=== PATIENT | female | born 1955 | race Asian ===

== ENCOUNTER 2018-12-02 13:02 | Emergency (ER) | payer OTHER ==
--- NOTE | 2018-12-02 14:26 | PDOC ---
History of Present Illness - General Chief Complaint: Abnormal Lab Results (Outside) Stated Complaint: ABNORMAL LABS Time Seen by Provider: 12/02/18 13:56 History Source: Care Provider, Family, Shelter Records Exam Limitations: Other (tracheostomy ) - History of Present Illness Initial Comments: 12/02/18 14:11 : [phone] Juan Carlos Choi Daughter: [phone] Edna Transplant surgeon: Dr. Shilo Manley Transplant stock feeder: Dr. Ngoc Valdez Vice President Quality Improvement: Dr. Johnathan Martinez Ms. Segovia is a 63F with extensive past medical history including chronic renal failure s/p renal transplantation February 2018. Her hospital course includes a diagnosis of flu in May 2018 which was complicated by aspergillus and parainfluenza 1. She was admitted to the ICU and found to be hypoxic and intubated. She had a PEG tube while in the ICU and underwent a tracheostomy prior to transfer to the transplant floor at [facility]. She was transferred to residential acute care and had two attempts to wean off vent but her hemoglobin dropped each time. Endoscopy 8 weeks ago did not show a source of bleeding. Hx of hemorrhoids. She has underwent dialysis TIW in the ICU but not outpatient. Daughter used to give erythropoietin every week but is unsure of her current regiment. She continues on her tacro regimen at the correction per daughter but unsure how often tacro levels are checked. She has left arm edema which has been intermittent since transplant. Left arm fistula works per correction. Presenting today because of hemoglobin drop. She denies nausea, vomiting, hemoptysis, or hematemesis. Denies shortness of breath. Denies blood in stool. Denies dysuria. Past History - Past Medical History Allergies/Adverse Reactions: Allergies Allergy/AdvReac Type Severity Reaction Status Date / Time perry Allergy Verified 12/02/18 13:50 peach Allergy Verified 12/02/18 13:50 Home Medications: Ambulatory Orders Aa/Hydrolyzed Collagen, Whey [Lps 15-30 Liquid] 30 ml GT DAILY 12/02/18 Acetaminophen 2 tablet GT PRN PRN 12/02/18 Acetaminophen 650 mg GT QID PRN 12/02/18 Ascorbic Acid [Vitamin C] 500 mg GT DAILY 12/02/18 Carvedilol 6.25 mg GT BID 12/02/18 Folic Acid 1 mg GT DAILY 12/02/18 Folic Acid/Vit B Complex and C [Renal Vitamin Tablet] 0.8 mg GT DAILY 12/02/18 Gabapentin 100 mg GT TID 12/02/18 Insulin Glargine,Hum.rec.anlog [Lantus Solostar PEN (NF)] 8 units SQ DAILY 12/02 Lactulose 10 gm GT DAILY 12/02/18 Mirtazapine 7.5 mg GT DAILY 12/02/18 Omeprazole 20 mg GT DAILY 12/02/18 Prednisone 50 mg GT DAILY 12/02/18 Scopolamine [Transderm-Scop] 1 each TD Q3D 12/02/18 Sertraline HCl 25 mg GT DAILY 12/02/18 Tacrolimus [Prograf] 5 mg GT BID 12/02/18 Vitamins A and D [Vitamin A and D] 113.4 gm TP BID 12/02/18 levETIRAcetam [Keppra Oral Solution -] 500 mg GT BID 12/02/18 Cardiac Disorders: Yes (CHF) COPD: No Diabetes: Yes GI Disorders: Yes (GERD) Disorders: Yes (Kidney failure on dialysis) HTN: Yes Psychiatric Problems: Yes (Major depression, anxiety) Seizures: Yes Other medical history: Respiratory failure - Surgical History Abdominal Surgery: Yes - Suicide/Smoking/Psychosocial Hx Smoking History: Unknown if ever smoked Hx Alcohol Use: No Drug/Substance Use Hx: No Review of Systems - Review of Systems Able to Perform ROS?: No (pt has trach, on vent ) *Physical Exam - Vital Signs Last Vital Signs Temp Pulse Resp BP Pulse Ox 99.7 F H 120 H 18 165/95 98 12/02/18 13:40 12/02/18 13:40 12/02/18 13:40 12/02/18 13:40 12/02/18 13:40 - Physical Exam General Appearance: Yes: Nourished. No: Apparent Distress HEENT: positive: EOMI, JULIANA Neck: positive: Tender, Other (tracheostomy in place ) Respiratory/Chest: positive: Wheezing (mild, at bases of lung ), Other (on vent) Cardiovascular: positive: Regular Rhythm, Tachycardia Vascular Pulses: Dorsalis-Pedis (R): 2+, Doralis-Pedis (L): 2+ Gastrointestinal/Abdominal: positive: Soft. negative: Tender Musculoskeletal: positive: Normal Inspection Extremity: positive: Normal Capillary Refill, Normal Range of Motion, Swelling ( left forearm ) Integumentary: positive: Normal Color, Dry, Warm Neurologic: positive: Fully Oriented, Alert, Normal Mood/Affect ED Treatment Course - LABORATORY CBC & Chemistry Diagram: 12/02/18 14:35 12/02/18 14:35 Medical Decision Making - Medical Decision Making 12/02/18 15:14 This is a 63F s/p renal transplant in Feb 2018, immunosuppressed on tacrolimus , on tracheostomy, presenting from correction with abnormal labs (decreased hemoglobin at 6.3). Today she has elevated heart rate and temperature. Sepsis work up started. Will obtain CBC, CMP, UA, CXR, lactic acid, urine culture, stool culture, stool O&P, U/S of left forearm, tacro level, and type and cross. 12/02/18 16:01 Given patient's hemoglobin, will transfuse 2 units of blood over 4 hours. Discussed the indications, risks, and benefits of blood transfusion with the patient, who consents to receiving blood products. Will admit for blood transfusion. 12/02/18 16:11 Labs show elevated WBC, Hemoglobin decreased at 6.8, and elevated BUN and Cr at 63.1 and 1.4. BNP is elevated at 645.6. We will give 20 mg Lasix x2, once before each unit of blood transfused. Laboratory Tests 12/02/18 12/02/18 14:35 14:35 WBC 21.3 H Hgb 6.8 L* BUN 63.1 H Creatinine 1.4 H B-Natriuretic Peptide 645.6 H 12/02/18 17:00 Blood transfusion and lasix held until access with 20 gauge needle can be obtained. Spoke with the intensive care team and nephrology team and given that the patient is less than 1 year s/p kidney transplant they would prefer to transfer her to the primary transplant team for continuity of care. Spoke with the Dr. Valdez, transplant stock feeder at [facility] who agrees to accept the patient for transfer. We will arrange for medical transport for an ED to ED transfer. *DC/Admit/Observation/Transfer Diagnosis at time of Disposition: Renal transplant recipient - Discharge Dispostion Disposition: TRANSFER ACUTE CARE/OTHER HOSP Condition at time of disposition: Guarded Decision to Admit order: No - Referrals - Patient Instructions - Post Discharge Activity - Transfer to Acute Care Facility Receiving Facility: [facility] Accepting Physician:: Dr. Valdez Transfer comment: Patient transfer accepted by transplant team for continuity of care.
[2018-12-02 14:51] VITALS: BMI 23.3
[2018-12-02 14:51] LABS: BASO % 0.4 % (0-2.0); EOS % 3.6 % (0-4.5); HEMATOCRIT 21.4 % (32.4-45.2); LYMPH % 4.8 % (8-40); MCH 29.6 pg (25.7-33.7); MCHC 31.8 g/dl (32.0-36.0); MEAN CELL VOLUME 92.8 fl (80-96); MEAN PLT VOLUME 6.6 fl (7.5-11.1); MONO % 2.4 % (3.8-10.2); NEUT % 88.8 % (42.8-82.8); PLATELET COUNT 336 K/MM3 (134-434); RBC 2.31 M/mm3 (3.60-5.2); RDW 17.8 % (11.6-15.6); WHITE BLOOD COUNT 21.3 K/mm3 (4.0-10.0)
[2018-12-02 14:58] LABS: VENOUS PC02 57.3 mmHg (41-51); VENOUS PH 7.3 (7.31-7.41); VENOUS PO2 43.1 mmHg (30-40)
[2018-12-02 15:00] LABS: HEMOGLOBIN 6.8 GM/dL (10.7-15.3)
[2018-12-02 15:13] LABS: INR 0.92 (0.83-1.09); PROTHROMBIN TIME (PATIENT) 10.9 SEC (9.7-13.0)
[2018-12-02 15:15] LABS: ACTIVATED PTT 33.7 SECONDS (25.2-36.5)
[2018-12-02 15:18] LABS: ALBUMIN 2.3 g/dl (3.4-5.0); BILIRUBIN,TOTAL 0.3 mg/dL (0.2-1); BLOOD UREA NITROGEN 63.1 mg/dL (7-18); CALCIUM 8.6 mg/dL (8.5-10.1); CREATININE 1.4 mg/dL (0.55-1.3); N-TERMINAL BNP 645.6 pg/ml (5-125); POTASSIUM 4.5 mmol/L (3.5-5.1)
[2018-12-02] MEDS ORDERED: FUROSEMIDE 40 MG/4 ML INJECTABLE VIAL IVPUSH ONE ×2 (16:01→16:08)
[2018-12-02] MEDS ORDERED: FUROSEMIDE 40 MG/4 ML INJECTABLE VIAL ONE (16:09)
[2018-12-02 16:10] LABS: ANISOCYTOSIS 1+; MACROCYTOSIS 0; PLATELET ESTIMATE NORMAL
[2018-12-02 16:57] LABS: EPI CELLS 7.3 /HPF (0-5/HPF); HYALINE CASTS 4 /lpf (0-8); URINE APPEARANCE CLEAR; URINE BACTERIA 1.9 /hpf (NEGATIVE); URINE BILIRUBIN NEGATIVE (NEGATIVE); URINE COLOR YELLOW; URINE GLUCOSE (UA) NEGATIVE (NEGATIVE); URINE KETONE NEGATIVE (NEGATIVE); URINE LEUK ESTERASE 2+ (NEGATIVE); URINE NITRITE NEGATIVE (NEGATIVE); URINE PROTEIN TRACE (NEGATIVE); URINE RBC 1 /hpf (0-4); URINE UROBILINOGEN 0.2 mg/dL (0.2-1.0); URINE WBC 7 /hpf (0-5)
--- NOTE | 2018-12-02 17:39 | PDOC ---
Documentation entered by Javi Dumont SCRIBE, acting as scribe for Jen Esquivel MD. Jen Esquivel MD: This documentation has been prepared by the Tim cooper Joel, SCRIBE, under my direction and personally reviewed by me in its entirety. I confirm that the documentation accurately reflects all work, treatment, procedures, and medical decision making performed by me. Attending Attestation - Resident Resident Name: Harsh Hart - HPI HPI: 12/02/18 16:24 The patient is a 63 year old female with a significant PMH of chronic renal failure s/p renal transplant (on Tacrolimus), CHF, DM, respiratory failure (s/p trach & vent) who presents to the emergency department for evaluation of low hemoglobin levels. The patients family states that the patient had a renal transplant in February 2018 and has a history of low hemoglobin levels at the long-term acute care she stays at. The patients family also notes intermittent left arm edema since the patients transplant. History is limited secondary to the patients condition. Allergies: NKDA Past surgical history: Unspecified abdominal surgery. Social history: No reported cigarette, alcohol, or drug use. PCP: Dr. Michael Transplant surgeon: Dr. Shilo Manley Transplant last remodeler repairer: Dr. Nogc Valdez - Physicial Exam PE: 12/02/18 17:34 Agree with resident exam. Patient is alert and oriented, connected to the vent , in no respiratory distress. + diffuse pitting edema to both arms and legs, worse than her chronic edema as per family. - Medical Decision Making 12/02/18 17:36 Pt presents to the ED for severe anemia. Grossly edematous. Will transfuse, treat with lasix and admit to medicine for continued monitoring.
[2018-12-02 21:43] VITALS: BP 160/89; PULSE 106; TEMP 98.2
--- NOTE | 2018-12-03 10:43 | EKG ---
Test Reason : Blood Pressure : / mmHG Vent. Rate : 110 BPM Atrial Rate : 110 BPM P-R Int : 148 ms QRS Dur : 076 ms QT Int : 320 ms P-R-T Axes : 061 068 058 degrees QTc Int : 433 ms SINUS TACHYCARDIA POSSIBLE LEFT ATRIAL ENLARGEMENT BORDERLINE ECG NO PREVIOUS ECGS AVAILABLE Confirmed by ALLIE MICHAEL, MARE ([id number]) on 12/03/2018 10:42:47 AM Referred By: Confirmed By:MARE KELLEY MD
--- NOTE | 2018-12-03 13:19 | PDOC ---
Patient Follow-up (Call Back) - Post ED Follow - Up Condition at time of discharge: Guarded Disposition at time of original discharge: TRANSFER ACUTE CARE/OTHER HOSP - Disposition Additional Instructions/Notes: Received callback from lab stating that patient's blood culture had gram positive cocci in clusters. Patient was noted to have been transferred to [facility]. Information regarding results was endorsed to MALLY Cardoza at [facility] ED.
== END 2018-12-02 22:20 | disposition short-term general hospital (02) ==
LOC: JER 13:02 → UNDOADMIN 16:01 → JERBED 16:01
DX: D64.9 Anemia, unspecified (principal); R60.0 Localized edema; D72.829 Elevated white blood cell count, unspecified; Z93.0 Tracheostomy status; Z94.0 Kidney transplant status; I11.0 Hypertensive heart disease with heart failure; I50.9 Heart failure, unspecified; E11.9 Type 2 diabetes mellitus without complications; Z79.4 Long term (current) use of insulin; Z99.11 Dependence on respirator [ventilator] status; F33.9 Major depressive disorder, recurrent, unspecified; F41.8 Other specified anxiety disorders
CPT/HCPCS: 36415; 71045-TC-FY; 80053; 81003; 82272; 82550; 82553; 82803; 83605; 83880; 84484; 85025; 85610; 85730; 86850; 86870; 86900; 86901; 86902; 86922; 87040; 87045; 87046; 87086; 87177; 87186; 87209; 87324; 87449; 93005; 93010; 99285-25

== ENCOUNTER 2018-12-30 19:24 | Emergency (ER) | payer OTHER ==
[2018-12-30 20:08] VITALS: TEMP 102.2; BMI 19.1
[2018-12-30] MEDS ORDERED: ACETAMINOPHEN 1000 MG/100 ML VIAL (NON FORMULARY) IVPB ONE (20:25)
[2018-12-30] MEDS ORDERED: ACETAMINOPHEN INJECTION 100 ML IVPB ONE (20:37)
[2018-12-30] MEDS ORDERED: SODIUM CHLORIDE 1,000 ML IV STA (20:44)
[2018-12-30] MEDS ORDERED: VANCOMYCIN 1 GM in D5W (PRE-DOCKED) 1,000 MG/250 ML IVPB ONE (20:52)
[2018-12-30] MEDS ORDERED: PIPERACILLIN/TAZOB 3.375 GM 3.375 GM in DEXTROSE 5%-WATER - 50 ML IVPB ONE (20:52)
--- NOTE | 2018-12-30 21:04 | PDOC ---
History of Present Illness - General Chief Complaint: Respiratory Stated Complaint: RESPIRATORY DISTRESS Time Seen by Provider: 12/30/18 20:23 History Source: Patient, Family (daughter), Senior Care Records, Old Records Exam Limitations: Other (trach tube, difficult to understand) - History of Present Illness Initial Comments: 12/30/18 20:55 63yo F PMH of chronic renal failure s/p renal transplant 02/2018 (on Prograf), CHF, HTN, Respiratory failure (s/p trach & vent), Seizure disorder, DM? BIBA from [facility] for [place]. [place], patient was saturating at 67% with HR of 129 and bp 216/119. Pt states she was having difficulty breathing today and felt better after suctioning. She was discharged from [facility] 12/22 and sent to [facility] due to sepsis and low hemoglobin. Pt states that she was doing fine until today. She denies chest pain, cough, chills, abdominal pain, n/v/d, dysuria, back pain, headaches. She says she is still able to produce urine. PMD: Fernanda Transplant Land Inspector: Dr. Valdez PMH: see hpi PSH; see hpi Meds: see med rec Allergies: nkda Past History - Past Medical History Allergies/Adverse Reactions: Allergies Allergy/AdvReac Type Severity Reaction Status Date / Time perry Allergy Verified 12/30/18 20:08 peach Allergy Verified 12/30/18 20:08 Home Medications: Ambulatory Orders Tacrolimus [Prograf] 5 mg GT BID 12/02/18 Vitamins A and D [Vitamin A and D] 113.4 gm TP BID 12/02/18 levETIRAcetam [Keppra Oral Solution -] 750 mg GT DAILY 12/02/18 Aa/Hydrolyzed Collagen, Whey [Lps 15-30 Liquid] 30 ml PO DAILY 12/30/18 Cholecalciferol (Vitamin D3) [Vitamin D3 -] 800 unit GT BID 12/30/18 Darbepoetin Mervin [Aranesp] 40 mcg IM WEEKLY 12/30/18 Fluconazole [Diflucan 40Mg/ml Suspension -] 5 ml GT TID 12/30/18 Heparin - 5,000 unit SQ BID 12/30/18 Lidocaine 5% Patch [Lidoderm Patch -] 1 patch TP DAILY 12/30/18 Metoprolol Tartrate 25 mg PO BID 12/30/18 Tramadol HCl [Ultram] 50 mg GT Q6H PRN 12/30/18 Cardiac Disorders: Yes (CHF) COPD: No Diabetes: Yes GI Disorders: Yes (GERD) Disorders: Yes (Kidney failure on dialysis) HTN: Yes Psychiatric Problems: Yes (Major depression, anxiety) Seizures: Yes - Surgical History Abdominal Surgery: Yes - Suicide/Smoking/Psychosocial Hx Smoking History: Unknown if ever smoked Hx Alcohol Use: No Drug/Substance Use Hx: No Review of Systems - Review of Systems Constitutional: No: Chills, Fever HEENTM: No: Symptoms Reported Respiratory: Yes: Shortness of Breath. No: Cough Cardiac (ROS): No: Chest Pain, Palpitations, Syncope ABD/GI: No: Constipated, Diarrhea, Nausea, Vomiting, Abdominal cramping : No: Burning, Dysuria Musculoskeletal: No: Symptoms Reported Integumentary: No: Symptoms Reported Neurological: No: Symptoms reported *Physical Exam - Vital Signs Last Vital Signs Temp Pulse Resp BP Pulse Ox 102.2 F H 138 H 22 H 155/95 98 12/30/18 20:04 12/30/18 20:04 12/30/18 20:04 12/30/18 20:04 12/30/18 20:04 - Physical Exam General Appearance: Yes: Moderate Distress, Thin HEENT: positive: EOMI, JULIANA, Other (dental plaques) Neck: positive: Trachea midline, Supple, Other (tracheostomy tube) Respiratory/Chest: positive: Respiratory Distress, Rhonchi. negative: Accessory Muscle Use, Crackles, Wheezing Cardiovascular: positive: S1, S2, Tachycardia. negative: Edema, JVD, Murmur Vascular Pulses: Dorsalis-Pedis (R): 1+, Doralis-Pedis (L): 1+ Gastrointestinal/Abdominal: positive: Normal Bowel Sounds, Soft, Other (PEG tube ). negative: Tender, Guarding, Rebound Musculoskeletal: negative: CVA Tenderness Extremity: positive: Other (LUE pitting edema with palpable thrill in AV fistula. thin RUE and LE bilaterally, no edema). negative: Coldness, Cyanosis, Swelling, Calf Tenderness Integumentary: positive: Normal Color, Dry, Warm, Other (6x7 cm stage 4 sacral ulcer) Neurologic: positive: title examiner II-XII NML intact, Fully Oriented, Alert, Normal Mood/ Affect, Normal Response ED Treatment Course - LABORATORY CBC & Chemistry Diagram: 12/30/18 21:00 12/30/18 21:00 - RADIOLOGY Radiology Studies Ordered: Category Date Time Status CHEST X-RAY PORTABLE* [RAD] Stat Radiology 12/30/18 20:24 Taken Medical Decision Making - Critical Care Time Total Critical Care Time (minutes): 30 Critical Care Statement: The care of this patient involved high complexity decision making to prevent further life threatening deterioration of the patient 's condition and/or to evaluate & treat vital organ system(s) failure or risk of failure. - Medical Decision Making 12/30/18 21:04 63yo F PMH of chronic renal failure s/p renal transplant 02/2018 (on Prograf), CHF, HTN, Respiratory failure (s/p trach & vent), Seizure disorder, DM? BIBA from [facility] [place]. [place], patient was saturating at 67% with FiO2 at 21% with HR of 129 and bp 216/119. Pt states she was having difficulty breathing today and felt better after suctioning. She was discharged from [facility] 12/22 and sent to [facility] due to sepsis and low hemoglobin. Pt states that she was doing fine until today. She denies chest pain, cough, chills , abdominal pain, n/v/d, dysuria, back pain, headaches. She says she is still able to produce urine. Vitals: tachcyardic, tachypneic, saturating 100% on vent via trach at 40%FiO2 , febrile 102 PE: rhonchi in both lung campbell, diaphoretic, L arm pitting edema with palpable thrill. Sacral ulcer stage 4, 6x7cm ddx includes but not limited to concerning for pna or infectious process v. fluid overload. Pt is on immunosupressants. sepsis w/u. giving fluids, ofirmev, vanc/zosyn. will call transplant team at [facility] 12/30/18 21:05 spoke to transplant hydrogeology professor Dr. Jones at [facility] covering for Dr. Valdez. Agrees with transfer, is calling icu and will call back regarding availability. labs significant for white count 28. hgb 12, not neutropenic. chem sig for cr 1.9 (1.4 12/02/18). pH VBG 7.22 with elevated CO2, likely respiratory acidosis. No anion gap or lactic acidosis, could be uremic. bnp pending. CXR shows bilateral infiltrates v. congestion. Likely infiltrates given clinical presentation. UA pending. EKG: sinus tachycardia at 142, pr 132, qtc 439. no leila or depressions. 12/30/18 22:[address] Jones (covering for Dr. Valdez) at [facility]. Agrees to transfer but cannot accept patient under service due to pt needing ICU. Spoke to Agri Business Agent Dr. Betancourt at [facility], will accept patient however no beds available. Suggested ER-ER transfer. Spoke to ER attending Dr. Victor who will see pt in ED. UA positive for infection. getting antibiotics. UTI v. PNA (pna v. chf) with respiratory acidosis. Maintaining MAPS. Pt and consented to transfer. Pt on monitor, Vent, Vanc,Zosyn. *DC/Admit/Observation/Transfer Diagnosis at time of Disposition: Sepsis Qualifiers: Sepsis type: sepsis due to unspecified organism Qualified Code(s): A41.9 - Sepsis, unspecified organism UTI (urinary tract infection) Qualifiers: Urinary tract infection type: site unspecified Hematuria presence: without hematuria Qualified Code(s): N39.0 - Urinary tract infection, site not specified PNA (pneumonia) Qualifiers: Pneumonia type: due to unspecified organism Laterality: bilateral Lung location : unspecified part of lung Qualified Code(s): J18.9 - Pneumonia, unspecified organism - Discharge Dispostion Disposition: TRANSFER ACUTE CARE/OTHER HOSP - Referrals Referrals: Manas Michael MD [Primary Care Provider] - - Patient Instructions - Post Discharge Activity
[2018-12-30 21:16] LABS: VENOUS PC02 67.2 mmHg (41-51); VENOUS PH 7.22 (7.31-7.41); VENOUS PO2 36.4 mmHg (30-40)
[2018-12-30] MEDS ORDERED: VANCOMYCIN 1 GRAM (PRE-DOCKED) 1,000 MG/250 ML BAG IVPB ONE (21:19)
[2018-12-30] MEDS ORDERED: PIPERACILLIN/TAZOB 3.375 GM 3.375 GM/50 ML BAG IVPB ONE (21:20)
--- NOTE | 2018-12-30 21:24 | PDOC ---
Documentation entered by Kristy Easton SCRIBE, acting as scribe for Kirstni Tran MD. Kirstin Tran MD: This documentation has been prepared by the scribe, Kristy Easton SCRIBE, under my direction and personally reviewed by me in its entirety. I confirm that the documentation accurately reflects all work, treatment, procedures, and medical decision making performed by me. Attending Attestation - Resident Resident Name: RikaJulisa - ED Attending Attestation I have performed the following: I have examined & evaluated the patient, The case was reviewed & discussed with the resident, I agree w/resident's findings & plan, Exceptions are as noted - HPI HPI: 12/30/18 20:35 63-year-old female brought in by ambulance from a [facility] for respiratory distress and sepsis. She is febrile, status post renal transplant 2018 and recently discharged from [facility] : [phone] Soon Jimbo Daughter: [phone] Edna Transplant surgeon: Dr. Shilo Manley Transplant information delivery analyst: Dr. Ngoc Valdez Etl Consultant: Dr. Johnathan Martinez - Physicial Exam PE: 12/30/18 20:50 GENERAL: 63 yo femlae in repsitaory distress upon arrival with hypoxia and tachycardia HEENT: Normocephalic, atraumatic. PERRLA, EOMI. No conjunctival pallor. Sclera are non- icteric. Moist mucous membranes. Oropharynx is clear. NECK: tracheostomy tube intact, pt on vent CARDIOVASCULAR: ++tachycardia PULMONARY: ++ coarse rhonchi. ABDOMINAL: Soft. Non-tender MUSCULOSKELETAL Normal range of motion at all joints. No bony deformities or tenderness. No CVA tenderness. EXTREMITIES: No cyanosis. No clubbing. No edema. No calf tenderness. SKIN: +++stage 4 decubitus ulcer 6cm x 7 cm No jaundice. NEUROLOGICAL: Alert, awake, appropriate. PSYCHIATRIC: Cooperative. Good eye contact. Appropriate mood and affect. 12/30/18 21:19 12/30/18 21:23 - Medical Decision Making 12/30/18 23:12 patient presents tachycardic, febrile, hypoxic uA is positive for 1002 WBCs, +3 leuks, greater than 400 Bacteria cr=1.9 , bun=57 cxr: + chf vs infiltrates. Vanco and zosyn given After suctioning patient's respiratory status improved Pt's previously treated at [facility] and d/c from their facilty 12/22/18 IMP urosepsis,mucus plug in trach(removed),renal transplant pt Since her renal transplant team is at [facility] she has been accepted there and is currently being transferred
[2018-12-30 21:27] LABS: BASO % 0.4 % (0-2.0); EOS % 1.9 % (0-4.5); HEMATOCRIT 36.9 % (32.4-45.2); LYMPH % 3.3 % (8-40); MCH 30.5 pg (25.7-33.7); MCHC 32.4 g/dl (32.0-36.0); MEAN CELL VOLUME 94.1 fl (80-96); MEAN PLT VOLUME 6.8 fl (7.5-11.1); MONO % 3.9 % (3.8-10.2); NEUT % 90.5 % (42.8-82.8); PLATELET COUNT 341 K/MM3 (134-434); RBC 3.92 M/mm3 (3.60-5.2); RDW 16.4 % (11.6-15.6)
[2018-12-30 21:39] LABS: INR 0.95 (0.83-1.09); PROTHROMBIN TIME (PATIENT) 11.2 SEC (9.7-13.0)
[2018-12-30 21:44] LABS: ALBUMIN 3.3 g/dl (3.4-5.0); BILIRUBIN,TOTAL 0.4 mg/dL (0.2-1); BLOOD UREA NITROGEN 57.9 mg/dL (7-18); CREATININE 1.9 mg/dL (0.55-1.3); POTASSIUM 4.7 mmol/L (3.5-5.1); TOT PROT 7.8 g/dl (6.4-8.2)
[2018-12-30 22:10] LABS: EPI CELLS 5.5 /HPF (0-5/HPF); HYALINE CASTS 20 /lpf (0-8); URINE APPEARANCE TURBID; URINE BACTERIA 469.3 /hpf (NEGATIVE); URINE BILIRUBIN NEGATIVE (NEGATIVE); URINE COLOR YELLOW; URINE GLUCOSE (UA) NEGATIVE (NEGATIVE); URINE KETONE NEGATIVE (NEGATIVE); URINE LEUK ESTERASE 3+ (NEGATIVE); URINE NITRITE NEGATIVE (NEGATIVE); URINE PROTEIN 2+ (NEGATIVE); URINE RBC 6 /hpf (0-4); URINE UROBILINOGEN 0.2 mg/dL (0.2-1.0); URINE WBC 1002 /hpf (0-5)
[2018-12-30 22:11] LABS: N-TERMINAL BNP 4609.7 pg/ml (5-125)
[2018-12-31 00:32] VITALS: BP 166/96; PULSE 109
--- NOTE | 2018-12-31 08:26 | EKG ---
Test Reason : Blood Pressure : / mmHG Vent. Rate : 142 BPM Atrial Rate : 142 BPM P-R Int : 132 ms QRS Dur : 076 ms QT Int : 286 ms P-R-T Axes : 051 072 083 degrees QTc Int : 439 ms POOR DATA QUALITY, INTERPRETATION MAY BE ADVERSELY AFFECTED SINUS TACHYCARDIA LEFT ATRIAL ENLARGEMENT NONSPECIFIC ST ABNORMALITY ABNORMAL ECG WHEN COMPARED WITH ECG OF 02-DEC-2018 14:35, ST NOW DEPRESSED IN LATERAL LEADS T WAVE INVERSION NO LONGER EVIDENT IN ANTERIOR LEADS Confirmed by ALLIE MICHAEL, MARE ([id number]) on 12/31/2018 8:26:32 AM Referred By: Confirmed By:MARE KELLEY MD
== END 2018-12-30 23:30 | disposition short-term general hospital (02) ==
LOC: JER 19:24
PROC: 3E0337Z Introduction of Electrolytic and Water Balance Substance into Peripheral Vein, Percutaneous Approach (ICD-10-PCS; principal; 2018-12-30)
PROC: 3E03329 Introduction of Other Anti-infective into Peripheral Vein, Percutaneous Approach (ICD-10-PCS; 2018-12-30)
PROC: 3E033NZ Introduction of Analgesics, Hypnotics, Sedatives into Peripheral Vein, Percutaneous Approach (ICD-10-PCS; 2018-12-30)
PROC: 3E03329 Introduction of Other Anti-infective into Peripheral Vein, Percutaneous Approach (ICD-10-PCS; 2018-12-30)
DX: A41.9 Sepsis, unspecified organism (principal); J18.9 Pneumonia, unspecified organism; N39.0 Urinary tract infection, site not specified; T17.890A Other foreign object in other parts of respiratory tract causing asphyxiation, initial encounter; X58.XXXA Exposure to other specified factors, initial encounter; Y93.89 Activity, other specified; Y92.122 Bedroom in nursing home as the place of occurrence of the external cause; Y99.8 Other external cause status; Z43.0 Encounter for attention to tracheostomy; Z94.0 Kidney transplant status; I11.0 Hypertensive heart disease with heart failure; I50.9 Heart failure, unspecified; E11.9 Type 2 diabetes mellitus without complications; Z99.11 Dependence on respirator [ventilator] status
CPT/HCPCS: 36415; 71045-TC-FY; 80053; 81003; 82803; 83605; 83880; 84484; 85025; 85610; 85730; 87040; 87086; 87186; 93005; 93010; 96361; 96365; 96375; 99285-25; J0131; J7030

== ENCOUNTER 2019-08-13 23:08 | Inpatient (IN) | payer OTHER ==
--- NOTE | 2019-08-13 23:13 | PDOC ---
History of Present Illness - General Stated Complaint: RESPIRATORY DISTRESS Time Seen by Provider: 08/13/19 23:11 - History of Present Illness Initial Comments: 08/13/19 23:48 63yoF with ESRD, Renal transplant (15months ago), Trach/.vent dependent, Anemi a, HTN, CHF, pnuemonia on ceftriaxone regimen who presents with hypotension, tachycardia and fever. The patient was satting in the low 90s, BP 77/46, T99.5F. The patient has a history of flu, pna and aspergillosus in 05/2018. Admitted to ICU, had PEG tube placement, transferred to [facility] and had Trach placed. Patient cannot provide further history at this time but is awake and alert ROS unable to obtain 2/2 trach PE GENERAL: Awake, alert HEAD: No signs of trauma, normocephalic, atraumatic EYES: EOMI, sclera anicteric, conjunctiva clear ENT: oropharynx clear without exudates. Moist mucosa NECK: Normal ROM, supple LUNGS: No distress, speaks full sentences, coarse breath sounds anteriorly HEART: tachycardic rate and rhythm, normal S1 and S2, no murmurs, rubs or gallops, peripheral pulses normal and equal bilaterally. ABDOMEN: Soft, nontender, No guarding, no rebound. No masses EXTREMITIES : Normal inspection, Normal range of motion, no edema. No clubbing or cyanosis. NEUROLOGICAL: no focal deficits SKIN: Warm, Dry, normal turgor, no rashes or lesions noted MDM DDX including but not limited to: Sepsis 2/2 pna vs uti r/o influenza vs rsv vs covid ED Course: CBCD WBC 31.9 K/mm3 (4.0-10.0) H* 08/13/19 23:30 RBC 2.10 M/mm3 (3.60-5.2) L 08/13/19 23:30 Hgb 7.1 GM/dL (10.7-15.3) L 08/13/19 23:30 Hct 21.3 % (32.4-45.2) L D 08/13/19 23:30 MCV 101.6 fl (80-96) H 08/13/19 23:30 MCHC 33.5 g/dl (32.0-36.0) 08/13/19 23:30 RDW 15.5 % (11.6-15.6) 08/13/19 23:30 Plt Count 232 K/MM3 (134-434) D 08/13/19 23:30 MPV 7.4 fl (7.5-11.1) L 08/13/19 23:30 CMP Sodium 146 mmol/L (136-145) H 08/13/19 23:30 Potassium 4.1 mmol/L (3.5-5.1) 08/13/19 23:30 Chloride 111 mmol/L (98-107) H 08/13/19 23:30 Carbon Dioxide 24 mmol/L (21-32) 08/13/19 23:30 Anion Gap 11 MMOL/L (8-16) 08/13/19 23:30 BUN 78.9 mg/dL (7-18) H 08/13/19 23:30 Creatinine 3.9 mg/dL (0.55-1.3) H 08/13/19 23:30 Calcium 9.7 mg/dL (8.5-10.1) 08/13/19 23:30 Total Bilirubin 0.4 mg/dL (0.2-1) 08/13/19 23:30 AST 25 U/L (15-37) 08/13/19 23:30 ALT 23 U/L (13-61) 08/13/19 23:30 Alkaline Phosphatase 76 U/L (45-117) 08/13/19 23:30 Total Protein 6.4 g/dl (6.4-8.2) 08/13/19 23:30 Albumin 2.0 g/dl (3.4-5.0) L 08/13/19 23:30 Patient hypotensive, tachycardic, trach, hypoxic Patient with labwork significnat for leukocytosis (31.9), anemia (7/21.3) and GORDON (Cr 3.9) Patient given fluid resus, vanc, zosyn, tylenol guiac negative CXR: multilobar PNA EKG: sinus tach 106bpm, Patient's transplant surgeons and patient's regular care at [facility]. [facility] case with [facility] Georges[facility] Central line and levophed pressor started for patient repeat suctioning required for mucus plug Pending transport to Montefilupe Brewster, PGY2 Emergency Medicine Past History - Past Medical History Allergies/Adverse Reactions: Allergies Allergy/AdvReac Type Severity Reaction Status Date / Time perry Allergy Verified 08/14/19 00:45 peach Allergy Verified 08/14/19 00:45 prunes Allergy Verified 08/14/19 00:45 Home Medications: Ambulatory Orders Tacrolimus [Prograf] 5 mg GT BID 12/02/18 Vitamins A and D [Vitamin A and D] 113.4 gm TP BID 12/02/18 levETIRAcetam [Keppra Oral Solution -] 750 mg GT DAILY 12/02/18 Aa/Hydrolyzed Collagen, Whey [Lps 15-30 Liquid] 30 ml PO DAILY 12/30/18 Cholecalciferol (Vitamin D3) [Vitamin D3 -] 800 unit GT BID 12/30/18 Darbepoetin Mervin [Aranesp] 40 mcg IM WEEKLY 12/30/18 Fluconazole [Diflucan 40Mg/ml Suspension -] 5 ml GT TID 12/30/18 Heparin - 5,000 unit SQ BID 12/30/18 Lidocaine 5% Patch [Lidoderm Patch -] 1 patch TP DAILY 12/30/18 Metoprolol Tartrate 25 mg PO BID 12/30/18 Tramadol HCl [Ultram] 50 mg GT Q6H PRN 12/30/18 Cardiac Disorders: Yes (CHF) COPD: No Diabetes: Yes GI Disorders: Yes (GERD) Disorders: Yes (Kidney failure on dialysis) HTN: Yes Psychiatric Problems: Yes (Major depression, anxiety) Seizures: Yes - Surgical History Abdominal Surgery: Yes - Psycho Social/Smoking Cessation Hx Smoking History: Unknown if ever smoked Hx Alcohol Use: No Drug/Substance Use Hx: No ED Treatment Course - LABORATORY CBC & Chemistry Diagram: 08/13/19 23:30 08/13/19 23:30 Discharge - Discharge Information Problems reviewed: Yes Clinical Impression/Diagnosis: Sepsis, PNA (pneumonia), Renal transplant recipient, Anemia, Renal failure Condition: Critical Disposition: TRANSFER ACUTE CARE/OTHER HOSP - Follow up/Referral Referrals: Manas Michael MD [Primary Care Provider] - - Patient Discharge Instructions - Post Discharge Activity
[2019-08-13] MEDS ORDERED: ACETAMINOPHEN 1000 MG/100 ML VIAL (NON FORMULARY) IVPB ONE (23:24)
[2019-08-13] MEDS ORDERED: VANCOMYCIN 1 GM in D5W (PRE-DOCKED) 1,000 MG/250 ML IVPB ONE (23:24)
[2019-08-13] MEDS ORDERED: PIPERACILLIN/TAZOB 2.25 GM 2.25 GM in DEXTROSE 5%-WATER - 50 ML IVPB ONE (23:24)
[2019-08-13] MEDS ORDERED: PIPERACILLIN/TAZOB 2.25 GM 2.25 GM/50 ML BAG IVPB ONE (23:37)
[2019-08-13] MEDS ORDERED: VANCOMYCIN 1 GRAM (PRE-DOCKED) 1,000 MG/250 ML BAG IVPB ONE (23:37)
[2019-08-13] MEDS ORDERED: ACETAMINOPHEN INJECTION 100 ML IVPB ONE (23:37)
[2019-08-13 23:43] LABS: BASO % 0.5 % (0-2.0); EOS % 0.1 % (0-4.5); HEMATOCRIT 21.3 % (32.4-45.2); HEMOGLOBIN 7.1 GM/dL (10.7-15.3); LYMPH % 11.8 % (8-40); MCHC 33.5 g/dl (32.0-36.0); MEAN CELL VOLUME 101.6 fl (80-96); MEAN PLT VOLUME 7.4 fl (7.5-11.1); MONO % 2.7 % (3.8-10.2); NEUT % 84.9 % (42.8-82.8); PLATELET COUNT 232 K/MM3 (134-434); RDW 15.5 % (11.6-15.6)
[2019-08-13 23:45] LABS: ARTERIAL BLD GAS O2 SATURATION 97.7 % (95-98); ARTERIAL BLOOD GAS BASE EXCESS -0.9 meq/l (-2-2); ARTERIAL BLOOD GAS PCO2 38.2 mmHg (35-45); ARTERIAL BLOOD GAS PO2 98.1 mmHg (80-100); CARBOXYHEMOGLOBIN 2.6 % (0-2)
[2019-08-13 23:50] LABS: WHITE BLOOD COUNT 31.9 K/mm3 (4.0-10.0)
[2019-08-13 23:51] LABS: INR 1.39 (0.83-1.09); PROTHROMBIN TIME (PATIENT) 16.4 SEC (9.7-13.0)
[2019-08-13 23:54] LABS: ACTIVATED PTT 40.8 SECONDS (25.2-36.5)
[2019-08-13] MEDS ORDERED: SODIUM CHLORIDE 0.9% 1000 ML INFUS.BAG IV ONE (23:54)
--- NOTE | 2019-08-14 00:09 | PDOC ---
Documentation entered by Philly Jennings SCRIBE, acting as scribe for Stacy Franco DO. Stacy Franco DO: This documentation has been prepared by the kenneth, Philly Jennings SCRIBE, under my direction and personally reviewed by me in its entirety. I confirm that the documentation accurately reflects all work, treatment, procedures, and medical decision making performed by me. Attending Attestation - Resident Resident Name: Melva Brewster - ED Attending Attestation I have performed the following: I have examined & evaluated the patient, The case was reviewed & discussed with the resident, I agree w/resident's findings & plan, Exceptions are as noted - HPI HPI: 08/14/19 00:15 The patient is a 63-year-old female with a past medical history significant for chronic renal failure s/p renal transplant (02/2018, at [facility] w/ Dr. Sandeep Valdez), CHF, HTN, Respiratory failure s/p trach who presents to the emergency department from [facility] with hypotension and hypoxia. The patient had lab work done yesterday, which was significant for elevated WBC and CXR significant for pneumonia. The patient denies chest pain. History is limited due to the patient's clinical condition. The patient's reports the patient is verbal at the baseline. He last saw the patient on Saturday, and the patient was doing fine. The reports the patient has been working with respiratory to have the trach removed, the patient would do intermittent on and off the vent. Patient currently isn't doing dialysis The reports the patient had a Kidney transplant 02/2018 at [facility] with Dr. Sandeep Valdez. Following the patient stopped dialysis. The reports the patient was doing until May of that year. The patient had a fever, unrelieved with medication. The patient was seen at [facility] ER, was diagnosed with pneumonia, intubated for 2 weeks without improvement, then switched over to trach. The patient stayed at the ICU for 3 months, 1 month on the floor, then was discharged to a [facility] in [place]. The patient was discharged from the facility to [facility] in November of 2018. Allergies: Malin and peach PMD: Fernanda Transplant Press Loader: Dr. Vladez at [facility]. - Physicial Exam PE: 08/14/19 00:32 GENERAL: Awake. Lethargic, Cachectic appearing. in no acute distress HEAD: No signs of trauma EYES: PERRLA, EOMI, sclera anicteric, conjunctiva clear ENT: Auricles normal inspection, hearing grossly normal, nares patent, oropharynx clear without exudates. Moist mucosa NECK: +trach in place, with thick mucus production. LUNGS: +very coarse breath sounds bilaterally. HEART: +tachycardic, hypotensive. ABDOMEN: Peg tube in place, Soft, nontender. +light brown diarrhea. EXTREMITIES: Left upper extremity AV fistula with bruit and thrill. no edema. No clubbing or cyanosis. No cords, erythema, or tenderness NEUROLOGICAL: Nonverbal, responsive. Moving all extremity, generalized weakness. SKIN: Hot to touch, Temperature at the ER 100. - Critical Care Time Total Critical Care Time: 60 Critical Care Statement: The care of this patient involved high complexity decision making to prevent further life threatening deterioration of the patient's condition and/or to evaluate & treat vital organ system(s) failure or risk of failure. - Medical Decision Making 08/14/19 00:01 I, Dr. Stacy Franco, DO, attest that this document has been prepared under my direction and personally reviewed by me in its entirety. I further attest, that it accurately reflects all work, treatment, procedures and medical decision-making performed by me. a/p: 63yo female presents from [facility] for eval of hypoxia, hypotension -pt is chronic trach -pt is s/p renal transplant 15m ago at [facility] -pt had a complacated stay resulting in pna, trach, peg and the LT trach facility, on and off hd -pt arrives febrile, tachy, hypoxic on the vent, hypotensive -pt with records that show wbc of 22 and pna on xray- started on tamiflu and rocephin at the facility -pt awake, nonverbal, generally weak -LUE av fistula with bruit and thrill -peg and trach in place -case discussed with dr. mosley covering (Dr. Valdez) transplant that states pt can be managed anywhere, doesn't require transplant transfer at this time -pt will need admission and abx, broad spectrum abx ordered, thick secretions from trach, will straight cath -wbc 32 upon arrival -sepsis orderset started 08/14/19 00:30 pt with cr 3.9, prior cr 1.9 hgb 7 from 12 stool for heme ordered and sent discussed with the who agrees to a blood transfusion pt will need ICU monitoring, requests transfer to [facility] ICU, daughter works at [facility] -call placed to the transfer center Case discussed with Dr. Georges (critical care doctor). 08/14/19 00:53 pt still hypotensive, will place central line 08/14/19 01:45 central line placed by the resident levophed ordered blood pending pending transfer to [facility] icu Heart Score/ECG Review - ECG Intrepretation Comment:: 08/14/19 00:31 sinus tach at 106, nl axis, nl interval, no acute st/t wave findings Discharge - Discharge Information Problems reviewed: Yes Clinical Impression/Diagnosis: Sepsis, PNA (pneumonia), Renal transplant recipient, Anemia, Renal failure Condition: Critical Disposition: TRANSFER ACUTE CARE/OTHER HOSP - Follow up/Referral Referrals: Manas Michael MD [Primary Care Provider] - - Patient Discharge Instructions - Post Discharge Activity - Transfer to Acute Care Facility Receiving Facility Name: [facility] [address] [facility] [address] Accepting Physician:: Dr. Georges
[2019-08-14 00:20] LABS: BILIRUBIN,TOTAL 0.4 mg/dL (0.2-1); BLOOD UREA NITROGEN 78.9 mg/dL (7-18); CALCIUM 9.7 mg/dL (8.5-10.1); CREATININE 3.9 mg/dL (0.55-1.3); POTASSIUM 4.1 mmol/L (3.5-5.1); TOT PROT 6.4 g/dl (6.4-8.2)
[2019-08-14] MEDS ORDERED: ALBUTEROL SO4 2.5/IPRATROPIUM 0.5 INH SOL 3 ML VIAL.NEB. NEB ONE (00:32)
[2019-08-14] MEDS: ALBUTEROL SO4 2.5/IPRATROPIUM 0.5 INH SOL 3 ML VIAL.NEB. NEB SCH ×2 (00:39→00:48)
[2019-08-14 01:01] LABS: MAGNESIUM 2.8 mg/dL (1.8-2.4); PHOSPHOROUS 2.6 mg/dL (2.5-4.9)
[2019-08-14 01:48] LABS: EPI CELLS 33 /HPF (0-5/HPF); HYALINE CASTS 5 /lpf (0-8); URINE APPEARANCE CLOUDY; URINE BACTERIA 5 /hpf (NEGATIVE); URINE BILIRUBIN 1+ (NEGATIVE); URINE COLOR DK YELLOW; URINE GLUCOSE (UA) NEGATIVE (NEGATIVE); URINE KETONE TRACE (NEGATIVE); URINE LEUK ESTERASE TRACE (NEGATIVE); URINE NITRITE NEGATIVE (NEGATIVE); URINE PROTEIN 2+ (NEGATIVE); URINE UROBILINOGEN 0.2 mg/dL (0.2-1.0); URINE WBC 66 /hpf (0-5)
[2019-08-14] MEDS: NOREPINEPHRINE BITARTRATE 8,000 MCG in DEXTROSE 5%-WATER - 492 ML IV SCH (01:55)
[2019-08-14 02:39] LABS: URINE RBC 11.9 /hpf (0-4)
[2019-08-14] MEDS ORDERED: SODIUM CHLORIDE 1,000 ML IV SCH ×3 (05:30→16:16)
--- NOTE | 2019-08-14 07:40 | PDOC ---
*Physical Exam - Vital Signs Last Vital Signs Temp Pulse Resp BP Pulse Ox 98.4 F 98 H 32 H 83/57 L 94 L 08/14/19 04:20 08/14/19 06:15 08/14/19 06:15 08/14/19 06:15 08/14/19 06:15 - Physical Exam 08/14/19 07:40 Received patient at sign out from the night team ED Treatment Course - LABORATORY CBC & Chemistry Diagram: 08/23/19 10:50 08/23/19 10:50 - ADDITIONAL ORDERS Additional order review: Laboratory Results 08/14/19 08/14/19 08/14/19 05:00 00:42 00:33 PT with INR INR PTT (Actin FS) Anticoagulation Therapy Puncture Site ABG pH ABG pCO2 at Pt Temp ABG pO2 at Pt Temp ABG HCO3 ABG O2 Sat (Measured) ABG O2 Content ABG Base Excess Bhupendra Test Carboxyhemoglobin Methemoglobin Patient On Oxygen O2 Delivery Device Oxygen Flow Rate Vent Mode Vent Rate Mechanical Rate Pressure Support Vent Sodium Potassium Chloride Carbon Dioxide Anion Gap BUN Creatinine Est GFR (CKD-EPI)AfAm Est GFR (CKD-EPI)NonAf Random Glucose Lactic Acid 1.5 2.3 H* Calcium Phosphorus Magnesium Total Bilirubin AST ALT Alkaline Phosphatase Troponin I B-Natriuretic Peptide Total Protein Albumin Urine Color Urine Appearance Urine pH Ur Specific [place] Urine Protein Urine Glucose (UA) Urine Ketones Urine Blood Urine Nitrite Urine Bilirubin Urine Urobilinogen Ur Leukocyte Esterase Urine WBC (Auto) Urine RBC (Auto) Urine Casts (Auto) U Pathogenic Cast Auto U Epithel Cells (Auto) U Sm Round Cell (Auto) Urine Bacteria (Auto) Stool Occult Blood Blood Type B POSITIVE Antibody Screen Positive Crossmatch See Detail 08/14/19 08/14/19 08/13/19 00:28 00:25 23:30 PT with INR INR PTT (Actin FS) Anticoagulation Therapy Puncture Site ABG pH ABG pCO2 at Pt Temp ABG pO2 at Pt Temp ABG HCO3 ABG O2 Sat (Measured) ABG O2 Content ABG Base Excess Bhupendra Test Carboxyhemoglobin Methemoglobin Patient On Oxygen O2 Delivery Device Oxygen Flow Rate Vent Mode Vent Rate Mechanical Rate Pressure Support Vent Sodium 146 H Potassium 4.1 Chloride 111 H Carbon Dioxide 24 Anion Gap 11 BUN 78.9 H Creatinine 3.9 H Est GFR (CKD-EPI)AfAm 13.49 Est GFR (CKD-EPI)NonAf 11.64 Random Glucose 181 H Lactic Acid Calcium 9.7 Phosphorus 2.6 Magnesium 2.8 H Total Bilirubin 0.4 AST 25 ALT 23 Alkaline Phosphatase 76 Troponin I 0.02 B-Natriuretic Peptide 9443.0 H Total Protein 6.4 Albumin 2.0 L Urine Color Dk yellow Urine Appearance Cloudy Urine pH 5.0 Ur Specific [place] 1.020 Urine Protein 2+ H Urine Glucose (UA) Negative Urine Ketones Trace H Urine Blood Negative Urine Nitrite Negative Urine Bilirubin 1+ H Urine Urobilinogen 0.2 Ur Leukocyte Esterase Trace Urine WBC (Auto) 66 Urine RBC (Auto) 11.9 Urine Casts (Auto) 5 U Pathogenic Cast Auto None seen U Epithel Cells (Auto) 33 U Sm Round Cell (Auto) None seen Urine Bacteria (Auto) 5 Stool Occult Blood Negative Blood Type Antibody Screen Crossmatch 08/13/19 08/13/19 23:30 23:30 PT with INR 16.40 H INR 1.39 H PTT (Actin FS) 40.8 H Anticoagulation Therapy No Result Required. Puncture Site No Result Required. ABG pH 7.40 ABG pCO2 at Pt Temp 38.2 ABG pO2 at Pt Temp 98.1 ABG HCO3 23.2 ABG O2 Sat (Measured) 97.7 ABG O2 Content 4.2 ABG Base Excess -0.9 Bhupendra Test No Result Required. Carboxyhemoglobin 2.6 H Methemoglobin 3.9 H* Patient On Oxygen No Result Required. O2 Delivery Device No Result Required. Oxygen Flow Rate No Result Required. Vent Mode No Result Required. Vent Rate No Result Required. Mechanical Rate No Result Required. Pressure Support Vent No Result Required. Sodium Potassium Chloride Carbon Dioxide Anion Gap BUN Creatinine Est GFR (CKD-EPI)AfAm Est GFR (CKD-EPI)NonAf Random Glucose Lactic Acid Calcium Phosphorus Magnesium Total Bilirubin AST ALT Alkaline Phosphatase Troponin I B-Natriuretic Peptide Total Protein Albumin Urine Color Urine Appearance Urine pH Ur Specific [place] Urine Protein Urine Glucose (UA) Urine Ketones Urine Blood Urine Nitrite Urine Bilirubin Urine Urobilinogen Ur Leukocyte Esterase Urine WBC (Auto) Urine RBC (Auto) Urine Casts (Auto) U Pathogenic Cast Auto U Epithel Cells (Auto) U Sm Round Cell (Auto) Urine Bacteria (Auto) Stool Occult Blood Blood Type Antibody Screen Crossmatch 08/13/19 23:30 RBC 2.10 L MCV 101.6 H MCHC 33.5 RDW 15.5 MPV 7.4 L Neutrophils % 84.9 H Lymphocytes % 11.8 D Monocytes % 2.7 L Eosinophils % 0.1 D Basophils % 0.5 - Medications Given in the ED: ED Medications Discontinued Medications Generic Name Dose Route Start Last Admin Trade Name Josemanuel PRN Reason Stop Dose Admin Acetaminophen 1,000 mg 08/13/19 23:24 08/13/19 23:44 Ofirmev Injection - IVPB 08/13/19 23:25 1,000 mg ONCE ONE Administration Albuterol/Ipratropium 1 amp 08/13/19 23:45 08/14/19 00:48 Duoneb - NEB 08/14/19 00:16 1 amp Q15M VASHTI Administration Piperacillin Sod/Tazobactam 50 mls @ 100 mls/hr 08/13/19 23:24 08/14/19 00:27 Sod 2.25 gm/ Dextrose IVPB 08/13/19 23:53 100 mls/hr ONCE ONE Administration Protocol Sodium Chloride 1,000 ml 08/13/19 23:54 08/14/19 00:27 Normal Saline - IV 08/13/19 23:55 1,000 ml ONCE ONE Administration Vancomycin HCl 1,000 mg 08/13/19 23:24 08/14/19 00:27 Vancomycin (Pre-Docked) IVPB 08/13/19 23:25 1,000 mg ONCE ONE Administration Protocol Medical Decision Making - Medical Decision Making Patient was signed out to me by Dr. Brewster. 63-year-old female with a past medical history significant for chronic renal failure s/p renal transplant (02/2018, at [facility] w/ Dr. Sandeep Valdez), CHF, HTN, Respiratory failure s/p trach who presents to the emergency department from [facility] with hypotension and hypoxia. Per the initial team's chart, the patient had a kidney transplant at [facility]. The patient was seen at [facility] ER, diagnosed with PNA, intubated for 2 weeks without improvement then switched over to tracheostomy. The patient was in the ICU for 3 months with 1 month of stay on the floor and discharged to a nursing facility in [place] and discharged to [facility] in November of 2018. Per the initial team, the patient was accepted for transfer to [facility] (refer to initial team's note). However, due to the need for isolation precautions, they placed the transfer on hold pending a review meeting. I spoke to Dr. Millard at [facility] at approximately 7:35 am. Because of the patient's condition she needs isolation, therefore it is an undetermined ETA for patient's transfer as they are full. The patient will need to be managed in our emergency department. At approximately 7:45 am, I spoke to the ICU team regarding admission and the patient was accepted for admission The patient had a viral panel, coronavirus, and RSV ordered. Nephrology consulted (Dr. Capellan) who is aware of the patient. concerns that the patient has ARF. I spoke to Areli Cohen with overhead call out at approximately 8 am. She stated that she is not application development team lead and that one of the PA/relay worker or whomever is application development team lead will call us back at the [phone] number. After not hearing from Dr. Ward's team overhead, I called the answering service at 9:10 am. Awaiting call back 08/14/19 09:15 98/66 BP. with 95% O2. 113 BPM. 08/14/19 10:14 MAP 62. Patient increased on levophed to 0.5. Patient O2 improved back to 92%. 08/14/19 11:22 Alerted the patient has O2 in the mid 80s. Patient currently is on 100% FIO2 with 5 PEEP. Will raise PEEP to 8. Patient started on vasopressin for BP support due to MAPs in the low 60s and high 50s. Patient accepted to the ICU. Discharge - Discharge Information Problems reviewed: Yes Clinical Impression/Diagnosis: Sepsis, PNA (pneumonia), Renal transplant recipient, Anemia, Renal failure Condition: Critical - Follow up/Referral - Patient Discharge Instructions - Post Discharge Activity
[2019-08-14] MEDS ORDERED: AZITHROMYCIN IVPB 500 MG in DEXTROSE 5%-WATER - 250 ML IVPB ONE (07:44)
[2019-08-14] MEDS ORDERED: AZITHROMYCIN IVPB 500 MG/250 ML BAG IVPB ONE (09:03)
[2019-08-14] MEDS ORDERED: levETIRAcetam 500 MG/5 ML ORAL SOLUTION (UNIT-DOSE CUPS) PO ONE (09:15)
--- NOTE | 2019-08-14 09:35 | CONSULT ---
Consultation: REQUESTING PROVIDER: Dr. Esquivel CONSULT REQUEST: We have been asked to medically evaluate this patient for septic shock. HISTORY OF PRESENT ILLNESS: The patient is a 63 yo f w/ PMH chronic renal failure s/p renal transplant (02/2018, at [facility] w/ Dr. Sandeep Valdez), CHF, HTN, Respiratory failure s/p trach (2/2 PNA and extended intubation) who presents to the emergency department from [facility] with hypotension and hypoxia. The history was obtained from [place] records and from the EMR as patient unable to provide history at the time of evaluation. Per [place] records, the patient was noted to be hypoxic to the 80's and hypotensive in the NH. Labs and CXR done 1 day prior to admission were significant for an elevated WBC count and a CXR indicative of PNA. Per the patient's , the patient is verbal at baseline and intermittently on and off ventilatory support in the [place]. She is in the process of being weaned off of the trach. Patient is currently not on HD. In the Emergency department. the patient was noted to be febrile to 101.2 with w WBC count 31.9. The patient remained hypotensive after 2L NS fluid resuscitation, CVC was placed by ED staff and the patient was started on norepinephrine GTT. BP continued to drop and patient was started on vasopressin GTT. Patient received vancomycin, zosyn and azithromycin in the ED. REVIEW OF SYSTEMS: unable to obtain 2/2 clinical status PHYSICAL EXAMINATION Vital Signs - 24 hr 08/13/19 08/13/19 08/13/19 23:10 23:30 23:33 Temperature 101.2 F H Pulse Rate 105 H Pulse Rate [ 107 H Right Radial] Respiratory 30 H 29 H 31 H Rate Blood Pressure 80/52 L Blood Pressure 86/54 L [Right Arm] O2 Sat by Pulse 90 L 90 L Oximetry (%) 08/14/19 08/14/19 08/14/19 00:30 00:35 01:02 Temperature Pulse Rate Pulse Rate [ 102 H Right Radial] Respiratory 32 H 28 H Rate Blood Pressure Blood Pressure 70/52 L [Right Arm] O2 Sat by Pulse 94 L 100 Oximetry (%) 08/14/19 08/14/19 08/14/19 01:55 02:03 03:00 Temperature Pulse Rate 93 H Pulse Rate [ 93 H 95 H Right Radial] Respiratory 31 H 29 H Rate Blood Pressure 76/56 L Blood Pressure 76/56 L 81/55 L [Right Arm] O2 Sat by Pulse Oximetry (%) 08/14/19 08/14/19 08/14/19 03:48 04:16 04:20 Temperature 98.4 F Pulse Rate 91 H Pulse Rate [ 96 H Right Radial] Respiratory 27 H 32 H Rate Blood Pressure 75/52 L Blood Pressure 81/56 L [Right Arm] O2 Sat by Pulse 94 L Oximetry (%) 08/14/19 08/14/19 08/14/19 04:45 05:05 05:20 Temperature Pulse Rate 96 H 90 96 H Pulse Rate [ Right Radial] Respiratory Rate Blood Pressure 87/59 L 71/51 L 71/42 L Blood Pressure [Right Arm] O2 Sat by Pulse Oximetry (%) 08/14/19 08/14/19 06:15 08:55 Temperature Pulse Rate Pulse Rate [ 98 H Right Radial] Respiratory 32 H 34 H Rate Blood Pressure Blood Pressure 83/57 L [Right Arm] O2 Sat by Pulse 94 L Oximetry (%) GENERAL: Tracheostomy in place . Patient minimally responsive and ventilated. LUNGS: Breath sounds equal, clear to auscultation bilaterally. No wheezes, and no crackles. No accessory muscle use. HEART: Regular rate and rhythm, normal S1 and S2 without murmur, rub or gallop. ABDOMEN: Soft, nontender, not distended, normoactive bowel sounds, no guarding, no rebound, no masses. No hepatomegaly or splenomegaly. LOWER EXTREMITIES: 2+ pulses, warm, well-perfused. No calf tenderness. No peripheral edema. NEUROLOGICAL: unable to obtain as patient unable to follow commands. SKIN: sacral decubitus ulcer reported by nursing staff Laboratory Results - last 24 hr 08/13/19 08/13/19 08/13/19 23:30 23:30 23:30 WBC 31.9 H* RBC 2.10 L Hgb 7.1 L Hct 21.3 L D MCV 101.6 H MCH 34.0 H D MCHC 33.5 RDW 15.5 Plt Count 232 D MPV 7.4 L Absolute Neuts (auto) 27.1 H Total Counted 100 Neutrophils % 84.9 H Neutrophils % (Manual) 48.0 Band Neutrophils % 25.0 Lymphocytes % 11.8 D Lymphocytes % (Manual) 20.0 D Monocytes % 2.7 L Monocytes % (Manual) 5 D Eosinophils % 0.1 D Eosinophils % (Manual) 2.0 Basophils % 0.5 Nucleated RBC % 0 PT with INR 16.40 H INR 1.39 H PTT (Actin FS) 40.8 H Anticoagulation Therapy No Result Required. Puncture Site No Result Required. ABG pH 7.40 ABG pCO2 at Pt Temp 38.2 ABG pO2 at Pt Temp 98.1 ABG HCO3 23.2 ABG O2 Sat (Measured) 97.7 ABG O2 Content 4.2 ABG Base Excess -0.9 Bhupendra Test No Result Required. Carboxyhemoglobin 2.6 H Methemoglobin 3.9 H* Patient On Oxygen No Result Required. O2 Delivery Device No Result Required. Oxygen Flow Rate No Result Required. Vent Mode No Result Required. Vent Rate No Result Required. Mechanical Rate No Result Required. Pressure Support Vent No Result Required. Sodium Potassium Chloride Carbon Dioxide Anion Gap BUN Creatinine Est GFR (CKD-EPI)AfAm Est GFR (CKD-EPI)NonAf Random Glucose Lactic Acid Calcium Phosphorus Magnesium Total Bilirubin AST ALT Alkaline Phosphatase Troponin I B-Natriuretic Peptide Total Protein Albumin Urine Color Urine Appearance Urine pH Ur Specific [place] Urine Protein Urine Glucose (UA) Urine Ketones Urine Blood Urine Nitrite Urine Bilirubin Urine Urobilinogen Ur Leukocyte Esterase Urine WBC (Auto) Urine RBC (Auto) Urine Casts (Auto) U Pathogenic Cast Auto U Epithel Cells (Auto) U Sm Round Cell (Auto) Urine Bacteria (Auto) Stool Occult Blood Influenza A (Rapid) Influenza B (Rapid) Blood Type Antibody Screen Antibody Identification Crossmatch 08/13/19 08/13/19 08/14/19 23:30 23:50 00:25 WBC RBC Hgb Hct MCV MCH MCHC RDW Plt Count MPV Absolute Neuts (auto) Total Counted Neutrophils % Neutrophils % (Manual) Band Neutrophils % Lymphocytes % Lymphocytes % (Manual) Monocytes % Monocytes % (Manual) Eosinophils % Eosinophils % (Manual) Basophils % Nucleated RBC % PT with INR INR PTT (Actin FS) Anticoagulation Therapy Puncture Site ABG pH ABG pCO2 at Pt Temp ABG pO2 at Pt Temp ABG HCO3 ABG O2 Sat (Measured) ABG O2 Content ABG Base Excess Bhupendra Test Carboxyhemoglobin Methemoglobin Patient On Oxygen O2 Delivery Device Oxygen Flow Rate Vent Mode Vent Rate Mechanical Rate Pressure Support Vent Sodium 146 H Potassium 4.1 Chloride 111 H Carbon Dioxide 24 Anion Gap 11 BUN 78.9 H Creatinine 3.9 H Est GFR (CKD-EPI)AfAm 13.49 Est GFR (CKD-EPI)NonAf 11.64 Random Glucose 181 H Lactic Acid Calcium 9.7 Phosphorus 2.6 Magnesium 2.8 H Total Bilirubin 0.4 AST 25 ALT 23 Alkaline Phosphatase 76 Troponin I 0.02 B-Natriuretic Peptide 9443.0 H Total Protein 6.4 Albumin 2.0 L Urine Color Dk yellow Urine Appearance Cloudy Urine pH 5.0 Ur Specific [place] 1.020 Urine Protein 2+ H Urine Glucose (UA) Negative Urine Ketones Trace H Urine Blood Negative Urine Nitrite Negative Urine Bilirubin 1+ H Urine Urobilinogen 0.2 Ur Leukocyte Esterase Trace Urine WBC (Auto) 66 Urine RBC (Auto) 11.9 Urine Casts (Auto) 5 U Pathogenic Cast Auto None seen U Epithel Cells (Auto) 33 U Sm Round Cell (Auto) None seen Urine Bacteria (Auto) 5 Stool Occult Blood Influenza A (Rapid) Negative Influenza B (Rapid) Negative Blood Type Antibody Screen Antibody Identification Crossmatch 08/14/19 08/14/19 08/14/19 00:28 00:33 00:42 WBC RBC Hgb Hct MCV MCH MCHC RDW Plt Count MPV Absolute Neuts (auto) Total Counted Neutrophils % Neutrophils % (Manual) Band Neutrophils % Lymphocytes % Lymphocytes % (Manual) Monocytes % Monocytes % (Manual) Eosinophils % Eosinophils % (Manual) Basophils % Nucleated RBC % PT with INR INR PTT (Actin FS) Anticoagulation Therapy Puncture Site ABG pH ABG pCO2 at Pt Temp ABG pO2 at Pt Temp ABG HCO3 ABG O2 Sat (Measured) ABG O2 Content ABG Base Excess Bhupendra Test Carboxyhemoglobin Methemoglobin Patient On Oxygen O2 Delivery Device Oxygen Flow Rate Vent Mode Vent Rate Mechanical Rate Pressure Support Vent Sodium Potassium Chloride Carbon Dioxide Anion Gap BUN Creatinine Est GFR (CKD-EPI)AfAm Est GFR (CKD-EPI)NonAf Random Glucose Lactic Acid 2.3 H* Calcium Phosphorus Magnesium Total Bilirubin AST ALT Alkaline Phosphatase Troponin I B-Natriuretic Peptide Total Protein Albumin Urine Color Urine Appearance Urine pH Ur Specific [place] Urine Protein Urine Glucose (UA) Urine Ketones Urine Blood Urine Nitrite Urine Bilirubin Urine Urobilinogen Ur Leukocyte Esterase Urine WBC (Auto) Urine RBC (Auto) Urine Casts (Auto) U Pathogenic Cast Auto U Epithel Cells (Auto) U Sm Round Cell (Auto) Urine Bacteria (Auto) Stool Occult Blood Negative Influenza A (Rapid) Influenza B (Rapid) Blood Type B POSITIVE Antibody Screen Positive Antibody Identification Anti-E Crossmatch See Detail 08/14/19 05:00 WBC RBC Hgb Hct MCV MCH MCHC RDW Plt Count MPV Absolute Neuts (auto) Total Counted Neutrophils % Neutrophils % (Manual) Band Neutrophils % Lymphocytes % Lymphocytes % (Manual) Monocytes % Monocytes % (Manual) Eosinophils % Eosinophils % (Manual) Basophils % Nucleated RBC % PT with INR INR PTT (Actin FS) Anticoagulation Therapy Puncture Site ABG pH ABG pCO2 at Pt Temp ABG pO2 at Pt Temp ABG HCO3 ABG O2 Sat (Measured) ABG O2 Content ABG Base Excess Bhupendra Test Carboxyhemoglobin Methemoglobin Patient On Oxygen O2 Delivery Device Oxygen Flow Rate Vent Mode Vent Rate Mechanical Rate Pressure Support Vent Sodium Potassium Chloride Carbon Dioxide Anion Gap BUN Creatinine Est GFR (CKD-EPI)AfAm Est GFR (CKD-EPI)NonAf Random Glucose Lactic Acid 1.5 Calcium Phosphorus Magnesium Total Bilirubin AST ALT Alkaline Phosphatase Troponin I B-Natriuretic Peptide Total Protein Albumin Urine Color Urine Appearance Urine pH Ur Specific [place] Urine Protein Urine Glucose (UA) Urine Ketones Urine Blood Urine Nitrite Urine Bilirubin Urine Urobilinogen Ur Leukocyte Esterase Urine WBC (Auto) Urine RBC (Auto) Urine Casts (Auto) U Pathogenic Cast Auto U Epithel Cells (Auto) U Sm Round Cell (Auto) Urine Bacteria (Auto) Stool Occult Blood Influenza A (Rapid) Influenza B (Rapid) Blood Type Antibody Screen Antibody Identification Crossmatch Active Medications Generic Name Dose Route Start Last Admin Trade Name Freq PRN Reason Stop Dose Admin Norepinephrine Bitartrate 8, 500 mls @ 4.491 mls/hr 08/14/19 01:00 08/14/19 05:20 000 mcg/ Dextrose IV 0.25 mcg/kg/min ASDIR VASHTI 37.421 mls/hr Titration Protocol 0.03 MCG/KG/MIN Sodium Chloride 1,000 mls @ 42 mls/hr 08/14/19 05:30 08/14/19 05:25 Normal Saline - IV 42 mls/hr ASDIR VASHTI Administration ASSESSMENT/PLAN: The patient is a 63 yo f w/ PMH chronic renal failure s/p renal transplant (02/2018, at [facility] w/ Dr. Sandeep Valdez), CHF, HTN, Respiratory failure s/p trach (2/2 PNA and extended intubation) who presents to the emerg ency department from [facility] with hypotension and hypoxia. #Neuro -patient minimally responsive off sedation -will hold sedation while patient solmnent. #Pulmonary -tracheostomy in place -patient desaturating in NH -outpatient CXR with possible infiltrate -CXR on admission with similar results #Cardio -hypotensive in ED despite 2L NS resuscitation -on Levo, Vaso for pressure support. -solu-cortef 50mg QID #Renal -s/p kidney transplant -patient off immunomodulators at home -monitor creatinine -nephrology onboard #ID -s/p vancomycin, zosyn, azithromycin in the ED -will c/w zosyn for now -ID consulted Dispo: -Admit ICU Visit type - Emergency Visit Emergency Visit: Yes ED Registration Date: 08/14/19 Care time: The patient presented to the Emergency Department on the above date and was hospitalized for further evaluation of their emergent condition. - New Patient This patient is new to me today: Yes Date on this admission: 08/14/19 - Critical Care Critical Care patient: Yes Total Critical Care Time (in minutes): 60 Critical Care Statement: The care of this patient involved high complexity decision making to prevent further life threatening deterioration of the patient's condition and/or to evaluate & treat vital organ system(s) failure or risk of failure. ATTENDING PHYSICIAN STATEMENT I saw and evaluated the patient. I reviewed the resident's note and discussed the case with the resident. I agree with the resident's findings and plan as documented. SUBJECTIVE: OBJECTIVE: ASSESSMENT AND PLAN:
[2019-08-14] MEDS ORDERED: ACETAMINOPHEN 1000 MG/100 ML VIAL (NON FORMULARY) IVPB ONE (09:37)
[2019-08-14] MEDS ORDERED: ACETAMINOPHEN INJECTION 100 ML IVPB ONE (09:38)
[2019-08-14] MEDS ORDERED: VASOPRESSIN 20 UNITS/ML VIAL IV ONE (10:33)
[2019-08-14] MEDS: VASOPRESSIN 50 UNITS in SODIUM CHLORIDE 97.5 ML IVPB SCH (10:41)
--- NOTE | 2019-08-14 10:46 | EKG ---
Test Reason : Blood Pressure : / mmHG Vent. Rate : 106 BPM Atrial Rate : 106 BPM P-R Int : 152 ms QRS Dur : 086 ms QT Int : 336 ms P-R-T Axes : 057 101 057 degrees QTc Int : 446 ms SINUS TACHYCARDIA POSSIBLE LEFT ATRIAL ENLARGEMENT RIGHTWARD AXIS WHEN COMPARED WITH ECG OF 30-DEC-2018 20:22, ST NO LONGER DEPRESSED IN LATERAL LEADS T WAVE INVERSION NOW EVIDENT IN ANTERIOR LEADS Confirmed by NEY CANDELARIO MD ([id number]) on 08/14/2019 10:45:42 AM Referred By: Confirmed By:NEY CANDELARIO MD
[2019-08-14] MEDS ORDERED: HYDROCORTISONE SOD SUCCINATE 2 ML ONE (13:01)
[2019-08-14] MEDS: HYDROCORTISONE SOD SUCCINATE 100 MG/2 ML VIAL IVPB SCH ×3 (13:04→22:08)
[2019-08-14] MEDS ORDERED: NOREPINEPHRINE BITARTRATE 4 MG/4 ML ML IV ONE ×2 (14:04→22:52)
--- NOTE | 2019-08-14 14:50 | HP ---
Admitting History and Physical - Primary Care Physician PCP: Manas Michael - Admission Chief Complaint: hypotension and fevers History of Present Illness: 63 year old female with PMH ESRD s/p renal transplant, left AVF (was on dialysis in the past), anemia (requiring frequent blood tranfusions and darbepoetin), htn, chf, trach/peg presents to the ED from [facility] for hypotension, tachycardia, fevers. she is unable to provide history. Transplant MD- Dr. Valdez at [facility] History Source: Patient, Significant Other, Medical Record Limitations to Obtaining History: Physical Impairment - Past Medical History Cardiovascular: Yes: CHF, HTN Renal/: Yes: Renal Failure, Other (transplant) Heme/Onc: Yes: Anemia Psych: Yes: Depression - Past Surgical History Past Surgical History: Yes: AV Fistula/Graft Additional Past Surgical History: trach, peg - Smoking History Smoking history: Unknown if ever smoked - Alcohol/Substance Use Hx Alcohol Use: No - Social History Usual Living Arrangement: Yes: Residential Home Medications - Allergies Allergies/Adverse Reactions: Allergies Allergy/AdvReac Type Severity Reaction Status Date / Time perry Allergy Verified 08/14/19 00:45 peach Allergy Verified 08/14/19 00:45 prunes Allergy Verified 08/14/19 00:45 - Home Medications Home Medications: Ambulatory Orders Tacrolimus [Prograf] 5 mg GT BID 12/02/18 Vitamins A and D [Vitamin A and D] 113.4 gm TP BID 12/02/18 levETIRAcetam [Keppra Oral Solution -] 750 mg GT DAILY 12/02/18 Aa/Hydrolyzed Collagen, Whey [Lps 15-30 Liquid] 30 ml PO DAILY 12/30/18 Cholecalciferol (Vitamin D3) [Vitamin D3 -] 800 unit GT BID 12/30/18 Darbepoetin Mervin [Aranesp] 40 mcg IM WEEKLY 12/30/18 Fluconazole [Diflucan 40Mg/ml Suspension -] 5 ml GT TID 12/30/18 Heparin - 5,000 unit SQ BID 12/30/18 Lidocaine 5% Patch [Lidoderm Patch -] 1 patch TP DAILY 12/30/18 Metoprolol Tartrate 25 mg PO BID 12/30/18 Tramadol HCl [Ultram] 50 mg GT Q6H PRN 12/30/18 Family Medical History Family History: Unable to Obtain Review of Systems Unable to obtain ROS, reason: nonverbal Physical Examination Vital Signs: Vital Signs Temperature 98.4 F 08/14/19 04:20 Pulse Rate 97 H 08/14/19 11:56 Respiratory Rate 23 H 08/14/19 12:48 Blood Pressure 87/61 L 08/14/19 11:56 O2 Sat by Pulse Oximetry (%) 98 08/14/19 12:02 Constitutional: Yes: Other (nonverbal, doesnt follow commands) HENT: Yes: Atraumatic, Normocephalic Neck: Yes: Other (trach) Cardiovascular: Yes: Tachycardia Respiratory: Yes: Diminished, Mechanically Ventilated, Other (trach) Gastrointestinal: Yes: Normal Bowel Sounds, Other (peg) Renal/: Yes: Christy Present Musculoskeletal: Yes: Other Extremities: Yes: Other Edema: LUE: 1+ Integumentary: Yes: Pressure Ulcer (sacrum) Neurological: Yes: Lethargy Psychiatric: Yes: Other Labs: CBC, BMP 08/13/19 23:30 08/13/19 23:30 Problem List - Problems (1) Septic shock Assessment/Plan: ID consult blood cultures ordered at 1230 urine culture pending IV antbx IVF resus c.diff neg Accepted for transfer to [facility] ICU- consumer recruiter Dr. Georges Code(s): A41.9 - SEPSIS, UNSPECIFIED ORGANISM; R65.21 - SEVERE SEPSIS WITH SEPTIC SHOCK (2) Anemia Assessment/Plan: recheck labs receives procit as outpatient unknown last dose Code(s): D64.9 - ANEMIA, UNSPECIFIED (3) PNA (pneumonia) Assessment/Plan: Pulm eval IV antbx chest xray noted ct chest noted Code(s): J18.9 - PNEUMONIA, UNSPECIFIED ORGANISM (4) Renal failure Assessment/Plan: nephrology eval renal transplant patient ARF left avf Code(s): N19 - UNSPECIFIED KIDNEY FAILURE (5) Renal transplant recipient Assessment/Plan: transplant physician Dr. Valdez at [facility] Code(s): Z94.0 - KIDNEY TRANSPLANT STATUS (6) Chronic respiratory failure with hypoxia and hypercapnia Assessment/Plan: pulm eval mechanically ventilated cont vent settings per ICU Code(s): J96.11 - CHRONIC RESPIRATORY FAILURE WITH HYPOXIA; J96.12 - CHRONIC RESPIRATORY FAILURE WITH HYPERCAPNIA (7) HTN (hypertension) Assessment/Plan: hold home metoprolol tartrate BP support per ICU Code(s): I10 - ESSENTIAL (PRIMARY) HYPERTENSION (8) CHF (congestive heart failure) Code(s): I50.9 - HEART FAILURE, UNSPECIFIED Qualifiers: Heart failure chronicity: chronic (9) Seizure disorder Assessment/Plan: cont cedric Code(s): G40.909 - EPILEPSY, UNSP, NOT INTRACTABLE, WITHOUT STATUS EPILEPTICUS
[2019-08-14 15:29] LABS: BASO % 0.1 % (0-2.0); EOS % 1.5 % (0-4.5); HEMATOCRIT 19.3 % (32.4-45.2); LYMPH % 9.8 % (8-40); MCH 32.7 pg (25.7-33.7); MCHC 31.9 g/dl (32.0-36.0); MEAN CELL VOLUME 102.4 fl (80-96); MEAN PLT VOLUME 7.9 fl (7.5-11.1); MONO % 3.1 % (3.8-10.2); NEUT % 85.5 % (42.8-82.8); PLATELET COUNT 221 K/MM3 (134-434); RBC 1.89 M/mm3 (3.60-5.2); RDW 16.4 % (11.6-15.6); WHITE BLOOD COUNT 21.8 K/mm3 (4.0-10.0)
[2019-08-14] MEDS ORDERED: PIPERACILLIN/TAZOB 2.25 GM 2.25 GM in DEXTROSE 5%-WATER - 50 ML IVPB SCH (15:30)
[2019-08-14 15:34] LABS: HEMOGLOBIN 6.2 GM/dL (10.7-15.3)
[2019-08-14] MEDS ORDERED: PIPERACILLIN/TAZOBACTAM 2.25 GM VIAL IVPB ONE (15:36)
[2019-08-14] MEDS ORDERED: DEXTROSE 5%-WATER - 50 ML IVPB ONE (15:36)
[2019-08-14 15:40] LABS: INR 1.27 (0.83-1.09)
--- NOTE | 2019-08-14 16:47 | PN ---
Progress Note (short form) - Note Progress Note: ID CONSULT DICTATED SEPSIS/SEPTIC SHOCK RESP FAILURE/PNEUMONIA RENAL FAILURE S/P RENAL TRANSPLANT NOT ON IMMUNOSUPPRESSIVE MEDS R/O COVID-19 AWAIT SEPSIS WORKUP VENTILATORY/ HEMODYNAMIC SUPPORT EMPIRIC VANCO/ ZOSYN/ ZITHROMAX AIRBORNE ISOLATION CRITICAL CARE TIME 35MIN
[2019-08-14 16:52] LABS: ANISOCYTOSIS 1+; MACROCYTOSIS 1+
[2019-08-14 16:54] LABS: PLATELET ESTIMATE ADEQUATE
[2019-08-14 17:06] LABS: ALBUMIN 1.7 g/dl (3.4-5.0); BILIRUBIN,TOTAL 0.4 mg/dL (0.2-1); BLOOD UREA NITROGEN 76.5 mg/dL (7-18); CALCIUM 9.1 mg/dL (8.5-10.1); CREATININE 3.8 mg/dL (0.55-1.3); MAGNESIUM 2.5 mg/dL (1.8-2.4); PHOSPHOROUS 3.3 mg/dL (2.5-4.9); TOT PROT 5.8 g/dl (6.4-8.2)
[2019-08-14] MEDS ORDERED: VANCOMYCIN 1 GRAM (PRE-DOCKED) 1,000 MG/250 ML BAG IVPB ONE (17:15)
[2019-08-14] MEDS: PIPERACILLIN/TAZOB 2.25 GM 2.25 GM in DEXTROSE 5%-WATER - 50 ML IVPB SCH (18:03)
--- NOTE | 2019-08-14 18:52 | CONSULT ---
Consult Consult Specialty:: Nephroogy Reason for Consultation:: GORDON - History of Present Illness Chief Complaint: sent in for fevers and hypotension History of Present Illness: Pt is a 63 year old female with pmhx of ckd, kidney transplant, chf, htn, chron ic resp failure with trache and peg who was sent in for fever and hypotension. She was found to be in acute renal failure and I was called to evaluate her. She is being tested for possible covid19. She was also noted to be hypoxic. She is unable to give history. I spoke to her transplant fruit dryer Dr Escobar. Pt is off of tacrolimus and cellcept, she is on prednisone 10 mg daily. SHe had histor y of resp failure and sepsis. Pt was hypotensive in the ER. She required several liters of saline and was started on pressors. - History Source History Provided By: Medical Record - Past Medical History Cardio/Vascular: Yes: CHF, HTN Renal/: Yes: Renal Failure, Other (transplant) Psych: Yes: Depression - Past Surgical History Past Surgical History: Yes: AV Fistula/Graft - Alcohol/Substance Use Hx Alcohol Use: No - Smoking History Smoking history: Unknown if ever smoked Home Medications - Allergies Allergies/Adverse Reactions: Allergies Allergy/AdvReac Type Severity Reaction Status Date / Time perry Allergy Verified 08/14/19 00:45 peach Allergy Verified 08/14/19 00:45 prunes Allergy Verified 08/14/19 00:45 - Home Medications Home Medications: Ambulatory Orders Tacrolimus [Prograf] 5 mg GT BID 12/02/18 Vitamins A and D [Vitamin A and D] 113.4 gm TP BID 12/02/18 levETIRAcetam [Keppra Oral Solution -] 750 mg GT DAILY 12/02/18 Aa/Hydrolyzed Collagen, Whey [Lps 15-30 Liquid] 30 ml PO DAILY 12/30/18 Cholecalciferol (Vitamin D3) [Vitamin D3 -] 800 unit GT BID 12/30/18 Darbepoetin Mervin [Aranesp] 40 mcg IM WEEKLY 12/30/18 Fluconazole [Diflucan 40Mg/ml Suspension -] 5 ml GT TID 12/30/18 Heparin - 5,000 unit SQ BID 12/30/18 Lidocaine 5% Patch [Lidoderm Patch -] 1 patch TP DAILY 12/30/18 Metoprolol Tartrate 25 mg PO BID 12/30/18 Tramadol HCl [Ultram] 50 mg GT Q6H PRN 12/30/18 Family Medical History Family History: Unable to Obtain Review of Systems Unable to obtain ROS, reason: lethargy Physical Exam Vital Signs: Vital Signs Temperature 98.5 F 08/14/19 14:00 Pulse Rate 77 08/14/19 18:00 Respiratory Rate 28 H 08/14/19 16:02 Blood Pressure 90/60 08/14/19 18:00 O2 Sat by Pulse Oximetry (%) 100 08/14/19 14:00 Neck: Yes: Other (trache) Cardiovascular: Yes: Tachycardia, S1, S2 Respiratory: Yes: Mechanically Ventilated Gastrointestinal: Yes: Other (peg) Renal/: Yes: Christy Present, Other (kidney transplant) Musculoskeletal: Yes: Muscle Weakness Edema: LLE: Trace, RLE: Trace Neurological: Yes: Lethargy Labs: CBC, BMP 08/14/19 14:30 08/14/19 14:07 Imaging - Results Chest X-ray: Report Reviewed Problem List - Problems (1) CHF (congestive heart failure) Code(s): I50.9 - HEART FAILURE, UNSPECIFIED Qualifiers: Heart failure chronicity: chronic (2) Renal failure Code(s): N19 - UNSPECIFIED KIDNEY FAILURE (3) Renal transplant recipient Code(s): Z94.0 - KIDNEY TRANSPLANT STATUS Assessment/Plan Current Medications Generic Name Dose Route Start Last Admin Trade Name Freq PRN Reason Stop Dose Admin Chlorhexidine Gluconate 1 applic 08/14/19 22:00 Hibiclens For Decolonization - TP HS VASHTI Hydrocortisone Sodium Succinate 50 mg 08/14/19 14:00 08/14/19 18:03 Solu-Cortef - IVPB 50 mg QID VASHTI Administration Norepinephrine Bitartrate 8, 500 mls @ 4.491 mls/hr 08/14/19 01:00 08/14/19 18:00 000 mcg/ Dextrose IV 0.75 mcg/kg/min ASDIR VASHTI 112.264 mls/hr Titration Protocol 0.03 MCG/KG/MIN Vasopressin 50 units/ Sodium 100 mls @ 4 mls/hr 08/14/19 10:15 08/14/19 10:41 Chloride IVPB 2 units/hr ASDIR VASHTI 4 mls/hr Administration Protocol 2 UNITS/HR Sodium Chloride 1,000 mls @ 50 mls/hr 08/14/19 16:16 08/14/19 18:05 Normal Saline - IV 50 mls/hr ASDIR VASHTI Administration Piperacillin Sod/Tazobactam 50 mls @ 100 mls/hr 08/14/19 18:00 08/14/19 18:03 Sod 2.25 gm/ Dextrose IVPB Not Given Q8H-IV VASHTI Protocol Azithromycin 500 mg in 250 mls @ 250 mls/hr 08/15/19 10:00 Zithromax 500mg Ivpb (Pre-Docked) IVPB DAILY VASHTI Levetiracetam 750 mg 08/15/19 10:00 Keppra Oral Solution - GT DAILY [facility] Mupirocin 1 applic 08/14/19 22:00 Bactroban Ointment (For Decolonization) - NS 08/19/19 21:59 BID VASHTI Impression 1. GORDON 2. kidney transplant - maintained with prednisone 10 mg daily 3. chronic resp failure with trache 4. peg tube 5. r/o covid19 6. sepsis 7. anemia 8. hypotension 9. shock 10. lactic acidosis 11. CKD Plan - cont pressors - vent support - trend ct values - follow cultures - follow covid19 results - discussed with ER - discussed with ICU team - resume steroids
[2019-08-14] MEDS ORDERED: TACROLIMUS ANHYDROUS 5 MG CAPSULE GT SCH (22:00)
[2019-08-14] MEDS: MUPIROCIN 2% TOPICAL OINTMENT FOR DECOLONIZATION NS SCH (22:08)
[2019-08-14] MEDS: CHLORHEXIDINE GLUCONATE 4% CLEANSER FOR DECOLONIZATION TP SCH (22:08)
[2019-08-15] MEDS: NOREPINEPHRINE BITARTRATE 8,000 MCG in DEXTROSE 5%-WATER - 492 ML IV SCH (01:18)
[2019-08-15] MEDS ORDERED: PIPERACILLIN/TAZOBACTAM 2.25 GM VIAL IVPB ONE ×3 (01:44→17:36)
[2019-08-15] MEDS ORDERED: DEXTROSE 5%-WATER - 50 ML IVPB ONE ×3 (01:44→17:36)
[2019-08-15] MEDS: PIPERACILLIN/TAZOB 2.25 GM 2.25 GM in DEXTROSE 5%-WATER - 50 ML IVPB SCH ×3 (02:26→17:36)
[2019-08-15 02:47] LABS: HEMOGLOBIN 10.4 GM/dL (10.7-15.3); WHITE BLOOD COUNT 27.3 K/mm3 (4.0-10.0)
[2019-08-15 02:48] LABS: HEMATOCRIT 31.2 % (32.4-45.2); MCH 31.4 pg (25.7-33.7); MCHC 33.2 g/dl (32.0-36.0); MEAN CELL VOLUME 94.7 fl (80-96); MEAN PLT VOLUME 7.8 fl (7.5-11.1); PLATELET COUNT 205 K/MM3 (134-434); RDW 18.1 % (11.6-15.6)
[2019-08-15 06:55] LABS: BASO % 0.3 % (0-2.0); EOS % 1.4 % (0-4.5); HEMATOCRIT 29.5 % (32.4-45.2); LYMPH % 5.2 % (8-40); MCH 31.3 pg (25.7-33.7); MCHC 33.9 g/dl (32.0-36.0); MEAN CELL VOLUME 92.4 fl (80-96); MEAN PLT VOLUME 7.7 fl (7.5-11.1); NEUT % 91.1 % (42.8-82.8); PLATELET COUNT 203 K/MM3 (134-434); RBC 3.19 M/mm3 (3.60-5.2); RDW 18.1 % (11.6-15.6); WHITE BLOOD COUNT 27.3 K/mm3 (4.0-10.0)
[2019-08-15 07:21] LABS: ALBUMIN 1.8 g/dl (3.4-5.0); BILIRUBIN,TOTAL 0.6 mg/dL (0.2-1); BLOOD UREA NITROGEN 73.2 mg/dL (7-18); CALCIUM 8.1 mg/dL (8.5-10.1); CREATININE 3.3 mg/dL (0.55-1.3); POTASSIUM 4.2 mmol/L (3.5-5.1); TOT PROT 6.2 g/dl (6.4-8.2)
[2019-08-15] MEDS ORDERED: PT OWN MED DRAWER 7, Y5N ONE (08:28)
[2019-08-15] MEDS: SODIUM CHLORIDE 1,000 ML IV SCH (09:30)
[2019-08-15] MEDS: HYDROCORTISONE SOD SUCCINATE 100 MG/2 ML VIAL IVPB SCH ×4 (09:44→21:43)
[2019-08-15] MEDS: levETIRAcetam 500 MG/5 ML ORAL SOLUTION (UNIT-DOSE CUPS) GT SCH (09:44)
[2019-08-15] MEDS: PANTOPRAZOLE SODIUM 40 MG VIAL IVPUSH SCH (09:44)
[2019-08-15] MEDS: AZITHROMYCIN IVPB 500 MG/250 ML BAG IVPB SCH (09:45)
[2019-08-15] MEDS: MUPIROCIN 2% TOPICAL OINTMENT FOR DECOLONIZATION NS SCH ×2 (09:45→21:43)
[2019-08-15] MEDS: VASOPRESSIN 50 UNITS in SODIUM CHLORIDE 97.5 ML IVPB SCH (10:15)
--- NOTE | 2019-08-15 10:54 | PN ---
Progress Note (short form) - Note Progress Note: PULMONARY/CCM Pt seen and examined in the ICU. Vented, poorly responsive. On low dose levophed and vasopressin gtts. Thick yellow secretions per nursing. Vital Signs Period Temp Pulse Resp BP Sys/Huff Pulse Ox Last 24 Hr 97.2 F-98.5 F 77-97 21-29 78-128/56-82 95-100 Intake & Output 08/12/19 08/13/19 08/14/19 08/15/19 23:59 23:59 23:59 23:59 Intake Total 1330 2274 Output Total 170 200 Balance 1160 2074 Weight 39.916 kg 43.5 kg 45.3 kg Gen: vented, poorly responsive, tachypneic Heart: RRR Lung: scattered rhonchi Abd: soft, nontender Ext: no edema CBC, BMP 08/15/19 06:02 08/15/19 06:02 Active Medications Chlorhexidine Gluconate (Hibiclens For Decolonization -) 1 applic TP HS [facility] Last Admin: 08/14/19 22:08 Dose: 1 applic Documented by: Hydrocortisone Sodium Succinate (Solu-Cortef -) 50 mg IVPB QID [facility] Last Admin: 08/15/19 09:44 Dose: 50 mg Documented by: Norepinephrine Bitartrate 8, (000 mcg/ Dextrose) 500 mls @ 4.491 mls/hr IV ASDIR [facility]; Protocol Last Titration: 08/15/19 06:09 Dose: 0.5 mcg/kg/min, 75 mls/hr Documented by: Sodium Chloride (Normal Saline -) 1,000 mls @ 50 mls/hr IV ASDIR [facility] Last Admin: 08/14/19 18:05 Dose: 50 mls/hr Documented by: Piperacillin Sod/Tazobactam (Sod 2.25 gm/ Dextrose) 50 mls @ 100 mls/hr IVPB Q8H-IV [facility]; Protocol Last Admin: 08/15/19 09:45 Dose: 100 mls/hr Documented by: Azithromycin (Zithromax 500mg Ivpb (Pre-Docked)) 500 mg in 250 mls @ 250 mls/hr IVPB DAILY [facility] Last Admin: 08/15/19 09:45 Dose: 250 mls/hr Documented by: Levetiracetam (Keppra Oral Solution -) 750 mg GT DAILY [facility] [place] Last Admin: 08/15/19 09:44 Dose: 750 mg Documented by: Mupirocin (Bactroban Ointment (For Decolonization) -) 1 applic NS BID [facility] Stop: 08/19/19 21:59 Last Admin: 08/15/19 09:45 Dose: 1 applic Documented by: Pantoprazole Sodium (Protonix Iv) 40 mg IVPUSH DAILY [facility] Last Admin: 08/15/19 09:44 Dose: 40 mg Documented by: A/P Acute on Chronic Hypoxic Respiratory Failure Pneumonia Septic Shock Acute on Chronic Renal Failure h/o Renal Transplant Lactic Acidosis CHF HTN Anemia - continue antibiotics - f/u cultures, serologies - IVF boluses - transfused PRBC - taper pressors to maintain MAP >65 - monitor urine output, creatinine - O2 to keep SpO2 >90% - stress dose steroids - continue assist control for now - DVT/GI prophylaxis - continue ICU monitoring for hemodynamic instability critical care time spent in reviewing chart, evaluating patient and formulating plan 35 min
[2019-08-15 12:05] LABS: ANISOCYTOSIS 0; MACROCYTOSIS 0; PLATELET ESTIMATE NORMAL
--- NOTE | 2019-08-15 13:36 | PN ---
Progress Note, Physician Chief Complaint: Acute on Chronic Hypoxic Respiratory Failure Pneumonia Septic Shock Acute on Chronic Renal Failure h/o Renal Transplant Lactic Acidosis CHF HTN Anemia History of Present Illness: Mechanically vented and sedated Awaiting COVID serology - Current Medication List Current Medications: Active Medications Chlorhexidine Gluconate (Hibiclens For Decolonization -) 1 applic TP HS [facility] Last Admin: 08/14/19 22:08 Dose: 1 applic Documented by: Hydrocortisone Sodium Succinate (Solu-Cortef -) 50 mg IVPB QID [facility] Last Admin: 08/15/19 09:44 Dose: 50 mg Documented by: Norepinephrine Bitartrate 8, (000 mcg/ Dextrose) 500 mls @ 4.491 mls/hr IV ASDIR [facility]; Protocol Last Titration: 08/15/19 06:09 Dose: 0.5 mcg/kg/min, 75 mls/hr Documented by: Piperacillin Sod/Tazobactam (Sod 2.25 gm/ Dextrose) 50 mls @ 100 mls/hr IVPB Q8H-IV [facility]; Protocol Last Admin: 08/15/19 09:45 Dose: 100 mls/hr Documented by: Azithromycin (Zithromax 500mg Ivpb (Pre-Docked)) 500 mg in 250 mls @ 250 mls/hr IVPB DAILY [facility] Last Admin: 08/15/19 09:45 Dose: 250 mls/hr Documented by: Sodium Chloride (Normal Saline -) 1,000 mls @ 100 mls/hr IV [facility] Last Admin: 08/15/19 09:30 Dose: 100 mls/hr Documented by: Levetiracetam (Keppra Oral Solution -) 750 mg GT DAILY [facility] Last Admin: 08/15/19 09:44 Dose: 750 mg Documented by: Mupirocin (Bactroban Ointment (For Decolonization) -) 1 applic NS BID [facility] Stop: 08/19/19 21:59 Last Admin: 08/15/19 09:45 Dose: 1 applic Documented by: Pantoprazole Sodium (Protonix Iv) 40 mg IVPUSH DAILY [facility] Last Admin: 08/15/19 09:44 Dose: 40 mg Documented by: - Objective Vital Signs: Vital Signs Temperature 97.8 F 08/15/19 10:00 Pulse Rate 84 08/15/19 10:00 Respiratory Rate 19 08/15/19 12:41 Blood Pressure 106/73 08/15/19 10:00 O2 Sat by Pulse Oximetry (%) 95 08/15/19 10:00 Constitutional: Yes: No Distress, Calm, Cachectic Cardiovascular: Yes: Regular Rate and Rhythm Respiratory: Yes: Mechanically Ventilated, Tachypnea Gastrointestinal: Yes: Normal Bowel Sounds, Soft Genitourinary: Yes: Christy Present Edema: No Peripheral Pulses WNL: Yes Neurological: Yes: Other (sedated) Labs: CBC, BMP 08/15/19 06:02 08/15/19 06:02 INR, PTT INR 1.27 (0.83-1.09) H 08/14/19 14:30 Problem List - Problems (1) Anemia Assessment/Plan: -multifactorial -Iron profile+ B12 normal -TSH Low-sick thyroid syndrome? -Stool OB negative -Received multiple transfusions this admission -Monitor trend -Hold any AC Problems reviewed: Yes Code(s): D64.9 - ANEMIA, UNSPECIFIED (2) Chronic respiratory failure with hypoxia and hypercapnia Assessment/Plan: -On mechanical vent -Pulmonary on board -Bronchodilators -Rapid influenza negative -Viral serology pending including COVID Problems reviewed: Yes Code(s): J96.11 - CHRONIC RESPIRATORY FAILURE WITH HYPOXIA; J96.12 - CHRONIC RESPIRATORY FAILURE WITH HYPERCAPNIA (3) Renal failure Problems reviewed: Yes Code(s): N19 - UNSPECIFIED KIDNEY FAILURE (4) Renal transplant recipient Assessment/Plan: -On Prednisone prior to admission -On Solucortef inpatient-continue -Nephrology on board Problems reviewed: Yes Code(s): Z94.0 - KIDNEY TRANSPLANT STATUS (5) Sepsis Assessment/Plan: -Lactic acidosis resolved -Still on pressors -IV abx -IVF -ID on board -Cultures: Microbiology 08/14/19 14:50 Blood - Central Line Blood Culture - Preliminary Pending Organism 08/14/19 19:03 Sputum - Endotrachea Suction/Ventilator Gram Stain - Final 08/14/19 19:03 Sputum - Endotrachea Suction/Ventilator Sputum Culture - Preliminary Presumptive Mrsa (Pbp2a Pos) Non Lactose Fermenting Gnb 08/14/19 14:30 Blood - Central Line Blood Culture - Preliminary Presumptive Mrsa (Pbp2a Pos) 08/14/19 00:25 Urine - Urine - Catheterized Urine Culture - Final NO GROWTH OBTAINED 08/14/19 14:50 Urine - Urine Christy Legionella Antigen - Final 08/14/19 14:50 Urine - Urine Christy Streptococcus pneumoniae Antigen (M - Final 08/14/19 00:25 Stool Clostridioides difficile Antigen - Final 08/14/19 00:25 Stool Clostridioides difficile Toxin Assay - Final -Afebrile Problems reviewed: Yes Code(s): A41.9 - SEPSIS, UNSPECIFIED ORGANISM Assessment/Plan See problem list
--- NOTE | 2019-08-15 14:57 | CONS ---
INFECTIOUS DISEASE CONSULTATION DATE OF CONSULTATION: 08/14/2019 HISTORY OF PRESENT ILLNESS: The patient is a 63-year-old female with history of renal transplant, evaluated for septic shock. The patient was admitted to the hospital on August 13, 2019, with fever, hypotension, and tachycardia. She was evaluated in the emergency room, where chest x-ray showed bilateral congestive changes right greater than left. Cultures were obtained. She was empirically treated with vancomycin and Zosyn. Her course was notable for a markedly elevated white blood cell count 31,000 and fever. There was also concern about possible Covid-19 virus. She was placed on precautions and the appropriate swab was obtained. At the present time, she is sedated on the ventilator, tachypneic. The patient has a complicated past medical history. She is status post renal transplant in February [address] [facility]. Her post-transplant course was complicated by development of acute respiratory failure and pneumonia. She ultimately required a tracheostomy and a feeding gastrostomy. Her course was further complicated by pulmonary aspergillosis. She was transferred from the hospital to a LTAC and recently was transferred to a local detention facility. She is on the ventilator. She is sedated. She is unable to offer any additional details. No reports of any recent febrile illness or ill contacts, recent antibiotic therapy. No travel. PAST MEDICAL HISTORY: Positive for chronic renal disease, status post renal transplant. She is not on anti-rejection medications, for reasons which are not clear at this time. Past medical history also included chronic respiratory failure, status post tracheostomy, hypertension, congestive heart failure, aspergillosis. PAST SURGICAL HISTORY: Status post tracheostomy and feeding gastrostomy. ALLERGIES: No known allergies. MEDICATIONS: According to the records included Prograf, Keppra, Aranesp, fluconazole, metoprolol, Ultram. SOCIAL HISTORY: Resides in a detention facility. Dependent in activities of daily living. SYSTEMS REVIEW: Neurologic: No loss of consciousness, seizure activity, focal weakness. Cardiac: Negative chest pain or palpitations. Respiratory: Positive for chronic respiratory failure. Gastrointestinal: Positive feeding gastrostomy. Genitourinary: Chronic renal failure, status post renal transplant. LABORATORY DATA: White count on admission 31.9, with 48 neutrophils, 25 bands, 20 lymphocytes, 3 monocytes. BUN 78, creatinine 3.9. Lactic acid 2.3. Liver enzymes normal. Urinalysis: White cells 66. Flu swab negative. PHYSICAL EXAMINATION: General: On exam, she is sedated, on the ventilator. Vital Signs: Temperature of 101.2, blood pressure 88/66, pulse 77 regular, respirations 21 per minute. Eyes: Sclerae are anicteric. Throat: Positive tracheostomy. Heart: Heart sounds S1, S2. Lungs: Mechanically ventilated. Abdomen: Soft. No tenderness elicited. Extremities: Positive for edema. Positive left upper extremity edema. IMPRESSION: 1. Sepsis/septic shock. 2. Respiratory failure/pneumonia. 3. Renal failure. 4. Status post renal transplant; not on immunosuppressive therapy. 5. Lactic acidosis. 6. Urinary tract infection. 7. Rule out Covid-19. Agree with airborne isolation, pending results of Covid-19 testing. Await cultures. Empiric antibiotic coverage with vancomycin, Zosyn, and Zithromax adjusted for renal failure. Ventilatory and hemodynamic support. Prognosis is guarded. Critical care time spent 35 minutes. Thank you for the kind referral. NEY NIEVES M.D. [id number]
--- NOTE | 2019-08-15 15:48 | PN ---
Progress Note (short form) - Note Progress Note: Problems 1. GORDON- oliguric 2. kidney transplant - maintained with prednisone 10 mg daily 3. chronic resp failure with trache 4. peg tube 5. r/o covid19 6. sepsis 7. anemia 8. hypotension 9. shock 10. lactic acidosis 11. CKD Current Medications Chlorhexidine Gluconate (Hibiclens For Decolonization -) 1 applic TP HS [facility] Last Admin: 08/14/19 22:08 Dose: 1 applic Documented by: Hydrocortisone Sodium Succinate (Solu-Cortef -) 50 mg IVPB QID [facility] Last Admin: 08/15/19 13:49 Dose: 50 mg Documented by: Norepinephrine Bitartrate 8, (000 mcg/ Dextrose) 500 mls @ 4.491 mls/hr IV [facility]; Protocol Last Titration: 08/15/19 06:09 Dose: 0.5 mcg/kg/min, 75 mls/hr Documented by: Piperacillin Sod/Tazobactam (Sod 2.25 gm/ Dextrose) 50 mls @ 100 mls/hr IVPB Q8 H-IV [facility]; Protocol Last Admin: 08/15/19 09:45 Dose: 100 mls/hr Documented by: Azithromycin (Zithromax 500mg Ivpb (Pre-Docked)) 500 mg in 250 mls @ 250 mls/hr IVPB DAILY [facility] Last Admin: 08/15/19 09:45 Dose: 250 mls/hr Documented by: Sodium Chloride (Normal Saline -) 1,000 mls @ 100 mls/hr IV [facility] Last Admin: 08/15/19 09:30 Dose: 100 mls/hr Documented by: Levetiracetam (Keppra Oral Solution -) 750 mg GT DAILY [facility] Last Admin: 08/15/19 09:44 Dose: 750 mg Documented by: Mupirocin (Bactroban Ointment (For Decolonization) -) 1 applic NS BID [facility] Stop: 08/19/19 21:59 Last Admin: 08/15/19 09:45 Dose: 1 applic Documented by: Pantoprazole Sodium (Protonix Iv) 40 mg IVPUSH DAILY [facility] Last Admin: 08/15/19 09:44 Dose: 40 mg Documented by: Last Vital Signs Temp Pulse Resp BP Pulse Ox 99.8 F H 85 24 H 105/69 95 08/15/19 12:00 08/15/19 14:00 08/15/19 14:00 08/15/19 14:00 08/15/19 10:00 CBC, BMP 08/15/19 06:02 08/15/19 06:02 IMP-Hypotension on pressors GORDON oliguric Respiratory failure on Chronic r/o covid Plan - cont pressors - vent support - follow renal function and urine output Discussed with ICU team -continue steroids
[2019-08-15] MEDS ORDERED: NOREPINEPHRINE BITARTRATE 4 MG/4 ML ML IV ONE (17:30)
[2019-08-15] MEDS: CHLORHEXIDINE GLUCONATE 4% CLEANSER FOR DECOLONIZATION TP SCH (21:43)
[2019-08-16] MEDS ORDERED: PIPERACILLIN/TAZOBACTAM 2.25 GM VIAL IVPB ONE ×4 (02:42→20:39)
[2019-08-16] MEDS ORDERED: DEXTROSE 5%-WATER - 50 ML IVPB ONE ×4 (02:43→20:40)
[2019-08-16] MEDS: PIPERACILLIN/TAZOB 2.25 GM 2.25 GM in DEXTROSE 5%-WATER - 50 ML IVPB SCH ×3 (02:45→17:52)
[2019-08-16] MEDS: NOREPINEPHRINE BITARTRATE 8,000 MCG in DEXTROSE 5%-WATER - 492 ML IV SCH (03:09)
[2019-08-16] MEDS ORDERED: NOREPINEPHRINE BITARTRATE 4 MG/4 ML ML IV ONE ×2 (04:43→09:03)
[2019-08-16 06:39] LABS: EOS % 0.1 % (0-4.5); HEMATOCRIT 28.5 % (32.4-45.2); HEMOGLOBIN 9.7 GM/dL (10.7-15.3); LYMPH % 3.9 % (8-40); MCH 31.3 pg (25.7-33.7); MCHC 33.9 g/dl (32.0-36.0); MEAN CELL VOLUME 92.4 fl (80-96); MEAN PLT VOLUME 7.6 fl (7.5-11.1); MONO % 1.8 % (3.8-10.2); NEUT % 94.2 % (42.8-82.8); PLATELET COUNT 175 K/MM3 (134-434); RBC 3.09 M/mm3 (3.60-5.2); RDW 18.4 % (11.6-15.6); WHITE BLOOD COUNT 27.4 K/mm3 (4.0-10.0)
[2019-08-16 07:17] LABS: ALBUMIN 1.6 g/dl (3.4-5.0); BILIRUBIN,TOTAL 0.4 mg/dL (0.2-1); BLOOD UREA NITROGEN 63.7 mg/dL (7-18); CALCIUM 7.5 mg/dL (8.5-10.1); CREATININE 2.8 mg/dL (0.55-1.3); MAGNESIUM 1.9 mg/dL (1.8-2.4); PHOSPHOROUS 3.6 mg/dL (2.5-4.9); POTASSIUM 3.2 mmol/L (3.5-5.1); TOT PROT 5.7 g/dl (6.4-8.2)
[2019-08-16] MEDS ORDERED: PT OWN MED DRAWER 7, Y5N ONE ×2 (08:23→09:54)
[2019-08-16] MEDS ORDERED: MAGNESIUM SULFATE IN WATER 2 GM/50 ML IVPB IVPB ONE (08:45)
[2019-08-16] MEDS ORDERED: POTASSIUM CHLORIDE 20 MEQ PREMIX IVPB 100 ML IVPB ONE (08:45)
[2019-08-16] MEDS: MUPIROCIN 2% TOPICAL OINTMENT FOR DECOLONIZATION NS SCH ×2 (09:41→21:00)
[2019-08-16] MEDS: PANTOPRAZOLE SODIUM 40 MG VIAL IVPUSH SCH (09:42)
[2019-08-16] MEDS: HYDROCORTISONE SOD SUCCINATE 100 MG/2 ML VIAL IVPB SCH ×4 (09:42→22:00)
[2019-08-16] MEDS: AZITHROMYCIN IVPB 500 MG/250 ML BAG IVPB SCH (09:42)
[2019-08-16 10:11] LABS: PLATELET ESTIMATE NORMAL
[2019-08-16] MEDS: levETIRAcetam 500 MG/5 ML ORAL SOLUTION (UNIT-DOSE CUPS) GT SCH (11:08)
[2019-08-16] MEDS: COLLAGENASE CLOSTRIDIUM HIST. 30 GRAMS TUBE TP SCH (11:08)
--- NOTE | 2019-08-16 11:14 | PN ---
Progress Note, Physician History of Present Illness: AWAKE, ALERT ON VENT REMAINS ON [employer] PRECAUTIONS PENDING COVID-19 TESTING BLOOD C/S + PRESUMED MRSA TEMPS DOWN AFEBRILE WBC REMAINS ELEVATED AZOTEMIA IMPROVED - Current Medication List Current Medications: Active Medications Chlorhexidine Gluconate (Hibiclens For Decolonization -) 1 applic TP HS [facility] Last Admin: 08/15/19 21:43 Dose: 1 applic Documented by: Collagenase (Santyl -) 1 applic TP DAILY [facility]; Protocol Last Admin: 08/16/19 11:08 Dose: 1 applic Documented by: Hydrocortisone Sodium Succinate (Solu-Cortef -) 50 mg IVPB QID [facility] Last Admin: 08/16/19 09:42 Dose: 50 mg Documented by: Norepinephrine Bitartrate 8, (000 mcg/ Dextrose) 500 mls @ 4.491 mls/hr IV [facility]; Protocol Last Titration: 08/16/19 06:34 Dose: 0.3 mcg/kg/min, 44.906 mls/hr Documented by: Piperacillin Sod/Tazobactam (Sod 2.25 gm/ Dextrose) 50 mls @ 100 mls/hr IVPB Q8H-IV [facility]; Protocol Last Admin: 08/16/19 09:43 Dose: 100 mls/hr Documented by: Azithromycin (Zithromax 500mg Ivpb (Pre-Docked)) 500 mg in 250 mls @ 250 mls/hr IVPB DAILY [facility] Last Admin: 08/16/19 09:42 Dose: 250 mls/hr Documented by: Sodium Chloride (Normal Saline -) 1,000 mls @ 100 mls/hr IV [facility] Last Admin: 08/15/19 09:30 Dose: 100 mls/hr Documented by: Vancomycin HCl 1,000 mg/ (Dextrose) 250 mls @ 166.667 mls/hr IVPB ONCE ONE; Protocol Stop: 08/16/19 12:42 Levetiracetam (Keppra Oral Solution -) 750 mg GT DAILY [facility] Last Admin: 08/16/19 11:08 Dose: 750 mg Documented by: Mupirocin (Bactroban Ointment (For Decolonization) -) 1 applic NS BID [facility] Stop: 08/19/19 21:59 Last Admin: 08/16/19 09:41 Dose: 1 applic Documented by: Pantoprazole Sodium (Protonix Iv) 40 mg IVPUSH DAILY [facility] Last Admin: 08/16/19 09:42 Dose: 40 mg Documented by: - Objective Vital Signs: Vital Signs Temperature 98.2 F 08/16/19 03:00 Pulse Rate 84 08/16/19 07:00 Respiratory Rate 22 H 08/16/19 08:46 Blood Pressure 115/73 08/16/19 07:00 O2 Sat by Pulse Oximetry (%) 99 08/16/19 04:14 Constitutional: Yes: No Distress Eyes: Yes: Conjunctiva Clear Cardiovascular: Yes: Regular Rate and Rhythm, S1, S2 Respiratory: Yes: Mechanically Ventilated, Rhonchi Gastrointestinal: Yes: Normal Bowel Sounds, Soft, Other (+ GT). No: Tenderness Extremities: Yes: Other (+ L UE DIFFUSE EDEMA) Edema: Yes Labs: CBC, BMP 08/16/19 06:07 08/16/19 06:07 INR, PTT INR 1.27 (0.83-1.09) H 08/14/19 14:30 Assessment/Plan PRESUMED MRSA BACTEREMIA/ SEPSIS SEPSIS/ SEPTIC SHOCK RESP FAILURE/ PNEUMONIA FEVER IMPROVED LEUKOCYTOSIS AZOTEMIA S/P RENAL TRANSPLANT, NOT ON IMMUNOSUPPRESSIVE TX R/O COVID-19 AWAIT FINAL BC REDOSE VANCOMYCIN REPEAT BC AM CONTINUE EMPIRIC ZOSYN/ ZITHROMAX VENTILATORY SUPPORT MAINTAIN [employer] PRECAUTIONS CRITICAL CARE TIME SPEND 35MIN
[2019-08-16] MEDS ORDERED: VANCOMYCIN 1 GRAM (PRE-DOCKED) 1,000 MG/250 ML BAG IVPB ONE (11:30)
--- NOTE | 2019-08-16 11:58 | PN ---
Progress Note (short form) - Note Progress Note: PULMONARY/CCM Pt seen and examined in the ICU. Vented, poorly responsive. On low dose levophed gtt. Blood cultures growing presumptive MRSA. Vital Signs Period Temp Pulse Resp BP Sys/Huff Pulse Ox Last 24 Hr 97.0 F-99.8 F 79-94 18-30 85-131/60-83 99-99 Gen: vented, poorly responsive, tachypneic Heart: RRR Lung: scattered rhonchi Abd: soft, nontender Ext: no edema CBC, BMP 08/16/19 06:07 08/16/19 06:07 Active Medications Chlorhexidine Gluconate (Hibiclens For Decolonization -) 1 applic TP HS [facility] Last Admin: 08/15/19 21:43 Dose: 1 applic Documented by: Collagenase (Santyl -) 1 applic TP DAILY [facility]; Protocol Last Admin: 08/16/19 11:08 Dose: 1 applic Documented by: Hydrocortisone Sodium Succinate (Solu-Cortef -) 50 mg IVPB QID [facility] Last Admin: 08/16/19 09:42 Dose: 50 mg Documented by: Norepinephrine Bitartrate 8, (000 mcg/ Dextrose) 500 mls @ 4.491 mls/hr IV ASDIR [facility]; Protocol Last Titration: 08/16/19 06:34 Dose: 0.3 mcg/kg/min, 44.906 mls/hr Documented by: Piperacillin Sod/Tazobactam (Sod 2.25 gm/ Dextrose) 50 mls @ 100 mls/hr IVPB Q8H-IV [facility]; Protocol Last Admin: 08/16/19 09:43 Dose: 100 mls/hr Documented by: Azithromycin (Zithromax 500mg Ivpb (Pre-Docked)) 500 mg in 250 mls @ 250 mls/hr IVPB DAILY [facility] Last Admin: 08/16/19 09:42 Dose: 250 mls/hr Documented by: Sodium Chloride (Normal Saline -) 1,000 mls @ 100 mls/hr IV [facility] Last Admin: 08/15/19 09:30 Dose: 100 mls/hr Documented by: Vancomycin HCl (Vancomycin (Pre-Docked)) 1,000 mg in 250 mls @ 166.667 mls/hr IVPB ONCE ONE; Protocol Stop: 08/16/19 12:59 Levetiracetam (Keppra Oral Solution -) 750 mg GT DAILY [facility] Last Admin: 08/16/19 11:08 Dose: 750 mg Documented by: Mupirocin (Bactroban Ointment (For Decolonization) -) 1 applic NS BID [facility] Stop: 08/19/19 21:59 Last Admin: 08/16/19 09:41 Dose: 1 applic Documented by: Pantoprazole Sodium (Protonix Iv) 40 mg IVPUSH DAILY [facility] Last Admin: 08/16/19 09:42 Dose: 40 mg Documented by: A/P Acute on Chronic Hypoxic Respiratory Failure Pneumonia Septic Shock Acute on Chronic Renal Failure h/o Renal Transplant Lactic Acidosis Hyponatremia CHF HTN Anemia - continue antibiotics - f/u cultures, serologies - taper off pressors to maintain MAP >65 - monitor urine output, creatinine - O2 to keep SpO2 >90% - IVF - continue stress dose steroids - continue assist control for now - DVT/GI prophylaxis - continue ICU monitoring for hemodynamic instability critical care time spent in reviewing chart, evaluating patient and formulating plan 35 min
[2019-08-16] MEDS ORDERED: MORPHINE SULFATE 2 MG/ML VIAL ONE (14:41)
[2019-08-16] MEDS ORDERED: MORPHINE SULFATE 2 MG/ML VIAL IVPUSH ONE (15:00)
--- NOTE | 2019-08-16 17:02 | PN ---
Progress Note (short form) - Note Progress Note: Problems 1. GORDON- oliguric 2. kidney transplant - maintained with prednisone 10 mg daily 3. chronic resp failure with trache 4. peg tube 5. r/o covid19 6. sepsis 7. anemia 8. hypotension 9. shock 10. lactic acidosis 11. CKD Current Medications Chlorhexidine Gluconate (Hibiclens For Decolonization -) 1 applic TP HS [facility] Last Admin: 08/15/19 21:43 Dose: 1 applic Documented by: Collagenase (Santyl -) 1 applic TP DAILY [facility]; Protocol Last Admin: 08/16/19 11:08 Dose: 1 applic Documented by: Hydrocortisone Sodium Succinate (Solu-Cortef -) 50 mg IVPB QID [facility] Last Admin: 08/16/19 09:42 Dose: 50 mg Documented by: Norepinephrine Bitartrate 8, (000 mcg/ Dextrose) 500 mls @ 4.491 mls/hr IV [facility]IR [facility]; Protocol Last Titration: 08/16/19 06:34 Dose: 0.3 mcg/kg/min, 44.906 mls/hr Documented by: Piperacillin Sod/Tazobactam (Sod 2.25 gm/ Dextrose) 50 mls @ 100 mls/hr IVPB Q8H-IV [facility]; Protocol Last Admin: 08/16/19 09:43 Dose: 100 mls/hr Documented by: Azithromycin (Zithromax 500mg Ivpb (Pre-Docked)) 500 mg in 250 mls @ 250 mls/hr IVPB DAILY [facility] Last Admin: 08/16/19 09:42 Dose: 250 mls/hr Documented by: Sodium Chloride (Normal Saline -) 1,000 mls @ 100 mls/hr IV [facility] Last Admin: 08/15/19 09:30 Dose: 100 mls/hr Documented by: Levetiracetam (Keppra Oral Solution -) 750 mg GT DAILY [facility] Last Admin: 08/16/19 11:08 Dose: 750 mg Documented by: Mupirocin (Bactroban Ointment (For Decolonization) -) 1 applic NS BID [facility] Stop: 08/19/19 21:59 Last Admin: 08/16/19 09:41 Dose: 1 applic Documented by: Pantoprazole Sodium (Protonix Iv) 40 mg IVPUSH DAILY [facility] Last Admin: 08/16/19 09:42 Dose: 40 mg Documented by: Last Vital Signs Temp Pulse Resp BP Pulse Ox 98.2 F 88 26 H 105/71 99 08/16/19 03:00 08/16/19 14:00 08/16/19 14:00 08/16/19 14:00 08/16/19 04:14 CBC, BMP 08/16/19 06:07 08/16/19 06:07 CBC, BMP 08/15/19 06:02 08/15/19 06:02 IMP-Hypotension, improving now off pressors GORDON oliguric Respiratory failure on Chronic r/o covid Plan - vent support - follow renal function and urine output
[2019-08-16] MEDS: SODIUM CHLORIDE 1,000 ML IV SCH (17:51)
--- NOTE | 2019-08-16 17:56 | PN ---
Progress Note, Physician Chief Complaint: Acute on Chronic Hypoxic Respiratory Failure Pneumonia Septic Shock Acute on Chronic Renal Failure h/o Renal Transplant Lactic Acidosis CHF HTN Anemia History of Present Illness: Mechanically vented and sedated Awaiting COVID serology - Current Medication List Current Medications: Active Medications Chlorhexidine Gluconate (Hibiclens For Decolonization -) 1 applic TP HS [facility] Last Admin: 08/15/19 21:43 Dose: 1 applic Documented by: Collagenase (Santyl -) 1 applic TP DAILY [facility]; Protocol Last Admin: 08/16/19 11:08 Dose: 1 applic Documented by: Hydrocortisone Sodium Succinate (Solu-Cortef -) 50 mg IVPB QID [facility] Last Admin: 08/16/19 17:52 Dose: 50 mg Documented by: Norepinephrine Bitartrate 8, (000 mcg/ Dextrose) 500 mls @ 4.491 mls/hr IV ASDIR [facility]; Protocol Last Titration: 08/16/19 06:34 Dose: 0.3 mcg/kg/min, 44.906 mls/hr Documented by: Piperacillin Sod/Tazobactam (Sod 2.25 gm/ Dextrose) 50 mls @ 100 mls/hr IVPB Q8H-IV [facility]; Protocol Last Admin: 08/16/19 17:52 Dose: 100 mls/hr Documented by: Azithromycin (Zithromax 500mg Ivpb (Pre-Docked)) 500 mg in 250 mls @ 250 mls/hr IVPB DAILY [facility] Last Admin: 08/16/19 09:42 Dose: 250 mls/hr Documented by: Sodium Chloride (Normal Saline -) 1,000 mls @ 100 mls/hr IV ASDIR [facility] Last Admin: 08/16/19 17:51 Dose: 100 mls/hr Documented by: Levetiracetam (Keppra Oral Solution -) 750 mg GT DAILY [facility] Last Admin: 08/16/19 11:08 Dose: 750 mg Documented by: Mupirocin (Bactroban Ointment (For Decolonization) -) 1 applic NS BID [facility] Stop: 08/19/19 21:59 Last Admin: 08/16/19 09:41 Dose: 1 applic Documented by: Pantoprazole Sodium (Protonix Iv) 40 mg IVPUSH DAILY [facility] Last Admin: 08/16/19 09:42 Dose: 40 mg Documented by: - Objective Vital Signs: Vital Signs Temperature 98.2 F 08/16/19 03:00 Pulse Rate 91 H 08/16/19 17:00 Respiratory Rate 24 H 08/16/19 17:00 Blood Pressure 107/68 08/16/19 17:00 O2 Sat by Pulse Oximetry (%) 99 08/16/19 04:14 Constitutional: Yes: No Distress, Calm, Cachectic Cardiovascular: Yes: Regular Rate and Rhythm Respiratory: Yes: Mechanically Ventilated, Rhonchi (diffuse), Tachypnea Gastrointestinal: Yes: Normal Bowel Sounds, Soft Genitourinary: Yes: Christy Present Musculoskeletal: Yes: Other (sedated) Edema: No Peripheral Pulses WNL: Yes Neurological: Yes: Other (sedated) Labs: CBC, BMP 08/16/19 06:07 08/16/19 06:07 INR, PTT INR 1.27 (0.83-1.09) H 08/14/19 14:30 Problem List - Problems (1) Anemia Assessment/Plan: -multifactorial -Iron profile+ B12 normal -TSH Low-sick thyroid syndrome? -Stool OB negative -Received multiple transfusions this admission -Monitor trend -Hold any AC Problems reviewed: Yes Code(s): D64.9 - ANEMIA, UNSPECIFIED (2) Chronic respiratory failure with hypoxia and hypercapnia Assessment/Plan: -On mechanical vent -Pulmonary on board -Bronchodilators -Rapid influenza negative -Viral serology pending including COVID Problems reviewed: Yes Code(s): J96.11 - CHRONIC RESPIRATORY FAILURE WITH HYPOXIA; J96.12 - CHRONIC RESPIRATORY FAILURE WITH HYPERCAPNIA (3) Renal transplant recipient Assessment/Plan: -On Prednisone prior to admission -[facility] -Nephrology on board Problems reviewed: Yes Code(s): Z94.0 - KIDNEY TRANSPLANT STATUS (4) Sepsis Assessment/Plan: -Lactic acidosis resolved -Still on pressors -IV abx -IVF -ID on board -Cultures: Microbiology 08/14/19 14:50 Blood - Central Line Blood Culture - Preliminary Pending Organism 08/14/19 19:03 Sputum - Endotrachea Suction/Ventilator Gram Stain - Final 08/14/19 19:03 Sputum - Endotrachea Suction/Ventilator Sputum Culture - Preliminary Presumptive Mrsa (Pbp2a Pos) Non Lactose Fermenting Gnb 08/14/19 14:30 Blood - Central Line Blood Culture - Preliminary Presumptive Mrsa (Pbp2a Pos) 08/14/19 00:25 Urine - Urine - Catheterized Urine Culture - Final NO GROWTH OBTAINED 08/14/19 14:50 Urine - Urine Christy Legionella Antigen - Final 08/14/19 14:50 Urine - Urine Christy Streptococcus pneumoniae Antigen (M - Final 08/14/19 00:25 Stool Clostridioides difficile Antigen - Final 08/14/19 00:25 Stool Clostridioides difficile Toxin Assay - Final -Afebrile Problems reviewed: Yes Code(s): A41.9 - SEPSIS, UNSPECIFIED ORGANISM Assessment/Plan see problem list
[2019-08-16] MEDS: CHLORHEXIDINE GLUCONATE 4% CLEANSER FOR DECOLONIZATION TP SCH (22:00)
[2019-08-17] MEDS ORDERED: DEXTROSE 5%-WATER - 50 ML IVPB ONE ×3 (00:47→17:26)
[2019-08-17] MEDS ORDERED: PIPERACILLIN/TAZOBACTAM 2.25 GM VIAL IVPB ONE ×3 (00:47→17:26)
[2019-08-17] MEDS: NOREPINEPHRINE BITARTRATE 8,000 MCG in DEXTROSE 5%-WATER - 492 ML IV SCH (01:39)
[2019-08-17] MEDS: PIPERACILLIN/TAZOB 2.25 GM 2.25 GM in DEXTROSE 5%-WATER - 50 ML IVPB SCH ×3 (04:28→17:29)
[2019-08-17] MEDS ORDERED: PT OWN MED DRAWER 7, Y5N ONE (09:21)
[2019-08-17] MEDS: levETIRAcetam 500 MG/5 ML ORAL SOLUTION (UNIT-DOSE CUPS) GT SCH (10:31)
[2019-08-17] MEDS: PANTOPRAZOLE SODIUM 40 MG VIAL IVPUSH SCH (10:31)
[2019-08-17] MEDS: HYDROCORTISONE SOD SUCCINATE 100 MG/2 ML VIAL IVPB SCH ×2 (10:32→22:18)
[2019-08-17] MEDS: AZITHROMYCIN IVPB 500 MG/250 ML BAG IVPB SCH (10:33)
[2019-08-17] MEDS: MUPIROCIN 2% TOPICAL OINTMENT FOR DECOLONIZATION NS SCH ×2 (10:40→22:18)
[2019-08-17 11:20] LABS: INR 2.04 (0.83-1.09); PROTHROMBIN TIME (PATIENT) 24.3 SEC (9.7-13.0)
[2019-08-17] MEDS ORDERED: VANCOMYCIN 1 GM in D5W (PRE-DOCKED) 1,000 MG/250 ML IVPB ONE (11:40)
[2019-08-17] MEDS: SODIUM CHLORIDE 1,000 ML IV SCH (12:00)
--- NOTE | 2019-08-17 12:44 | PN ---
Progress Note (short form) - Note Progress Note: PULMONARY/CCM Pt seen and examined in the ICU. Vented, poorly responsive. Off pressors. Vital Signs Period Temp Pulse Resp BP Sys/Huff Pulse Ox Last 24 Hr 98.6 F 78-99 16-26 85-132/49-93 99-100 Intake & Output 08/14/19 08/15/19 08/16/19 08/17/19 23:59 23:59 23:59 23:59 Intake Total 1330 4663 2404 1250 Output Total 170 278 675 6109 Balance 1160 3713 1454 250 Weight 43.5 kg 45.3 kg 44.906 kg Gen: vented, poorly responsive, less tachypneic Heart: RRR Lung: scattered rhonchi Abd: soft, nontender Ext: + edema CBC, BMP 08/17/19 10:50 08/17/19 10:50 Active Medications Chlorhexidine Gluconate (Hibiclens For Decolonization -) 1 applic TP HS [facility] Last Admin: 08/16/19 22:00 Dose: 1 applic Documented by: Collagenase (Santyl -) 1 applic TP DAILY [facility]; Protocol Last Admin: 08/16/19 11:08 Dose: 1 applic Documented by: Hydrocortisone Sodium Succinate (Solu-Cortef -) 50 mg IVPB QID [facility] Last Admin: 08/17/19 10:32 Dose: 50 mg Documented by: Piperacillin Sod/Tazobactam (Sod 2.25 gm/ Dextrose) 50 mls @ 100 mls/hr IVPB Q8H-IV [facility]; Protocol Last Admin: 08/17/19 10:40 Dose: 100 mls/hr Documented by: Azithromycin (Zithromax 500mg Ivpb (Pre-Docked)) 500 mg in 250 mls @ 250 mls/hr IVPB DAILY [facility] Last Admin: 08/17/19 10:33 Dose: 250 mls/hr Documented by: Levetiracetam (Keppra Oral Solution -) 750 mg GT DAILY [facility] Last Admin: 08/17/19 10:31 Dose: 750 mg Documented by: Mupirocin (Bactroban Ointment (For Decolonization) -) 1 applic NS BID [facility] Stop: 08/19/19 21:59 Last Admin: 08/17/19 10:40 Dose: 1 applic Documented by: Pantoprazole Sodium (Protonix Iv) 40 mg IVPUSH DAILY [facility] Last Admin: 08/17/19 10:31 Dose: 40 mg Documented by: A/P Acute on Chronic Hypoxic Respiratory Failure Pneumonia Septic Shock Acute on Chronic Renal Failure h/o Renal Transplant Lactic Acidosis Hyponatremia CHF HTN Anemia - continue antibiotics - f/u cultures, serologies - off pressors, maintain MAP >65 - monitor urine output, creatinine - O2 to keep SpO2 >90% - d/c IVF - taper stress dose steroids - continue assist control for now - DVT/GI prophylaxis - can monitor on vent floor - low clinical suspicion for COVID-19 critical care time spent in reviewing chart, evaluating patient and formulating plan 35 min
--- NOTE | 2019-08-17 13:39 | PN ---
Progress Note, Physician History of Present Illness: AWAKE, ALERT ON VENT REMAINS ON [employer] PENDING COVID-19 TESTING BLOOD C/S + PRESUMED MRSA, SCN TEMPS DOWN AFEBRILE WBC REMAINS ELEVATED 27k AZOTEMIA IMPROVED - Current Medication List Current Medications: Active Medications Chlorhexidine Gluconate (Hibiclens For Decolonization -) 1 applic TP HS [facility] Last Admin: 08/16/19 22:00 Dose: 1 applic Documented by: Collagenase (Santyl -) 1 applic TP DAILY [facility]; Protocol Last Admin: 08/16/19 11:08 Dose: 1 applic Documented by: Hydrocortisone Sodium Succinate (Solu-Cortef -) 50 mg IVPB BID [facility] Piperacillin Sod/Tazobactam (Sod 2.25 gm/ Dextrose) 50 mls @ 100 mls/hr IVPB Q8H-IV [facility]; Protocol Last Admin: 08/17/19 10:40 Dose: 100 mls/hr Documented by: Azithromycin (Zithromax 500mg Ivpb (Pre-Docked)) 500 mg in 250 mls @ 250 mls/hr IVPB DAILY [facility] Last Admin: 08/17/19 10:33 Dose: 250 mls/hr Documented by: Levetiracetam (Keppra Oral Solution -) 750 mg GT DAILY [facility] Last Admin: 08/17/19 10:31 Dose: 750 mg Documented by: Mupirocin (Bactroban Ointment (For Decolonization) -) 1 applic NS BID [facility] Stop: 08/19/19 21:59 Last Admin: 08/17/19 10:40 Dose: 1 applic Documented by: Pantoprazole Sodium (Protonix Iv) 40 mg IVPUSH DAILY [facility] Last Admin: 08/17/19 10:31 Dose: 40 mg Documented by: - Objective Vital Signs: Vital Signs Temperature 98.6 F 08/16/19 18:00 Pulse Rate 84 08/17/19 10:00 Respiratory Rate 21 H 08/17/19 12:07 Blood Pressure 125/71 08/17/19 10:00 O2 Sat by Pulse Oximetry (%) 100 08/17/19 10:00 Constitutional: Yes: No Distress Cardiovascular: Yes: Regular Rate and Rhythm, S1, S2 Respiratory: Yes: Mechanically Ventilated Gastrointestinal: Yes: Normal Bowel Sounds, Soft. No: Tenderness Extremities: Yes: Other (+ L UE EDEMA) Edema: Yes Labs: CBC, BMP 08/17/19 10:50 08/17/19 10:50 INR, PTT INR 2.04 (0.83-1.09) H 08/17/19 10:50 Assessment/Plan ?POLYMICROBIAL BACTEREMIA/ SEPSIS SEPSIS/ SEPTIC SHOCK RESP FAILURE/ PNEUMONIA FEVER IMPROVED LEUKOCYTOSIS AZOTEMIA IMPROVED S/P RENAL TRANSPLANT, NOT ON IMMUNOSUPPRESSIVE TX R/O COVID-19 AWAIT FINAL BC REDOSE VANCOMYCIN CONTINUE EMPIRIC ZOSYN/ ZITHROMAX VENTILATORY SUPPORT MAINTAIN [employer] CRITICAL CARE TIME SPEND 35MIN
--- NOTE | 2019-08-17 13:49 | PN ---
Progress Note, Physician Chief Complaint: hypotension and fevers History of Present Illness: 63 year old female with PMH ESRD, s/p renal transplant, left avf, anemia, htn, chf, trach/peg presents to the ED with hypotension and fevers, admitted to ICU - Current Medication List Current Medications: Active Medications Chlorhexidine Gluconate (Hibiclens For Decolonization -) 1 applic TP HS [facility] Last Admin: 08/16/19 22:00 Dose: 1 applic Documented by: Collagenase (Santyl -) 1 applic TP DAILY [facility]; Protocol Last Admin: 08/16/19 11:08 Dose: 1 applic Documented by: Hydrocortisone Sodium Succinate (Solu-Cortef -) 50 mg IVPB BID [facility] Piperacillin Sod/Tazobactam (Sod 2.25 gm/ Dextrose) 50 mls @ 100 mls/hr IVPB Q8H-IV [facility]; Protocol Last Admin: 08/17/19 10:40 Dose: 100 mls/hr Documented by: Azithromycin (Zithromax 500mg Ivpb (Pre-Docked)) 500 mg in 250 mls @ 250 mls/hr IVPB DAILY [facility] Last Admin: 08/17/19 10:33 Dose: 250 mls/hr Documented by: Levetiracetam (Keppra Oral Solution -) 750 mg GT DAILY [facility] Last Admin: 08/17/19 10:31 Dose: 750 mg Documented by: Mupirocin (Bactroban Ointment (For Decolonization) -) 1 applic NS BID [facility] Stop: 08/19/19 21:59 Last Admin: 08/17/19 10:40 Dose: 1 applic Documented by: Pantoprazole Sodium (Protonix Iv) 40 mg IVPUSH DAILY [facility] Last Admin: 08/17/19 10:31 Dose: 40 mg Documented by: - Objective Vital Signs: Vital Signs Temperature 98.6 F 08/16/19 18:00 Pulse Rate 84 08/17/19 10:00 Respiratory Rate 21 H 08/17/19 12:07 Blood Pressure 125/71 08/17/19 10:00 O2 Sat by Pulse Oximetry (%) 100 08/17/19 10:00 Constitutional: Yes: No Distress HENT: Yes: Atraumatic, Normocephalic Neck: Yes: Supple, Other (et tube) Cardiovascular: Yes: Regular Rate and Rhythm Respiratory: Yes: Diminished Gastrointestinal: Yes: Normal Bowel Sounds ...Rectal Exam: Yes: Other (rectal tube) Edema: LUE: 1+ Neurological: Yes: Other Labs: CBC, BMP 08/17/19 10:50 08/17/19 10:50 INR, PTT INR 2.04 (0.83-1.09) H 08/17/19 10:50 Problem List - Problems (1) Septic shock Assessment/Plan: ID consult apperciated blood cultures mrsa urine culture negative IV antbx IVF resus c.diff neg Accepted for transfer to [facility] ICU- fiber analyst Dr. Georges- that was as of saturday Code(s): A41.9 - SEPSIS, UNSPECIFIED ORGANISM; R65.21 - SEVERE SEPSIS WITH SEPTIC SHOCK (2) Anemia Assessment/Plan: s/p transfusion receives procit as outpatient stool occult negative iv ppi monitor cbc Code(s): D64.9 - ANEMIA, UNSPECIFIED (3) PNA (pneumonia) Assessment/Plan: Pulm eval appreciated IV antbx appreciated chest xray noted ct chest noted respiratory panel still pending at this time. Code(s): J18.9 - PNEUMONIA, UNSPECIFIED ORGANISM (4) Renal failure Assessment/Plan: nephrology eval apperciated renal transplant patient ARF left avf Code(s): N19 - UNSPECIFIED KIDNEY FAILURE (5) Renal transplant recipient Assessment/Plan: transplant physician Dr. Valdez at [facility] prednisone outpatient cont solucortef Code(s): Z94.0 - KIDNEY TRANSPLANT STATUS (6) Chronic respiratory failure with hypoxia and hypercapnia Assessment/Plan: pulm eval appreciated mechanically ventilated cont vent settings per ICU Code(s): J96.11 - CHRONIC RESPIRATORY FAILURE WITH HYPOXIA; J96.12 - CHRONIC RESPIRATORY FAILURE WITH HYPERCAPNIA (7) HTN (hypertension) Assessment/Plan: hold home metoprolol tartrate off pressors Code(s): I10 - ESSENTIAL (PRIMARY) HYPERTENSION (8) CHF (congestive heart failure) Assessment/Plan: I & O monitor fluid status Problems reviewed: Yes Code(s): I50.9 - HEART FAILURE, UNSPECIFIED Qualifiers: Heart failure chronicity: chronic (9) Seizure disorder Assessment/Plan: cont keppra Code(s): G40.909 - EPILEPSY, UNSP, NOT INTRACTABLE, WITHOUT STATUS EPILEPTICUS
[2019-08-17] MEDS: COLLAGENASE CLOSTRIDIUM HIST. 30 GRAMS TUBE TP SCH (15:00)
--- NOTE | 2019-08-17 15:30 | PN ---
Progress Note (short form) - Note Progress Note: Problems 1. GORDON- oliguric 2. kidney transplant - maintained with prednisone 10 mg daily 3. chronic resp failure with trache 4. peg tube 5. r/o covid19 6. sepsis 7. anemia 8. hypotension 9. shock 10. lactic acidosis 11. CKD Current Medications Chlorhexidine Gluconate (Hibiclens For Decolonization -) 1 applic TP HS [facility] Last Admin: 08/16/19 22:00 Dose: 1 applic Documented by: Collagenase (Santyl -) 1 applic TP DAILY [facility]; Protocol Last Admin: 08/16/19 11:08 Dose: 1 applic Documented by: Hydrocortisone Sodium Succinate (Solu-Cortef -) 50 mg IVPB BID [facility] Piperacillin Sod/Tazobactam (Sod 2.25 gm/ Dextrose) 50 mls @ 100 mls/hr IVPB Q8H-IV [facility]; Protocol Last Admin: 08/17/19 10:40 Dose: 100 mls/hr Documented by: Azithromycin (Zithromax 500mg Ivpb (Pre-Docked)) 500 mg in 250 mls @ 250 mls/hr IVPB DAILY [facility] Last Admin: 08/17/19 10:33 Dose: 250 mls/hr Documented by: Levetiracetam (Keppra Oral Solution -) 750 mg GT DAILY [facility] Last Admin: 08/17/19 10:31 Dose: 750 mg Documented by: Mupirocin (Bactroban Ointment (For Decolonization) -) 1 applic NS BID [facility] Stop: 08/19/19 21:59 Last Admin: 08/17/19 10:40 Dose: 1 applic Documented by: Pantoprazole Sodium (Protonix Iv) 40 mg IVPUSH DAILY [facility] Last Admin: 08/17/19 10:31 Dose: 40 mg Documented by: Last Vital Signs Temp Pulse Resp BP Pulse Ox 98.2 F 84 18 114/76 100 08/17/19 14:00 08/17/19 14:00 08/17/19 14:00 08/17/19 14:00 08/17/19 10:00 Intake & Output 08/16/19 08/17/19 08/17/19 23:59 07:59 15:59 Intake Total 1250 Output Total 1000 Balance 250 patient is in isolation on vent reported unresponsive CBC, BMP 08/17/19 10:50 08/17/19 10:50 CBC, BMP 08/16/19 06:07 08/16/19 06:07 CBC, BMP 08/15/19 06:02 08/15/19 06:02 IMP- gordon on chronic- now non-oliguric s/p kidney transplant sepsis- mrsa r/o covid- results pending LUE swelling/ r/o thrombosis Plan - vent support - follow renal function and urine output -anticoagulate until doppler results
[2019-08-17 15:59] LABS: BASO % 0.1 % (0-2.0); EOS % 0.3 % (0-4.5); HEMOGLOBIN 7.3 GM/dL (10.7-15.3); LYMPH % 3.1 % (8-40); MCH 31.2 pg (25.7-33.7); MCHC 28.1 g/dl (32.0-36.0); MEAN CELL VOLUME 110.9 fl (80-96); MEAN PLT VOLUME 8.1 fl (7.5-11.1); MONO % 2.4 % (3.8-10.2); NEUT % 94.1 % (42.8-82.8); PLATELET COUNT 77 K/MM3 (134-434); RBC 2.34 M/mm3 (3.60-5.2); RDW 22.2 % (11.6-15.6); WHITE BLOOD COUNT 15.3 K/mm3 (4.0-10.0)
[2019-08-17 16:07] LABS: INR 1.03 (0.83-1.09); PROTHROMBIN TIME (PATIENT) 12.1 SEC (9.7-13.0)
[2019-08-17 16:09] LABS: ACTIVATED PTT 38.6 SECONDS (25.2-36.5)
[2019-08-17 16:28] LABS: ALBUMIN 1.2 g/dl (3.4-5.0); BILIRUBIN,TOTAL 0.3 mg/dL (0.2-1); BLOOD UREA NITROGEN 53.3 mg/dL (7-18); CREATININE 2.6 mg/dL (0.55-1.3); MAGNESIUM 1.8 mg/dL (1.8-2.4); PHOSPHOROUS 4.2 mg/dL (2.5-4.9); TOT PROT 4.3 g/dl (6.4-8.2)
[2019-08-17 16:46] LABS: ANISOCYTOSIS 3+
[2019-08-17 16:47] LABS: PLATELET ESTIMATE DECREASED
[2019-08-17 17:04] LABS: POTASSIUM 2.4 mmol/L (3.5-5.1)
[2019-08-17 17:05] LABS: CALCIUM 5.5 mg/dL (8.5-10.1)
[2019-08-17 21:53] LABS: BASO % 0.7 % (0-2.0); EOS % 0.2 % (0-4.5); HEMATOCRIT 30.6 % (32.4-45.2); HEMOGLOBIN 10.1 GM/dL (10.7-15.3); LYMPH % 4.9 % (8-40); MCH 31.3 pg (25.7-33.7); MCHC 33.1 g/dl (32.0-36.0); MEAN CELL VOLUME 94.7 fl (80-96); MEAN PLT VOLUME 7.7 fl (7.5-11.1); MONO % 0.2 % (3.8-10.2); PLATELET COUNT 107 K/MM3 (134-434); RBC 3.23 M/mm3 (3.60-5.2); RDW 18.1 % (11.6-15.6); WHITE BLOOD COUNT 21.5 K/mm3 (4.0-10.0)
[2019-08-17] MEDS: CHLORHEXIDINE GLUCONATE 4% CLEANSER FOR DECOLONIZATION TP SCH (22:18)
[2019-08-17 22:31] LABS: ALBUMIN 1.8 g/dl (3.4-5.0); BILIRUBIN,TOTAL 0.4 mg/dL (0.2-1); BLOOD UREA NITROGEN 69.5 mg/dL (7-18); CALCIUM 7.4 mg/dL (8.5-10.1); CREATININE 2.9 mg/dL (0.55-1.3); MAGNESIUM 2.4 mg/dL (1.8-2.4); PHOSPHOROUS 5.4 mg/dL (2.5-4.9); TOT PROT 5.9 g/dl (6.4-8.2)
[2019-08-17 23:10] LABS: PLATELET ESTIMATE DECREASED
[2019-08-18] MEDS ORDERED: PIPERACILLIN/TAZOBACTAM 2.25 GM VIAL IVPB ONE ×3 (01:24→15:42)
[2019-08-18] MEDS ORDERED: DEXTROSE 5%-WATER - 50 ML IVPB ONE ×3 (01:25→15:42)
[2019-08-18] MEDS: PIPERACILLIN/TAZOB 2.25 GM 2.25 GM in DEXTROSE 5%-WATER - 50 ML IVPB SCH ×3 (01:35→17:41)
[2019-08-18 07:51] LABS: BASO % 0.2 % (0-2.0); EOS % 1.1 % (0-4.5); HEMATOCRIT 29.8 % (32.4-45.2); HEMOGLOBIN 9.8 GM/dL (10.7-15.3); LYMPH % 3.5 % (8-40); MCH 31.1 pg (25.7-33.7); MCHC 33.1 g/dl (32.0-36.0); MEAN PLT VOLUME 8.1 fl (7.5-11.1); MONO % 0.4 % (3.8-10.2); NEUT % 94.8 % (42.8-82.8); PLATELET COUNT 114 K/MM3 (134-434); RBC 3.17 M/mm3 (3.60-5.2); RDW 17.9 % (11.6-15.6); WHITE BLOOD COUNT 22.2 K/mm3 (4.0-10.0)
[2019-08-18 08:21] LABS: ALBUMIN 1.8 g/dl (3.4-5.0); BILIRUBIN,TOTAL 0.4 mg/dL (0.2-1); BLOOD UREA NITROGEN 70.6 mg/dL (7-18); CALCIUM 7.5 mg/dL (8.5-10.1); MAGNESIUM 2.6 mg/dL (1.8-2.4); PHOSPHOROUS 4.9 mg/dL (2.5-4.9); TOT PROT 5.7 g/dl (6.4-8.2)
[2019-08-18 08:30] LABS: POTASSIUM 2.8 mmol/L (3.5-5.1)
[2019-08-18] MEDS ORDERED: PT OWN MED DRAWER 7, Y5N ONE ×2 (09:13→09:57)
[2019-08-18] MEDS ORDERED: POTASSIUM CHLORIDE ORAL LIQUID 20 MEQ/15 ML PO ONE (09:35)
[2019-08-18] MEDS: KCL 10 MEQ IVPB 10 MEQ/100 ML INFUS.BAG IVPB SCH ×3 (09:44→11:42)
[2019-08-18] MEDS: HYDROCORTISONE SOD SUCCINATE 100 MG/2 ML VIAL IVPB SCH (09:45)
[2019-08-18] MEDS: AZITHROMYCIN IVPB 500 MG/250 ML BAG IVPB SCH (09:46)
[2019-08-18] MEDS: PANTOPRAZOLE SODIUM 40 MG VIAL IVPUSH SCH (09:46)
[2019-08-18] MEDS: MUPIROCIN 2% TOPICAL OINTMENT FOR DECOLONIZATION NS SCH ×2 (09:46→21:03)
[2019-08-18] MEDS: COLLAGENASE CLOSTRIDIUM HIST. 30 GRAMS TUBE TP SCH (09:47)
[2019-08-18] MEDS: levETIRAcetam 500 MG/5 ML ORAL SOLUTION (UNIT-DOSE CUPS) GT SCH (09:59)
[2019-08-18 12:21] LABS: ANISOCYTOSIS 1+; MACROCYTOSIS 0; OVALOCYTE 1+; PLATELET ESTIMATE DECREASED; TEAR DROP CELLS 1+
--- NOTE | 2019-08-18 12:38 | PN ---
Progress Note (short form) - Note Progress Note: PULMONARY/CCM Pt seen and examined in the ICU. Vented, poorly responsive. Off pressors. Vital Signs Period Temp Pulse Resp BP Sys/Huff Pulse Ox Last 24 Hr 97.5 F-98.2 F 78-103 18-25 98-116/53-79 99-100 Intake & Output 08/15/19 08/16/19 08/17/19 08/18/19 23:59 23:59 23:59 23:59 Intake Total 4663 2404 2720 340 Output Total 430 814 1630 250 Balance 3713 1454 995 90 Weight 45.3 kg 44.906 kg Gen: vented, poorly responsive, less tachypneic Heart: RRR Lung: scattered rhonchi Abd: soft, nontender Ext: + edema CBC, BMP 08/18/19 07:00 08/18/19 07:00 Active Medications Chlorhexidine Gluconate (Hibiclens For Decolonization -) 1 applic TP HS [facility] Last Admin: 08/17/19 22:18 Dose: 1 applic Documented by: Collagenase (Santyl -) 1 applic TP DAILY [facility]; Protocol Last Admin: 08/18/19 09:47 Dose: 1 applic Documented by: Hydrocortisone Sodium Succinate (Solu-Cortef -) 50 mg IVPB BID [facility] Last Admin: 08/18/19 09:45 Dose: 50 mg Documented by: Piperacillin Sod/Tazobactam (Sod 2.25 gm/ Dextrose) 50 mls @ 100 mls/hr IVPB Q8H-IV [facility]; Protocol Last Admin: 08/18/19 09:46 Dose: 100 mls/hr Documented by: Azithromycin (Zithromax 500mg Ivpb (Pre-Docked)) 500 mg in 250 mls @ 250 mls/hr IVPB DAILY [facility] Last Admin: 08/18/19 09:46 Dose: 250 mls/hr Documented by: Levetiracetam (Keppra Oral Solution -) 750 mg GT DAILY [facility] Last Admin: 08/18/19 09:59 Dose: 750 mg Documented by: Mupirocin (Bactroban Ointment (For Decolonization) -) 1 applic NS BID [facility] Stop: 08/19/19 21:59 Last Admin: 08/18/19 09:46 Dose: 1 applic Documented by: Pantoprazole Sodium (Protonix Iv) 40 mg IVPUSH DAILY [facility] Last Admin: 08/18/19 09:46 Dose: 40 mg Documented by: A/P Acute on Chronic Hypoxic Respiratory Failure Pneumonia Septic Shock Acute on Chronic Renal Failure h/o Renal Transplant Lactic Acidosis Hyponatremia CHF HTN Anemia - continue antibiotics - f/u cultures, serologies - off pressors, maintain MAP >65 - monitor urine output, creatinine - O2 to keep SpO2 >90% - replete lytes - taper stress dose steroids to home dose - continue assist control for now - DVT/GI prophylaxis - can monitor on vent floor - low clinical suspicion for COVID-19
--- NOTE | 2019-08-18 16:20 | PN ---
Progress Note, Physician Chief Complaint: hypotension and fevers History of Present Illness: 63 year old female with PMH ESRD, s/p renal transplant, left avf, anemia, htn, chf, trach/peg presents to the ED with hypotension and fevers, admitted to ICU - Current Medication List Current Medications: Active Medications Chlorhexidine Gluconate (Hibiclens For Decolonization -) 1 applic TP HS [facility] Last Admin: 08/17/19 22:18 Dose: 1 applic Documented by: Collagenase (Santyl -) 1 applic TP DAILY [facility]; Protocol Last Admin: 08/18/19 09:47 Dose: 1 applic Documented by: Piperacillin Sod/Tazobactam (Sod 2.25 gm/ Dextrose) 50 mls @ 100 mls/hr IVPB Q8H-IV [facility]; Protocol Last Admin: 08/18/19 09:46 Dose: 100 mls/hr Documented by: Azithromycin (Zithromax 500mg Ivpb (Pre-Docked)) 500 mg in 250 mls @ 250 mls/hr IVPB DAILY [facility] Last Admin: 08/18/19 09:46 Dose: 250 mls/hr Documented by: Levetiracetam (Keppra Oral Solution -) 750 mg GT DAILY [facility] Last Admin: 08/18/19 09:59 Dose: 750 mg Documented by: Mupirocin (Bactroban Ointment (For Decolonization) -) 1 applic NS BID [facility] Stop: 08/19/19 21:59 Last Admin: 08/18/19 09:46 Dose: 1 applic Documented by: Pantoprazole Sodium (Protonix Iv) 40 mg IVPUSH DAILY [facility] Last Admin: 08/18/19 09:46 Dose: 40 mg Documented by: Prednisone (Deltasone -) 10 mg PO DAILY [facility] - Objective Vital Signs: Vital Signs Temperature 98.2 F 08/18/19 08:00 Pulse Rate 94 H 08/18/19 14:00 Respiratory Rate 24 H 08/18/19 16:07 Blood Pressure 113/69 08/18/19 14:00 O2 Sat by Pulse Oximetry (%) 99 08/18/19 10:00 Constitutional: Yes: Other Eyes: Yes: Conjunctiva Clear HENT: Yes: Atraumatic, Normocephalic Neck: Yes: Supple, Other (intubated) Respiratory: Yes: Diminished, Rhonchi Gastrointestinal: Yes: Normal Bowel Sounds Genitourinary: Yes: Christy Present Edema: LLE: Trace Neurological: Yes: Unresponsive Labs: CBC, BMP 08/18/19 07:00 08/18/19 07:00 INR, PTT INR 1.03 (0.83-1.09) 08/17/19 13:00 Problem List - Problems (1) Septic shock Assessment/Plan: ID consult apperciated blood cultures mrsa urine culture negative IV antbx IVF resus c.diff neg Accepted for transfer to [facility] ICU- building maintenance superintendent Dr. Georges- that was as of saturday Code(s): A41.9 - SEPSIS, UNSPECIFIED ORGANISM; R65.21 - SEVERE SEPSIS WITH SEPTIC SHOCK (2) Anemia Assessment/Plan: s/p transfusion receives procit as outpatient stool occult negative iv ppi monitor cbc Code(s): D64.9 - ANEMIA, UNSPECIFIED (3) PNA (pneumonia) Assessment/Plan: Pulm eval appreciated IV antbx appreciated chest xray noted ct chest noted respiratory panel still pending at this time. IV antbx Code(s): J18.9 - PNEUMONIA, UNSPECIFIED ORGANISM (4) Renal failure Assessment/Plan: nephrology eval appreciated renal transplant patient ARF left avf Code(s): N19 - UNSPECIFIED KIDNEY FAILURE (5) Renal transplant recipient Assessment/Plan: transplant physician Dr. Valdez at [facility] prednisone outpatient [facility], continued outpatient prednisone regimen Code(s): Z94.0 - KIDNEY TRANSPLANT STATUS (6) Chronic respiratory failure with hypoxia and hypercapnia Assessment/Plan: pulm eval appreciated mechanically ventilated cont vent settings per ICU[facility] Code(s): J96.11 - CHRONIC RESPIRATORY FAILURE WITH HYPOXIA; J96.12 - CHRONIC RESPIRATORY FAILURE WITH HYPERCAPNIA (7) HTN (hypertension) Assessment/Plan: hold home metoprolol tartrate off pressors Code(s): I10 - ESSENTIAL (PRIMARY) HYPERTENSION (8) CHF (congestive heart failure) Assessment/Plan: I & O monitor fluid status Code(s): I50.9 - HEART FAILURE, UNSPECIFIED Qualifiers: Heart failure chronicity: chronic (9) Seizure disorder Assessment/Plan: cont keppra Code(s): G40.909 - EPILEPSY, UNSP, NOT INTRACTABLE, WITHOUT STATUS EPILEPTICUS
--- NOTE | 2019-08-18 17:54 | PN ---
Progress Note, Physician History of Present Illness: Pt remains in the ICU. She is off of pressors. She is not very responsive. - Current Medication List Current Medications: Active Medications Chlorhexidine Gluconate (Hibiclens For Decolonization -) 1 applic TP HS [facility] Last Admin: 08/17/19 22:18 Dose: 1 applic Documented by: Collagenase (Santyl -) 1 applic TP DAILY [facility]; Protocol Last Admin: 08/18/19 09:47 Dose: 1 applic Documented by: Piperacillin Sod/Tazobactam (Sod 2.25 gm/ Dextrose) 50 mls @ 100 mls/hr IVPB Q8H-IV [facility]; Protocol Last Admin: 08/18/19 17:41 Dose: 100 mls/hr Documented by: Azithromycin (Zithromax 500mg Ivpb (Pre-Docked)) 500 mg in 250 mls @ 250 mls/hr IVPB DAILY [facility] Last Admin: 08/18/19 09:46 Dose: 250 mls/hr Documented by: Levetiracetam (Keppra Oral Solution -) 750 mg GT DAILY [facility] Last Admin: 08/18/19 09:59 Dose: 750 mg Documented by: Mupirocin (Bactroban Ointment (For Decolonization) -) 1 applic NS BID [facility] Stop: 08/19/19 21:59 Last Admin: 08/18/19 09:46 Dose: 1 applic Documented by: Pantoprazole Sodium (Protonix Iv) 40 mg IVPUSH DAILY [facility] Last Admin: 08/18/19 09:46 Dose: 40 mg Documented by: Prednisone (Deltasone -) 10 mg PO DAILY [facility] - Objective Vital Signs: Vital Signs Temperature 98.2 F 08/18/19 08:00 Pulse Rate 101 H 08/18/19 16:00 Respiratory Rate 24 H 08/18/19 16:07 Blood Pressure 135/72 08/18/19 16:00 O2 Sat by Pulse Oximetry (%) 99 08/18/19 10:00 Constitutional: Yes: Calm Eyes: Yes: Conjunctiva Clear HENT: Yes: Atraumatic Neck: Yes: Supple Cardiovascular: Yes: S1, S2 Respiratory: Yes: Mechanically Ventilated Gastrointestinal: Yes: Soft Musculoskeletal: Yes: Muscle Weakness Neurological: Yes: Lethargy Labs: CBC, BMP 08/18/19 07:00 08/18/19 07:00 INR, PTT INR 1.03 (0.83-1.09) 08/17/19 13:00 Problem List - Problems (1) CHF (congestive heart failure) Code(s): I50.9 - HEART FAILURE, UNSPECIFIED Qualifiers: Heart failure chronicity: chronic (2) Renal failure Code(s): N19 - UNSPECIFIED KIDNEY FAILURE (3) Renal transplant recipient Code(s): Z94.0 - KIDNEY TRANSPLANT STATUS Assessment/Plan Current Medications Generic Name Dose Route Start Last Admin Trade Name Josemanuel PRN Reason Stop Dose Admin Chlorhexidine Gluconate 1 applic 08/14/19 22:00 08/17/19 22:18 Hibiclens For Decolonization - TP 1 applic HS [facility] Administration Collagenase 1 applic 08/16/19 10:00 08/18/19 09:47 Santyl - TP 1 applic DAILY [facility] Administration Protocol Piperacillin Sod/Tazobactam 50 mls @ 100 mls/hr 08/14/19 18:00 08/18/19 17:41 Sod 2.25 gm/ Dextrose IVPB 100 mls/hr Q8H-IV [facility] Administration Protocol Azithromycin 500 mg in 250 mls @ 250 mls/hr 08/15/19 10:00 08/18/19 09:46 Zithromax 500mg Ivpb (Pre-Docked) IVPB 250 mls/hr DAILY [facility] Administration Levetiracetam 750 mg 08/15/19 10:00 08/18/19 09:59 Keppra Oral Solution - GT 750 mg DAILY [facility] Administration Mupirocin 1 applic 08/14/19 22:00 08/18/19 09:46 Bactroban Ointment (For Decolonization) - NS 08/19/19 21:59 1 applic BID [facility] Administration Pantoprazole Sodium 40 mg 08/15/19 10:00 08/18/19 09:46 Protonix Iv IVPUSH 40 mg DAILY [facility] Administration Prednisone 10 mg 08/19/19 10:00 Deltasone - PO DAILY [facility] Impression 1. GORDON 2. kidney transplant - maintained with prednisone 10 mg daily 3. chronic resp failure with trache 4. peg tube 5. r/o covid19 6. sepsis 7. anemia 8. hypotension 9. shock 10. lactic acidosis 11. CKD Plan - replace potassium - monitor lytes - vent support - renal function stable - follow covid 19 results - discussed with icu team - pt on prednisone 10 as outpt for rejection, she was taken off of cellcept and tacrolimus in the past and they are not to be restarted per the transplant team
[2019-08-18] MEDS: CHLORHEXIDINE GLUCONATE 4% CLEANSER FOR DECOLONIZATION TP SCH (21:02)
[2019-08-19] MEDS: PIPERACILLIN/TAZOB 2.25 GM 2.25 GM in DEXTROSE 5%-WATER - 50 ML IVPB SCH ×3 (02:40→17:24)
[2019-08-19] MEDS ORDERED: DEXTROSE 5%-WATER - 50 ML IVPB ONE ×3 (02:44→16:27)
[2019-08-19] MEDS ORDERED: PIPERACILLIN/TAZOBACTAM 2.25 GM VIAL IVPB ONE ×3 (02:44→16:27)
[2019-08-19] MEDS ORDERED: PT OWN MED DRAWER 7, Y5N ONE (09:19)
[2019-08-19] MEDS: levETIRAcetam 500 MG/5 ML ORAL SOLUTION (UNIT-DOSE CUPS) GT SCH (09:21)
[2019-08-19] MEDS: PANTOPRAZOLE SODIUM 40 MG VIAL IVPUSH SCH (09:21)
[2019-08-19] MEDS: MUPIROCIN 2% TOPICAL OINTMENT FOR DECOLONIZATION NS SCH (09:22)
[2019-08-19] MEDS: AZITHROMYCIN IVPB 500 MG/250 ML BAG IVPB SCH (09:22)
[2019-08-19] MEDS: predniSONE 10 MG TABLET (UD) PO SCH (09:22)
[2019-08-19] MEDS: COLLAGENASE CLOSTRIDIUM HIST. 30 GRAMS TUBE TP SCH (09:23)
--- NOTE | 2019-08-19 13:00 | PN ---
Progress Note (short form) - Note Progress Note: PULMONARY/CCM Pt seen and examined in the ICU. Vented, poorly responsive. No pressors. Vital Signs Period Temp Pulse Resp BP Sys/Huff Pulse Ox Last 24 Hr 97.6 F-98.4 F 94-116 18-32 103-148/62-76 99-100 Intake & Output 08/16/19 08/17/19 08/18/19 08/19/19 23:59 23:59 23:59 23:59 Intake Total 2404 2720 340 1426 Output Total 950 1725 1750 300 Balance 1454 995 -1410 1126 Weight 44.906 kg 24.993 kg Gen: vented, poorly responsive, less tachypneic Heart: RRR Lung: scattered rhonchi Abd: soft, nontender Ext: + edema CBC, BMP 08/18/19 07:00 08/18/19 07:00 Active Medications Chlorhexidine Gluconate (Hibiclens For Decolonization -) 1 applic TP HS [facility] Last Admin: 08/18/19 21:02 Dose: 1 applic Documented by: Collagenase (Santyl -) 1 applic TP DAILY [facility]; Protocol Last Admin: 08/19/19 09:23 Dose: 1 applic Documented by: Piperacillin Sod/Tazobactam (Sod 2.25 gm/ Dextrose) 50 mls @ 100 mls/hr IVPB Q8H-IV [facility]; Protocol Last Admin: 08/19/19 09:21 Dose: 100 mls/hr Documented by: Azithromycin (Zithromax 500mg Ivpb (Pre-Docked)) 500 mg in 250 mls @ 250 mls/hr IVPB DAILY [facility] Last Admin: 08/19/19 09:22 Dose: 250 mls/hr Documented by: Levetiracetam (Keppra Oral Solution -) 750 mg GT DAILY [facility] Last Admin: 08/19/19 09:21 Dose: 750 mg Documented by: Mupirocin (Bactroban Ointment (For Decolonization) -) 1 applic NS BID [facility] Stop: 08/19/19 21:59 Last Admin: 08/19/19 09:22 Dose: 1 applic Documented by: Pantoprazole Sodium (Protonix Iv) 40 mg IVPUSH DAILY [facility] Last Admin: 08/19/19 09:21 Dose: 40 mg Documented by: Prednisone (Deltasone -) 10 mg PO DAILY [facility] Last Admin: 08/19/19 09:22 Dose: 10 mg Documented by: A/P Acute on Chronic Hypoxic Respiratory Failure Pneumonia Septic Shock Acute on Chronic Renal Failure h/o Renal Transplant Lactic Acidosis Hyponatremia CHF HTN Anemia - continue antibiotics - f/u cultures, serologies - off pressors, maintain MAP >65 - monitor urine output, creatinine - O2 to keep SpO2 >90% - replete lytes - home dose prednisone - continue assist control for now - DVT/GI prophylaxis - can monitor on vent floor - low clinical suspicion for COVID-19
[2019-08-19 13:39] LABS: HEMATOCRIT 31.2 % (32.4-45.2); MEAN CELL VOLUME 96.9 fl (80-96); MEAN PLT VOLUME 7.9 fl (7.5-11.1); PLATELET COUNT 125 K/MM3 (134-434); RBC 3.22 M/mm3 (3.60-5.2); RDW 18.1 % (11.6-15.6); WHITE BLOOD COUNT 26.8 K/mm3 (4.0-10.0)
[2019-08-19 14:02] LABS: ALBUMIN 1.8 g/dl (3.4-5.0); BILIRUBIN,TOTAL 0.4 mg/dL (0.2-1); CALCIUM 7.4 mg/dL (8.5-10.1); CREATININE 3.3 mg/dL (0.55-1.3); MAGNESIUM 2.4 mg/dL (1.8-2.4); PHOSPHOROUS 4.8 mg/dL (2.5-4.9); POTASSIUM 3.4 mmol/L (3.5-5.1); TOT PROT 5.6 g/dl (6.4-8.2)
[2019-08-19] MEDS ORDERED: POTASSIUM CHLORIDE TABS 20 MEQ TABLET.ER (FP) PO ONE (14:04)
[2019-08-19 14:28] LABS: ANISOCYTOSIS 1+; MACROCYTOSIS 1+; OVALOCYTE 1+; PLATELET ESTIMATE DECREASED
[2019-08-19] MEDS ORDERED: POTASSIUM CHLORIDE ORAL LIQUID 20 MEQ/15 ML PO ONE (14:30)
--- NOTE | 2019-08-19 15:05 | PN ---
Progress Note, Physician History of Present Illness: Pt remains in ICU. Renal function stable. COVID 19 pending. - Current Medication List Current Medications: Active Medications Chlorhexidine Gluconate (Hibiclens For Decolonization -) 1 applic TP HS [facility] Last Admin: 08/18/19 21:02 Dose: 1 applic Documented by: Collagenase (Santyl -) 1 applic TP DAILY [facility]; Protocol Last Admin: 08/19/19 09:23 Dose: 1 applic Documented by: Piperacillin Sod/Tazobactam (Sod 2.25 gm/ Dextrose) 50 mls @ 100 mls/hr IVPB Q8H-IV [facility]; Protocol Last Admin: 08/19/19 09:21 Dose: 100 mls/hr Documented by: Azithromycin (Zithromax 500mg Ivpb (Pre-Docked)) 500 mg in 250 mls @ 250 mls/hr IVPB DAILY [facility] Last Admin: 08/19/19 09:22 Dose: 250 mls/hr Documented by: Levetiracetam (Keppra Oral Solution -) 750 mg GT DAILY [facility] Last Admin: 08/19/19 09:21 Dose: 750 mg Documented by: Mupirocin (Bactroban Ointment (For Decolonization) -) 1 applic NS BID [facility] Stop: 08/19/19 21:59 Last Admin: 08/19/19 09:22 Dose: 1 applic Documented by: Pantoprazole Sodium (Protonix Iv) 40 mg IVPUSH DAILY [facility] Last Admin: 08/19/19 09:21 Dose: 40 mg Documented by: Prednisone (Deltasone -) 10 mg PO DAILY [facility] Last Admin: 08/19/19 09:22 Dose: 10 mg Documented by: - Objective Vital Signs: Vital Signs Temperature 98.4 F 08/19/19 14:00 Pulse Rate 107 H 08/19/19 14:00 Respiratory Rate 27 H 08/19/19 14:00 Blood Pressure 121/62 08/19/19 14:00 O2 Sat by Pulse Oximetry (%) 100 08/19/19 09:00 Cardiovascular: Yes: S1, S2 Respiratory: Yes: Mechanically Ventilated Gastrointestinal: Yes: Other (peg) Genitourinary: Yes: Incontinence Musculoskeletal: Yes: Muscle Weakness Neurological: Yes: Lethargy Labs: CBC, BMP 08/19/19 12:52 08/19/19 12:52 INR, PTT INR 1.03 (0.83-1.09) 08/17/19 13:00 Problem List - Problems (1) CHF (congestive heart failure) Code(s): I50.9 - HEART FAILURE, UNSPECIFIED Qualifiers: Heart failure chronicity: chronic (2) Renal failure Code(s): N19 - UNSPECIFIED KIDNEY FAILURE (3) Renal transplant recipient Code(s): Z94.0 - KIDNEY TRANSPLANT STATUS Assessment/Plan Current Medications Generic Name Dose Route Start Last Admin Trade Name Freq PRN Reason Stop Dose Admin Chlorhexidine Gluconate 1 applic 08/14/19 22:00 08/18/19 21:02 Hibiclens For Decolonization - TP 1 applic HS [facility] Administration Collagenase 1 applic 08/16/19 10:00 08/19/19 09:23 Santyl - TP 1 applic DAILY [facility] Administration Protocol Piperacillin Sod/Tazobactam 50 mls @ 100 mls/hr 08/14/19 18:00 08/19/19 09:21 Sod 2.25 gm/ Dextrose IVPB 100 mls/hr Q8H-IV [facility] Administration Protocol Azithromycin 500 mg in 250 mls @ 250 mls/hr 08/15/19 10:00 08/19/19 09:22 Zithromax 500mg Ivpb (Pre-Docked) IVPB 250 mls/hr DAILY [facility] Administration Levetiracetam 750 mg 08/15/19 10:00 08/19/19 09:21 Keppra Oral Solution - GT 750 mg DAILY [facility] Administration Mupirocin 1 applic 08/14/19 22:00 08/19/19 09:22 Bactroban Ointment (For Decolonization) - NS 08/19/19 21:59 1 applic BID [facility] Administration Pantoprazole Sodium 40 mg 08/15/19 10:00 08/19/19 09:21 Protonix Iv IVPUSH 40 mg DAILY [facility] Administration Prednisone 10 mg 08/19/19 10:00 08/19/19 09:22 Deltasone - PO 10 mg DAILY [facility] Administration Impression 1. GORDON 2. kidney transplant - maintained with prednisone 10 mg daily 3. chronic resp failure with trache 4. peg tube 5. r/o covid19 6. sepsis 7. anemia 8. hypotension 9. shock 10. lactic acidosis 11. CKD Plan - resume home dose prednisone - monitor renal function - replace lytes - vent support - off of cellcept and tacrolimus - follow covid19
--- NOTE | 2019-08-19 15:11 | PN ---
Progress Note, Physician Chief Complaint: hypotension and fevers History of Present Illness: 63 year old female with PMH ESRD, s/p renal transplant, left avf, anemia, htn, chf, trach/peg presents to the ED with hypotension and fevers, admitted to ICU - Current Medication List Current Medications: Active Medications Chlorhexidine Gluconate (Hibiclens For Decolonization -) 1 applic TP HS [facility] Last Admin: 08/18/19 21:02 Dose: 1 applic Documented by: Collagenase (Santyl -) 1 applic TP DAILY [facility]; Protocol Last Admin: 08/19/19 09:23 Dose: 1 applic Documented by: Piperacillin Sod/Tazobactam (Sod 2.25 gm/ Dextrose) 50 mls @ 100 mls/hr IVPB Q8H-IV [facility]; Protocol Last Admin: 08/19/19 09:21 Dose: 100 mls/hr Documented by: Azithromycin (Zithromax 500mg Ivpb (Pre-Docked)) 500 mg in 250 mls @ 250 mls/hr IVPB DAILY [facility] Last Admin: 08/19/19 09:22 Dose: 250 mls/hr Documented by: Levetiracetam (Keppra Oral Solution -) 750 mg GT DAILY [facility] Last Admin: 08/19/19 09:21 Dose: 750 mg Documented by: Mupirocin (Bactroban Ointment (For Decolonization) -) 1 applic NS BID [facility] Stop: 08/19/19 21:59 Last Admin: 08/19/19 09:22 Dose: 1 applic Documented by: Pantoprazole Sodium (Protonix Iv) 40 mg IVPUSH DAILY [facility] Last Admin: 08/19/19 09:21 Dose: 40 mg Documented by: Prednisone (Deltasone -) 10 mg PO DAILY [facility] Last Admin: 08/19/19 09:22 Dose: 10 mg Documented by: - Objective Vital Signs: Vital Signs Temperature 98.4 F 08/19/19 14:00 Pulse Rate 107 H 08/19/19 14:00 Respiratory Rate 27 H 08/19/19 14:00 Blood Pressure 121/62 08/19/19 14:00 O2 Sat by Pulse Oximetry (%) 100 08/19/19 09:00 Constitutional: Yes: Other HENT: Yes: Atraumatic, Normocephalic Neck: Yes: Supple, Other (trach, mechanically ventilated) Cardiovascular: Yes: Tachycardia Respiratory: Yes: Diminished Gastrointestinal: Yes: Other (peg) ...Rectal Exam: Yes: Other (flexiseal) Genitourinary: Yes: Christy Present Edema: LUE: 1+ Neurological: Yes: Unresponsive Labs: CBC, BMP 08/19/19 12:52 08/19/19 12:52 INR, PTT INR 1.03 (0.83-1.09) 08/17/19 13:00 Problem List - Problems (1) Septic shock Assessment/Plan: ID consult apperciated WBC jump to 26.8 blood cultures mrsa from 08/13, sputum 08/13 mrsa & pseudomonas, 08/15 positive pending, 08/18 pending urine culture negative IV antbx IVF resus c.diff neg vanco trough pending Accepted for transfer to [facility]- 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- that was as of saturday Code(s): A41.9 - SEPSIS, UNSPECIFIED ORGANISM; R65.21 - SEVERE SEPSIS WITH SEPTIC SHOCK (2) Anemia Assessment/Plan: s/p transfusion receives procit as outpatient stool occult negative iv ppi monitor cbc Code(s): D64.9 - ANEMIA, UNSPECIFIED (3) PNA (pneumonia) Assessment/Plan: Pulm eval appreciated IV antbx appreciated chest xray noted ct chest noted respiratory panel still pending at this time, covid pending x5 days IV antbx Code(s): J18.9 - PNEUMONIA, UNSPECIFIED ORGANISM (4) Renal failure Assessment/Plan: nephrology eval appreciated renal transplant patient ARF left avf Code(s): N19 - UNSPECIFIED KIDNEY FAILURE (5) Renal transplant recipient Assessment/Plan: transplant physician Dr. Valdez at [facility] prednisone outpatient [facility], continued outpatient prednisone regimen Code(s): Z94.0 - KIDNEY TRANSPLANT STATUS (6) Chronic respiratory failure with hypoxia and hypercapnia Assessment/Plan: pulm eval appreciated mechanically ventilated cont vent settings per ICU- might be transferred to [facility] floor Code(s): J96.11 - CHRONIC RESPIRATORY FAILURE WITH HYPOXIA; J96.12 - CHRONIC RESPIRATORY FAILURE WITH HYPERCAPNIA (7) HTN (hypertension) Assessment/Plan: hold home metoprolol tartrate off pressors Code(s): I10 - ESSENTIAL (PRIMARY) HYPERTENSION (8) CHF (congestive heart failure) Assessment/Plan: I & O monitor fluid status daily weights unreliable- came in at 95 lb, most recent weight 55 lb Code(s): I50.9 - HEART FAILURE, UNSPECIFIED Qualifiers: Heart failure chronicity: chronic (9) Seizure disorder Assessment/Plan: cont cedric Code(s): G40.909 - EPILEPSY, UNSP, NOT INTRACTABLE, WITHOUT STATUS EPILEPTICUS
[2019-08-19] MEDS: CHLORHEXIDINE GLUCONATE 4% CLEANSER FOR DECOLONIZATION TP SCH (21:46)
[2019-08-20] MEDS ORDERED: PIPERACILLIN/TAZOBACTAM 2.25 GM VIAL IVPB ONE ×3 (00:16→16:36)
[2019-08-20] MEDS ORDERED: DEXTROSE 5%-WATER - 50 ML IVPB ONE ×3 (00:16→16:36)
[2019-08-20] MEDS: PIPERACILLIN/TAZOB 2.25 GM 2.25 GM in DEXTROSE 5%-WATER - 50 ML IVPB SCH ×3 (02:54→17:00)
[2019-08-20] MEDS ORDERED: PT OWN MED DRAWER 7, Y5N ONE (08:42)
[2019-08-20] MEDS: levETIRAcetam 500 MG/5 ML ORAL SOLUTION (UNIT-DOSE CUPS) GT SCH (09:01)
[2019-08-20] MEDS: COLLAGENASE CLOSTRIDIUM HIST. 30 GRAMS TUBE TP SCH (09:01)
[2019-08-20] MEDS: PANTOPRAZOLE SODIUM 40 MG VIAL IVPUSH SCH (09:01)
[2019-08-20] MEDS: AZITHROMYCIN IVPB 500 MG/250 ML BAG IVPB SCH (09:01)
[2019-08-20] MEDS: predniSONE 10 MG TABLET (UD) PO SCH (09:01)
[2019-08-20] MEDS ORDERED: SODIUM BICARBONATE 8.4% 50 MEQ/50 ML DISP.SYRIN IVPUSH ONE ×3 (10:36→16:42)
[2019-08-20] MEDS ORDERED: SODIUM BICARBONATE 4.2% 5 MEQ/10 ML DISP.SYRIN IVPUSH ONE ×2 (10:37→16:37)
--- NOTE | 2019-08-20 11:47 | PN ---
Progress Note (short form) - Note Progress Note: PULMONARY/CCM Pt seen and examined in the ICU. Vented, poorly responsive. No pressors. No fevers. Vital Signs Period Temp Pulse Resp BP Sys/Huff Pulse Ox Last 24 Hr 98.4 F-99.4 F 79-125 22-41 110-135/62-75 93-100 Gen: vented, poorly responsive, less tachypneic Heart: RRR Lung: scattered rhonchi Abd: soft, nontender Ext: + edema CBC, BMP 08/19/19 12:52 08/19/19 12:52 Active Medications Chlorhexidine Gluconate (Hibiclens For Decolonization -) 1 applic TP HS [facility] Last Admin: 08/19/19 21:46 Dose: 1 applic Documented by: Collagenase (Santyl -) 1 applic TP DAILY [facility]; Protocol Last Admin: 08/20/19 09:01 Dose: 1 applic Documented by: Piperacillin Sod/Tazobactam (Sod 2.25 gm/ Dextrose) 50 mls @ 100 mls/hr IVPB Q8H-IV [facility]; Protocol Last Admin: 08/20/19 09:02 Dose: 100 mls/hr Documented by: Azithromycin (Zithromax 500mg Ivpb (Pre-Docked)) 500 mg in 250 mls @ 250 mls/hr IVPB DAILY [facility] Last Admin: 08/20/19 09:01 Dose: 250 mls/hr Documented by: Levetiracetam (Keppra Oral Solution -) 750 mg GT DAILY [facility] Last Admin: 08/20/19 09:01 Dose: 750 mg Documented by: Pantoprazole Sodium (Protonix Iv) 40 mg IVPUSH DAILY [facility] Last Admin: 08/20/19 09:01 Dose: 40 mg Documented by: Prednisone (Deltasone -) 10 mg PO DAILY [facility] Last Admin: 08/20/19 09:01 Dose: 10 mg Documented by: Sodium Bicarbonate (Sodium Bicarbonate 8.4% -) 50 meq IVPUSH ONCE ONE Stop: 08/20/19 16:43 A/P Acute on Chronic Hypoxic Respiratory Failure Pneumonia Septic Shock Acute on Chronic Renal Failure h/o Renal Transplant Lactic Acidosis Hyponatremia CHF HTN Anemia - continue antibiotics - f/u cultures, serologies - off pressors, maintain MAP >65 - monitor urine output, creatinine - O2 to keep SpO2 >90% - replete lytes - home dose prednisone - continue assist control for now - DVT/GI prophylaxis - can monitor on vent floor - low clinical suspicion for COVID-19, can monitor on vent floor without negative pressure
--- NOTE | 2019-08-20 13:07 | PN ---
Progress Note, Physician Chief Complaint: Acute on Chronic Hypoxic Respiratory Failure Pneumonia Septic Shock Acute on Chronic Renal Failure h/o Renal Transplant Lactic Acidosis CHF HTN Anemia History of Present Illness: Mechanically vented to trach Awaiting COVID serology - Current Medication List Current Medications: Active Medications Chlorhexidine Gluconate (Hibiclens For Decolonization -) 1 applic TP HS [facility] Last Admin: 08/19/19 21:46 Dose: 1 applic Documented by: Collagenase (Santyl -) 1 applic TP DAILY [facility]; Protocol Last Admin: 08/20/19 09:01 Dose: 1 applic Documented by: Piperacillin Sod/Tazobactam (Sod 2.25 gm/ Dextrose) 50 mls @ 100 mls/hr IVPB Q8 H-IV [facility]; Protocol Last Admin: 08/20/19 09:02 Dose: 100 mls/hr Documented by: Azithromycin (Zithromax 500mg Ivpb (Pre-Docked)) 500 mg in 250 mls @ 250 mls/hr IVPB DAILY [facility] Last Admin: 08/20/19 09:01 Dose: 250 mls/hr Documented by: Levetiracetam (Keppra Oral Solution -) 750 mg GT DAILY [facility] Last Admin: 08/20/19 09:01 Dose: 750 mg Documented by: Pantoprazole Sodium (Protonix Iv) 40 mg IVPUSH DAILY [facility] Last Admin: 08/20/19 09:01 Dose: 40 mg Documented by: Prednisone (Deltasone -) 10 mg PO DAILY [facility] Last Admin: 08/20/19 09:01 Dose: 10 mg Documented by: Sodium Bicarbonate (Sodium Bicarbonate 8.4% -) 50 meq IVPUSH ONCE ONE Stop: 08/20/19 16:43 - Objective Vital Signs: Vital Signs Temperature 99.4 F 08/20/19 10:00 Pulse Rate 111 H 08/20/19 12:27 Respiratory Rate 24 H 08/20/19 12:27 Blood Pressure 115/71 08/20/19 12:00 O2 Sat by Pulse Oximetry (%) 94 L 08/20/19 12:27 Constitutional: Yes: No Distress, Calm, Thin Cardiovascular: Yes: Tachycardia Respiratory: Yes: Mechanically Ventilated, Rhonchi (diffuse), Tachypnea Gastrointestinal: Yes: Normal Bowel Sounds, Soft Genitourinary: Yes: Christy Present Extremities: Yes: Other (generalized atrophy) Edema: Yes (BLUE) Peripheral Pulses WNL: Yes Neurological: Yes: Pre-Existing Deficit Labs: CBC, BMP 08/19/19 12:52 08/19/19 12:52 INR, PTT INR 1.03 (0.83-1.09) 08/17/19 13:00 Problem List - Problems (1) Anemia Assessment/Plan: -multifactorial -H/H stable -Iron profile+ B12 normal -TSH Low-sick thyroid syndrome? -Stool OB negative -Received multiple transfusions this admission -Monitor trend -Hold any AC Problems reviewed: Yes Code(s): D64.9 - ANEMIA, UNSPECIFIED (2) Chronic respiratory failure with hypoxia and hypercapnia Assessment/Plan: -On mechanical vent -Pulmonary on board -Bronchodilators -Rapid influenza negative -Viral serology pending including COVID Problems reviewed: Yes Code(s): J96.11 - CHRONIC RESPIRATORY FAILURE WITH HYPOXIA; J96.12 - CHRONIC RESPIRATORY FAILURE WITH HYPERCAPNIA (3) Renal failure Problems reviewed: Yes Code(s): N19 - UNSPECIFIED KIDNEY FAILURE (4) Renal transplant recipient Assessment/Plan: -Starte on PO Prednisone- home dosage -Nephrology on board Problems reviewed: Yes Code(s): Z94.0 - KIDNEY TRANSPLANT STATUS (5) Sepsis Assessment/Plan: -Lactic acidosis resolved -IV abx -IVF -ID on board -Cultures: Microbiology 08/19/19 14:26 Blood - Peripheral Venous Blood Culture - Preliminary NO GROWTH OBTAINED AFTER 24 HOURS, INCUBATION TO CONTINUE FOR 4 DAYS. 08/19/19 14:26 Blood - Peripheral Venous Blood Culture - Preliminary NO GROWTH OBTAINED AFTER 24 HOURS, INCUBATION TO CONTINUE FOR 4 DAYS. 08/16/19 13:32 Blood - Peripheral Venous Blood Culture - Preliminary NO GROWTH OBTAINED AFTER 96 HOURS, INCUBATION TO CONTINUE FOR 1 DAYS. 08/16/19 13:32 Blood - Peripheral Venous Blood Culture - Preliminary Pending Organism 08/14/19 14:50 Blood - Central Line Blood Culture - Final Mr S Aureus 08/14/19 14:30 Blood - Central Line Blood Culture - Final Mr S Aureus 08/14/19 19:03 Sputum - Endotrachea Suction/Ventilator Gram Stain - Final 08/14/19 19:03 Sputum - Endotrachea Suction/Ventilator Sputum Culture - Final Mr S Aureus Pseudomonas Aeruginosa 08/14/19 00:25 Urine - Urine - Catheterized Urine Culture - Final NO GROWTH OBTAINED 08/14/19 14:50 Urine - Urine Christy Legionella Antigen - Final 08/14/19 14:50 Urine - Urine Christy Streptococcus pneumoniae Antigen (M - Final 08/14/19 00:25 Stool Clostridioides difficile Antigen - Final 08/14/19 00:25 Stool Clostridioides difficile Toxin Assay - Final -Afebrile Problems reviewed: Yes Code(s): A41.9 - SEPSIS, UNSPECIFIED ORGANISM Assessment/Plan See problem list
--- NOTE | 2019-08-20 13:25 | PN ---
Progress Note, Physician History of Present Illness: Pt remains in the ICU. She remains vented. She is not very responsive. - Current Medication List Current Medications: Active Medications Chlorhexidine Gluconate (Hibiclens For Decolonization -) 1 applic TP HS [facility] Last Admin: 08/19/19 21:46 Dose: 1 applic Documented by: Collagenase (Santyl -) 1 applic TP DAILY [facility]; Protocol Last Admin: 08/20/19 09:01 Dose: 1 applic Documented by: Piperacillin Sod/Tazobactam (Sod 2.25 gm/ Dextrose) 50 mls @ 100 mls/hr IVPB Q8H-IV [facility]; Protocol Last Admin: 08/20/19 09:02 Dose: 100 mls/hr Documented by: Azithromycin (Zithromax 500mg Ivpb (Pre-Docked)) 500 mg in 250 mls @ 250 mls/hr IVPB DAILY [facility] Last Admin: 08/20/19 09:01 Dose: 250 mls/hr Documented by: Levetiracetam (Keppra Oral Solution -) 750 mg GT DAILY [facility] Last Admin: 08/20/19 09:01 Dose: 750 mg Documented by: Pantoprazole Sodium (Protonix Iv) 40 mg IVPUSH DAILY [facility] Last Admin: 08/20/19 09:01 Dose: 40 mg Documented by: Prednisone (Deltasone -) 10 mg PO DAILY [facility] Last Admin: 08/20/19 09:01 Dose: 10 mg Documented by: Sodium Bicarbonate (Sodium Bicarbonate 8.4% -) 50 meq IVPUSH ONCE ONE Stop: 08/20/19 16:43 - Objective Vital Signs: Vital Signs Temperature 99.4 F 08/20/19 10:00 Pulse Rate 111 H 08/20/19 12:27 Respiratory Rate 24 H 08/20/19 12:27 Blood Pressure 115/71 08/20/19 12:00 O2 Sat by Pulse Oximetry (%) 94 L 08/20/19 12:27 Constitutional: Yes: Calm Cardiovascular: Yes: S1, S2 Respiratory: Yes: Mechanically Ventilated Gastrointestinal: Yes: Other (peg) Genitourinary: Yes: Christy Present Edema: Yes Edema: LLE: 1+, RLE: 1+ Neurological: Yes: Lethargy Labs: CBC, BMP 08/19/19 12:52 08/19/19 12:52 INR, PTT INR 1.03 (0.83-1.09) 08/17/19 13:00 Problem List - Problems (1) CHF (congestive heart failure) Code(s): I50.9 - HEART FAILURE, UNSPECIFIED Qualifiers: Heart failure chronicity: chronic (2) Renal failure Code(s): N19 - UNSPECIFIED KIDNEY FAILURE (3) Renal transplant recipient Code(s): Z94.0 - KIDNEY TRANSPLANT STATUS Assessment/Plan Current Medications Generic Name Dose Route Start Last Admin Trade Name Fredylon PRN Reason Stop Dose Admin Chlorhexidine Gluconate 1 applic 08/14/19 22:00 08/19/19 21:46 Hibiclens For Decolonization - TP 1 applic HS [facility] Administration Collagenase 1 applic 08/16/19 10:00 08/20/19 09:01 Santyl - TP 1 applic DAILY [facility] Administration Protocol Piperacillin Sod/Tazobactam 50 mls @ 100 mls/hr 08/14/19 18:00 08/20/19 09:02 Sod 2.25 gm/ Dextrose IVPB 100 mls/hr Q8H-IV [facility] Administration Protocol Azithromycin 500 mg in 250 mls @ 250 mls/hr 08/15/19 10:00 08/20/19 09:01 Zithromax 500mg Ivpb (Pre-Docked) IVPB 250 mls/hr DAILY [facility] Administration Levetiracetam 750 mg 08/15/19 10:00 08/20/19 09:01 Keppra Oral Solution - GT 750 mg DAILY [facility] Administration Pantoprazole Sodium 40 mg 08/15/19 10:00 08/20/19 09:01 Protonix Iv IVPUSH 40 mg DAILY [facility] Administration Prednisone 10 mg 08/19/19 10:00 08/20/19 09:01 Deltasone - PO 10 mg DAILY [facility] Administration Sodium Bicarbonate 50 meq 08/20/19 16:42 Sodium Bicarbonate 8.4% - IVPUSH 08/20/19 16:43 ONCE ONE Impression 1. GORDON 2. kidney transplant - maintained with prednisone 10 mg daily 3. chronic resp failure with trache 4. peg tube 5. r/o covid19 6. sepsis 7. anemia 8. hypotension 9. shock 10. lactic acidosis 11. CKD Plan - check labs if possible - cont bicarb - potassium replaced yesterday - follow covid panel - vent support - off of cellcept and tacrolimus
[2019-08-20 15:37] LABS: BASO % 0.1 % (0-2.0); EOS % 0.3 % (0-4.5); HEMATOCRIT 27.9 % (32.4-45.2); LYMPH % 2.5 % (8-40); MCH 30.9 pg (25.7-33.7); MCHC 32.2 g/dl (32.0-36.0); MEAN PLT VOLUME 7.9 fl (7.5-11.1); MONO % 1.6 % (3.8-10.2); NEUT % 95.5 % (42.8-82.8); PLATELET COUNT 131 K/MM3 (134-434); RBC 2.91 M/mm3 (3.60-5.2); RDW 17.4 % (11.6-15.6)
[2019-08-20 15:51] LABS: WHITE BLOOD COUNT 33.9 K/mm3 (4.0-10.0)
[2019-08-20 16:08] LABS: ALBUMIN 1.6 g/dl (3.4-5.0); BILIRUBIN,TOTAL 0.4 mg/dL (0.2-1); BLOOD UREA NITROGEN 86.9 mg/dL (7-18); CALCIUM 8.1 mg/dL (8.5-10.1); CREATININE 3.8 mg/dL (0.55-1.3); MAGNESIUM 2.5 mg/dL (1.8-2.4); PHOSPHOROUS 5.5 mg/dL (2.5-4.9); POTASSIUM 4.2 mmol/L (3.5-5.1); TOT PROT 5.4 g/dl (6.4-8.2)
[2019-08-20] MEDS ORDERED: SODIUM BICARBONATE 8.4% 50 MEQ/50 ML VIAL IVPUSH ONE ×3 (16:15→20:00)
[2019-08-20] MEDS ORDERED: CEFTAZIDIME/AVIBACTAM 0.94 GM in DEXTROSE 5%-WATER - 100 ML IVPB SCH ×2 (17:15→18:15)
[2019-08-20 17:38] LABS: PLATELET ESTIMATE DECREASED
[2019-08-20] MEDS ORDERED: ZERBAXA 1.5 GM NR SCH (18:30)
[2019-08-20] MEDS ORDERED: levETIRAcetam 500 MG/5 ML ORAL SOLUTION (UNIT-DOSE CUPS) PO ONE (21:39)
[2019-08-20] MEDS ORDERED: CHLORHEXIDINE GLUCONATE 4% CLEANSER FOR DECOLONIZATION TP SCH (22:00)
--- NOTE | 2019-08-20 22:36 | PN ---
Progress Note, Physician History of Present Illness: REMAINS ON [employer] PRECAUTIONS PENDING COVID-19 TESTING BLOOD C/S + PRESUMED MRSA, SCN TEMPS DOWN AFEBRILE WBC REMAINS ELEVATED 27k AZOTEMIA IMPROVED - Current Medication List Current Medications: Active Medications Chlorhexidine Gluconate (Hibiclens For Decolonization -) 1 applic TP HS [facility] Collagenase (Santyl -) 1 applic TP DAILY [facility]AS[facility]I; Protocol Azithromycin (Zithromax 500mg Ivpb (Pre-Docked)) 500 mg in 250 mls @ 250 mls/hr IVPB DAILY [facility] Levetiracetam (Keppra Oral Solution -) 750 mg GT DAILY [facility] Zerbaxa 375mg 1 each NR Q8H-IV [facility]I Pantoprazole Sodium (Protonix Iv) 40 mg IVPUSH DAILY [facility] Prednisone (Deltasone -) 10 mg PO DAILY [facility] Last Admin: 08/20/19 09:01 Dose: 10 mg Documented by: - Objective Vital Signs: Vital Signs Temperature 98.3 F 08/20/19 18:00 Pulse Rate 102 H 08/20/19 21:27 Respiratory Rate 22 H 08/20/19 21:27 Blood Pressure 107/50 L 08/20/19 21:27 O2 Sat by Pulse Oximetry (%) 94 L 08/20/19 12:27 Labs: CBC, BMP 08/20/19 14:30 08/20/19 14:30 INR, PTT INR 1.03 (0.83-1.09) 08/17/19 13:00
[2019-08-21] MEDS: CEFTOLOZANE NR SCH ×2 (01:30→10:58)
[2019-08-21] MEDS: TAZOBACTAM NR SCH ×2 (01:30→10:58)
[2019-08-21] MEDS ORDERED: PT OWN MED DRAWER 7, Y5N ONE (10:29)
[2019-08-21] MEDS: predniSONE 10 MG TABLET (UD) PO SCH (10:58)
[2019-08-21] MEDS: levETIRAcetam 500 MG/5 ML ORAL SOLUTION (UNIT-DOSE CUPS) GT SCH (10:58)
[2019-08-21] MEDS: PANTOPRAZOLE SODIUM 40 MG VIAL IVPUSH SCH (10:59)
[2019-08-21] MEDS: COLLAGENASE CLOSTRIDIUM HIST. 30 GRAMS TUBE TP SCH (10:59)
[2019-08-21] MEDS: AZITHROMYCIN IVPB 500 MG/250 ML BAG IVPB SCH (11:02)
--- NOTE | 2019-08-21 11:36 | PN ---
Progress Note, Physician Chief Complaint: Acute on Chronic Hypoxic Respiratory Failure Septic Shock Hx Renal Transplant History of Present Illness: Previous notes and events reviewed non-verbal NAD mechanically ventilated awaiting Covid-19 serology results - Current Medication List Current Medications: Active Medications Chlorhexidine Gluconate (Hibiclens For Decolonization -) 1 applic TP HS [facility] Collagenase (Santyl -) 1 applic TP DAILY [facility]; Protocol Last Admin: 08/21/19 10:59 Dose: 1 applic Documented by: Azithromycin (Zithromax 500mg Ivpb (Pre-Docked)) 500 mg in 250 mls @ 250 mls/hr IVPB DAILY [facility] Last Admin: 08/21/19 11:02 Dose: 250 mls/hr Documented by: Levetiracetam (Keppra Oral Solution -) 750 mg GT DAILY [facility] Last Admin: 08/21/19 10:58 Dose: 750 mg Documented by: Zerbaxa 375mg 1 each NR Q8H-IV [facility] Last Admin: 08/21/19 10:58 Dose: 1 each Documented by: Pantoprazole Sodium (Protonix Iv) 40 mg IVPUSH DAILY [facility] Last Admin: 08/21/19 10:59 Dose: 40 mg Documented by: Prednisone (Deltasone -) 10 mg PO DAILY [facility] Last Admin: 08/21/19 10:58 Dose: 10 mg Documented by: - Objective Vital Signs: Vital Signs Temperature 98.2 F 08/21/19 05:00 Pulse Rate 104 H 08/21/19 08:29 Respiratory Rate 22 H 08/21/19 08:29 Blood Pressure 95/54 L 08/21/19 05:00 O2 Sat by Pulse Oximetry (%) 100 08/21/19 08:29 Constitutional: Yes: No Distress, Calm Eyes: Yes: Conjunctiva Clear HENT: Yes: Atraumatic Neck: Yes: Other (trach) Cardiovascular: Yes: Tachycardia Respiratory: Yes: Mechanically Ventilated, Rhonchi Gastrointestinal: Yes: Normal Bowel Sounds, Soft Genitourinary: Yes: Christy Present Extremities: Yes: WNL Edema: Yes (LUE ) Edema: LUE: 2+ Neurological: Yes: Pre-Existing Deficit Labs: CBC, BMP 08/20/19 14:30 08/20/19 14:30 INR, PTT INR 1.03 (0.83-1.09) 08/17/19 13:00 Microbiology 08/16/19 13:32 Blood - Peripheral Venous Blood Culture - Preliminary Gram Positive Bacillus 08/19/19 14:26 Blood - Peripheral Venous Blood Culture - Preliminary NO GROWTH OBTAINED AFTER 24 HOURS, INCUBATION TO CONTINUE FOR 4 DAYS. 08/19/19 14:26 Blood - Peripheral Venous Blood Culture - Preliminary NO GROWTH OBTAINED AFTER 24 HOURS, INCUBATION TO CONTINUE FOR 4 DAYS. 08/16/19 13:32 Blood - Peripheral Venous Blood Culture - Preliminary NO GROWTH OBTAINED AFTER 96 HOURS, INCUBATION TO CONTINUE FOR 1 DAYS. 08/14/19 14:50 Blood - Central Line Blood Culture - Final S Aureus 08/14/19 14:30 Blood - Central Line Blood Culture - Final S Aureus 08/14/19 19:03 Sputum - Endotrachea Suction/Ventilator Gram Stain - Final 08/14/19 19:03 Sputum - Endotrachea Suction/Ventilator Sputum Culture - Final S Aureus Pseudomonas Aeruginosa 08/14/19 00:25 Urine - Urine - Catheterized Urine Culture - Final NO GROWTH OBTAINED 08/14/19 14:50 Urine - Urine Christy Legionella Antigen - Final 08/14/19 14:50 Urine - Urine Christy Streptococcus pneumoniae Antigen (M - Final 08/14/19 00:25 Stool Clostridioides difficile Antigen - Final 08/14/19 00:25 Stool Clostridioides difficile Toxin Assay - Final Problem List - Problems (1) Anemia Assessment/Plan: Hg 9.0 Stool OB negative monitor Hg daily transfuse for Hg <7.0 to avoid fluid overload Code(s): D64.9 - ANEMIA, UNSPECIFIED (2) Chronic respiratory failure with hypoxia and hypercapnia Assessment/Plan: Pulmonary on board mechanically ventilated keep SpO2 >90% Prednisone Influenza neg awaiting Covid-19 serology result Code(s): J96.11 - CHRONIC RESPIRATORY FAILURE WITH HYPOXIA; J96.12 - CHRONIC RESPIRATORY FAILURE WITH HYPERCAPNIA (3) HTN (hypertension) Assessment/Plan: monitor BP Code(s): I10 - ESSENTIAL (PRIMARY) HYPERTENSION (4) PNA (pneumonia) Assessment/Plan: ID on board Pulmonary on board Leukocytosis 33.9 afebrile Azithromycin CXR shows progressive congestive and infiltrative changes BC Initially positive, repeat neg keep SpO2 >90% Urine Legionella neg Code(s): J18.9 - PNEUMONIA, UNSPECIFIED ORGANISM (5) Renal transplant recipient Assessment/Plan: Renal on board Prednisone daily Code(s): Z94.0 - KIDNEY TRANSPLANT STATUS (6) Seizure disorder Assessment/Plan: Keppra daily Seizure precaution Code(s): G40.909 - EPILEPSY, UNSP, NOT INTRACTABLE, WITHOUT STATUS EPILEPTICUS (7) Septic shock Assessment/Plan: ID on board Pulmonary on board Leukocytosis 33.9 afebrile Azithromycin CXR shows progressive congestive and infiltrative changes BC Initially positive, repeat neg keep SpO2 >90% Code(s): A41.9 - SEPSIS, UNSPECIFIED ORGANISM; R65.21 - SEVERE SEPSIS WITH SEPTIC SHOCK Assessment/Plan see problem list
[2019-08-21] MEDS ORDERED: CEFTOLOZANE IVPB SCH (12:45)
[2019-08-21] MEDS ORDERED: DEXTROSE 5% IVPB SCH (12:45)
[2019-08-21] MEDS ORDERED: WATER IVPB SCH (12:45)
[2019-08-21] MEDS ORDERED: TAZOBACTAM IVPB SCH (12:45)
--- NOTE | 2019-08-21 14:05 | PN ---
Progress Note (short form) - Note Progress Note: PULMONARY Spo2 100%/afebrile Gen: vented, poorly responsive, less tachypneic Heart: RRR Lung: scattered rhonchi Abd: soft, nontender Ext: left arm 4+ edema/ right hand weeping B/L SCD's labs/meds/notes/images reviewed A/P Acute on Chronic Hypoxic Respiratory Failure Pneumonia Septic Shock Acute on Chronic Renal Failure h/o Renal Transplant Lactic Acidosis Hyponatremia CHF HTN Anemia - continue antibiotics - f/u cultures, serologies - off pressors, maintain MAP >65 - monitor urine output, creatinine - O2 to keep SpO2 >90% - replete lytes - continue assist control for now - DVT/GI prophylaxis - low clinical suspicion for COVID-19, results pending Camilo TOVAR MD
[2019-08-21] MEDS ORDERED: FUROSEMIDE 40 MG/4 ML INJECTABLE VIAL IVPUSH ONE (14:17)
--- NOTE | 2019-08-21 14:17 | PN ---
Progress Note, Physician History of Present Illness: Pt remains vented. Unable to give history. She is on the Medical ordoñez. - Current Medication List Current Medications: Active Medications Chlorhexidine Gluconate (Hibiclens For Decolonization -) 1 applic TP HS [facility] Collagenase (Santyl -) 1 applic TP DAILY [facility]; Protocol Last Admin: 08/21/19 10:59 Dose: 1 applic Documented by: Azithromycin (Zithromax 500mg Ivpb (Pre-Docked)) 500 mg in 250 mls @ 250 mls/hr IVPB DAILY [facility] Last Admin: 08/21/19 11:02 Dose: 250 mls/hr Documented by: Ceftolozane/Tazobactam 0.375 (gm/ Dextrose) 102.85 mls @ 102.85 mls/hr IVPB Q8H [facility] Levetiracetam (Keppra Oral Solution -) 750 mg GT DAILY [facility] Last Admin: 08/21/19 10:58 Dose: 750 mg Documented by: Pantoprazole Sodium (Protonix Iv) 40 mg IVPUSH DAILY [facility] Last Admin: 08/21/19 10:59 Dose: 40 mg Documented by: Prednisone (Deltasone -) 10 mg PO DAILY [facility] Last Admin: 08/21/19 10:58 Dose: 10 mg Documented by: - Objective Vital Signs: Vital Signs Temperature 98.2 F 08/21/19 05:00 Pulse Rate 104 H 08/21/19 08:29 Respiratory Rate 21 H 08/21/19 11:38 Blood Pressure 95/54 L 08/21/19 05:00 O2 Sat by Pulse Oximetry (%) 100 08/21/19 11:43 Constitutional: Yes: Calm Cardiovascular: Yes: S1, S2 Respiratory: Yes: Mechanically Ventilated, Rhonchi Gastrointestinal: Yes: Other (peg) Genitourinary: Yes: Christy Present Musculoskeletal: Yes: Muscle Weakness Edema: LLE: 1+, RLE: 1+ Neurological: Yes: Lethargy Labs: CBC, BMP 08/20/19 14:30 08/20/19 14:30 INR, PTT INR 1.03 (0.83-1.09) 08/17/19 13:00 Problem List - Problems (1) CHF (congestive heart failure) Code(s): I50.9 - HEART FAILURE, UNSPECIFIED Qualifiers: Heart failure chronicity: chronic (2) Renal failure Code(s): N19 - UNSPECIFIED KIDNEY FAILURE (3) Renal transplant recipient Code(s): Z94.0 - KIDNEY TRANSPLANT STATUS Assessment/Plan Current Medications Generic Name Dose Route Start Last Admin Trade Name Josemanuel PRN Reason Stop Dose Admin Chlorhexidine Gluconate 1 applic 08/20/19 22:00 Hibiclens For Decolonization - TP HS VASHTI Collagenase 1 applic 08/21/19 10:00 08/21/19 10:59 Santyl - TP 1 applic DAILY [facility]AS[facility]I Administration Protocol Azithromycin 500 mg in 250 mls @ 250 mls/hr 08/21/19 10:00 08/21/19 11:02 Zithromax 500mg Ivpb (Pre-Docked) IVPB 250 mls/hr DAILY [facility] Administration Ceftolozane/Tazobactam 0.375 102.85 mls @ 102.85 mls/hr 08/21/19 18:00 gm/ Dextrose IVPB Q8H [facility]I Levetiracetam 750 mg 08/21/19 10:00 08/21/19 10:58 Keppra Oral Solution - GT 750 mg DAILY [facility]AS[facility]I Administration Pantoprazole Sodium 40 mg 08/21/19 10:00 08/21/19 10:59 Protonix Iv IVPUSH 40 mg DAILY [facility]I Administration Prednisone 10 mg 08/19/19 10:00 08/21/19 10:58 Deltasone - PO 10 mg DAILY VASHTI Administration Impression 1. GORDON 2. kidney transplant - maintained with prednisone 10 mg daily 3. chronic resp failure with trache 4. peg tube 5. r/o covid19 6. sepsis 7. anemia 8. hypotension 9. shock 10. lactic acidosis 11. CKD Plan - will give a dose of lasix for everload - renal function worsening - pt on prednisone 10 mg for rejection - cellcept and prograf were stopped by transplant team after last septic episode and the plan was to keep her on prednisone and start dialysis when the kidney completely fails - follow covid status - discussed with pulmonary - vent support
[2019-08-21 15:15] VITALS: BMI 22.8
[2019-08-21 15:33] LABS: BASO % 0.2 % (0-2.0); EOS % 0.4 % (0-4.5); HEMATOCRIT 26.8 % (32.4-45.2); HEMOGLOBIN 8.5 GM/dL (10.7-15.3); LYMPH % 1.9 % (8-40); MCH 30.6 pg (25.7-33.7); MCHC 31.9 g/dl (32.0-36.0); MEAN PLT VOLUME 7.9 fl (7.5-11.1); MONO % 0.4 % (3.8-10.2); NEUT % 97.1 % (42.8-82.8); PLATELET COUNT 141 K/MM3 (134-434); RBC 2.79 M/mm3 (3.60-5.2); RDW 18.1 % (11.6-15.6)
[2019-08-21 15:34] LABS: WHITE BLOOD COUNT 42.1 K/mm3 (4.0-10.0)
[2019-08-21 16:03] LABS: ALBUMIN 1.6 g/dl (3.4-5.0); BILIRUBIN,TOTAL 0.4 mg/dL (0.2-1); CALCIUM 8.2 mg/dL (8.5-10.1); CREATININE 4.1 mg/dL (0.55-1.3); MAGNESIUM 2.5 mg/dL (1.8-2.4); PHOSPHOROUS 6.5 mg/dL (2.5-4.9); POTASSIUM 3.9 mmol/L (3.5-5.1); TOT PROT 5.8 g/dl (6.4-8.2)
[2019-08-21 16:58] LABS: SMUDGE CELLS FEW
[2019-08-21 16:59] LABS: MACROCYTOSIS 1+; PLATELET ESTIMATE ADEQUATE
[2019-08-21] MEDS: CEFTOLOZANE IVPB SCH (19:02)
[2019-08-21] MEDS: TAZOBACTAM IVPB SCH (19:02)
[2019-08-21] MEDS: DEXTROSE 5% IVPB SCH (19:02)
[2019-08-21] MEDS: WATER IVPB SCH (19:02)
--- NOTE | 2019-08-21 19:59 | PN ---
Progress Note, Physician History of Present Illness: REMAINS ON [employer] PRECAUTIONS PENDING COVID-19 TESTING BLOOD C/S + PRESUMED MRSA, SCN TEMPS DOWN AFEBRILE WBC MARKEDLY ELEVATED AZOTEMIA WORSENED - Current Medication List Current Medications: Active Medications Collagenase (Santyl -) 1 applic TP DAILY [facility]I; Protocol Last Admin: 08/21/19 10:59 Dose: 1 applic Documented by: Azithromycin (Zithromax 500mg Ivpb (Pre-Docked)) 500 mg in 250 mls @ 250 mls/hr IVPB DAILY [facility] Last Admin: 08/21/19 11:02 Dose: 250 mls/hr Documented by: Ceftolozane/Tazobactam 0.375 (gm/ Dextrose) 102.85 mls @ 102.85 mls/hr IVPB Q8H [facility] Last Admin: 08/21/19 19:02 Dose: 102.85 mls/hr Documented by: Levetiracetam (Keppra Oral Solution -) 750 mg GT DAILY [facility] Last Admin: 08/21/19 10:58 Dose: 750 mg Documented by: Pantoprazole Sodium (Protonix Iv) 40 mg IVPUSH DAILY [facility] Last Admin: 08/21/19 10:59 Dose: 40 mg Documented by: Prednisone (Deltasone -) 10 mg PO DAILY [facility] Last Admin: 08/21/19 10:58 Dose: 10 mg Documented by: - Objective Vital Signs: Vital Signs Temperature 98.6 F 08/21/19 17:00 Pulse Rate 106 H 08/21/19 17:00 Respiratory Rate 18 08/21/19 16:23 Blood Pressure 120/80 08/21/19 17:00 O2 Sat by Pulse Oximetry (%) 100 08/21/19 11:43 Constitutional: Yes: No Distress Cardiovascular: Yes: Regular Rate and Rhythm, S1, S2 Respiratory: Yes: Mechanically Ventilated Gastrointestinal: Yes: Normal Bowel Sounds, Soft, Abdomen, Obese Edema: Yes Labs: CBC, BMP 08/21/19 15:00 08/21/19 15:00 INR, PTT INR 1.03 (0.83-1.09) 08/17/19 13:00 Assessment/Plan POLYMICROBIAL BACTEREMIA/ SEPSIS SEPSIS/ SEPTIC SHOCK RESP FAILURE/ PNEUMONIA FEVER IMPROVED MARKED LEUKOCYTOSIS AZOTEMIA S/P RENAL TRANSPLANT, NOT ON IMMUNOSUPPRESSIVE TX R/O COVID-19 REDOSE VANCOMYCIN PER LEVELS CONTINUE EMPIRIC ZOSYN/ ZERBAXA VENTILATORY SUPPORT MAINTAIN [employer] PRECAUTIONS
[2019-08-22] MEDS: CEFTOLOZANE IVPB SCH ×3 (02:42→18:57)
[2019-08-22] MEDS: DEXTROSE 5% IVPB SCH ×3 (02:42→18:57)
[2019-08-22] MEDS: TAZOBACTAM IVPB SCH ×3 (02:42→18:57)
[2019-08-22] MEDS: WATER IVPB SCH ×3 (02:42→18:57)
--- NOTE | 2019-08-22 10:01 | PN ---
Progress Note (short form) - Note Progress Note: PULMONARY Spo2 98%/afebrile air leak trach noted will likely need trach change Gen: vented,unresponsive, Heart: RRR Lung: scattered rhonchi Abd: soft, nontender Ext: left arm 4+ edema/ right hand weeping B/L SCD's labs/meds/notes/images reviewed A/P Acute on Chronic Hypoxic Respiratory Failure Pneumonia Septic Shock Acute on Chronic Renal Failure h/o Renal Transplant Lactic Acidosis Hyponatremia CHF HTN Anemia - continue antibiotics - f/u cultures, serologies - off pressors, maintain MAP >65 - monitor urine output, creatinine - O2 to keep SpO2 >90% - replete lytes - continue assist control for now - DVT/GI prophylaxis - low clinical suspicion for COVID-19, results pending Camilo TOVAR MD
[2019-08-22] MEDS: predniSONE 10 MG TABLET (UD) PO SCH (10:39)
[2019-08-22] MEDS: PANTOPRAZOLE SODIUM 40 MG VIAL IVPUSH SCH (10:40)
[2019-08-22] MEDS: AZITHROMYCIN IVPB 500 MG/250 ML BAG IVPB SCH (10:40)
[2019-08-22] MEDS: COLLAGENASE CLOSTRIDIUM HIST. 30 GRAMS TUBE TP SCH (10:40)
[2019-08-22] MEDS: levETIRAcetam 500 MG/5 ML ORAL SOLUTION (UNIT-DOSE CUPS) GT SCH (10:40)
--- NOTE | 2019-08-22 11:34 | PN ---
Progress Note (short form) - Note Progress Note: RENAL pt seen and examined pt is working with patient she is not responsive Last Vital Signs Temp Pulse Resp BP Pulse Ox 98.8 F 115 H 20 110/70 98 08/22/19 10:00 08/22/19 10:00 08/22/19 10:00 08/22/19 10:00 08/22/19 09:00 lungs bilat decreased breath sounds, has crackles at right base anteriorly cvs s1s2 rr abd soft ext +edema neuro lethargic CBC, BMP 08/21/19 15:00 08/21/19 15:00 Current Medications Generic Name Dose Route Start Last Admin Trade Name Josemanuel PRN Reason Stop Dose Admin Collagenase 1 applic 08/21/19 10:00 08/22/19 10:40 Santyl - TP 1 applic DAILY [facility]AS[facility]I Administration Protocol Azithromycin 500 mg in 250 mls @ 250 mls/hr 08/21/19 10:00 08/22/19 10:40 Zithromax 500mg Ivpb (Pre-Docked) IVPB 250 mls/hr DAILY [facility] Administration Ceftolozane/Tazobactam 0.375 102.85 mls @ 102.85 mls/hr 08/21/19 18:00 08/22/19 10:40 gm/ Dextrose IVPB 102.85 mls/hr Q8H [facility]I Administration Levetiracetam 750 mg 08/21/19 10:00 08/22/19 10:40 Keppra Oral Solution - GT 750 mg DAILY [facility]I Administration Pantoprazole Sodium 40 mg 08/21/19 10:00 08/22/19 10:40 Protonix Iv IVPUSH 40 mg DAILY [facility]I Administration Prednisone 10 mg 08/19/19 10:00 08/22/19 10:39 Deltasone - PO 10 mg DAILY [facility]I Administration Impression 1. GORDON 2. kidney transplant - maintained with prednisone 10 mg daily 3. chronic resp failure with trache 4. peg tube 5. r/o covid19 6. sepsis 7. anemia 8. hypotension 9. shock 10. lactic acidosis 11. CKD Plan - redose lasix - renal function worsening - pt on prednisone 10 mg for rejection - cellcept and prograf were stopped by transplant team after last septic episode and the plan was to keep her on prednisone and start dialysis when the kidney completely fails - follow covid status - would obtain cxr - discussed with pulmonary - vent support MV -
[2019-08-22] MEDS ORDERED: FUROSEMIDE 40 MG/4 ML INJECTABLE VIAL IVPUSH ONE (11:47)
--- NOTE | 2019-08-22 13:51 | PN ---
Progress Note, Physician Chief Complaint: IN BED 02 SUPPORT EVENTS REVIEWED - Current Medication List Current Medications: Active Medications Collagenase (Santyl -) 1 applic TP DAILY [facility]; Protocol Last Admin: 08/22/19 10:40 Dose: 1 applic Documented by: Azithromycin (Zithromax 500mg Ivpb (Pre-Docked)) 500 mg in 250 mls @ 250 mls/hr IVPB DAILY [facility] Last Admin: 08/22/19 10:40 Dose: 250 mls/hr Documented by: Ceftolozane/Tazobactam 0.375 (gm/ Dextrose) 102.85 mls @ 102.85 mls/hr IVPB Q8H [facility] Last Admin: 08/22/19 10:40 Dose: 102.85 mls/hr Documented by: Levetiracetam (Keppra Oral Solution -) 750 mg GT DAILY [facility] Last Admin: 08/22/19 10:40 Dose: 750 mg Documented by: Pantoprazole Sodium (Protonix Iv) 40 mg IVPUSH DAILY [facility] Last Admin: 08/22/19 10:40 Dose: 40 mg Documented by: Prednisone (Deltasone -) 10 mg PO DAILY [facility] Last Admin: 08/22/19 10:39 Dose: 10 mg Documented by: - Objective Vital Signs: Vital Signs Temperature 98.8 F 08/22/19 10:00 Pulse Rate 115 H 08/22/19 10:00 Respiratory Rate 19 08/22/19 11:37 Blood Pressure 110/70 08/22/19 10:00 O2 Sat by Pulse Oximetry (%) 98 08/22/19 09:00 Constitutional: Yes: Mild Distress Cardiovascular: Yes: Regular Rate and Rhythm Respiratory: Yes: Diminished, On Venti-Mask Genitourinary: Yes: Incontinence Musculoskeletal: Yes: Muscle Weakness Integumentary: Yes: Rash, Venous Stasis Changes Labs: CBC, BMP 08/21/19 15:00 08/21/19 15:00 INR, PTT INR 1.03 (0.83-1.09) 08/17/19 13:00 Problem List - Problems (1) Anemia Code(s): D64.9 - ANEMIA, UNSPECIFIED (2) CHF (congestive heart failure) Code(s): I50.9 - HEART FAILURE, UNSPECIFIED Qualifiers: Heart failure chronicity: chronic (3) Chronic respiratory failure with hypoxia and hypercapnia Code(s): J96.11 - CHRONIC RESPIRATORY FAILURE WITH HYPOXIA; J96.12 - CHRONIC RESPIRATORY FAILURE WITH HYPERCAPNIA (4) HTN (hypertension) Code(s): I10 - ESSENTIAL (PRIMARY) HYPERTENSION (5) PNA (pneumonia) Code(s): J18.9 - PNEUMONIA, UNSPECIFIED ORGANISM (6) Renal failure Code(s): N19 - UNSPECIFIED KIDNEY FAILURE (7) Renal transplant recipient Code(s): Z94.0 - KIDNEY TRANSPLANT STATUS (8) Seizure disorder Code(s): G40.909 - EPILEPSY, UNSP, NOT INTRACTABLE, WITHOUT STATUS EPILEPTICUS (9) Sepsis Code(s): A41.9 - SEPSIS, UNSPECIFIED ORGANISM Assessment/Plan IV ABX LABS REVIEWED MONITOR H/H AND RENAL FUNCTION 02 SUPPORT PULM EVAL ADVANCED DIRECTIVES FULL CODE
--- NOTE | 2019-08-22 17:28 | PN ---
Progress Note (short form) - Note Progress Note: seen for the first time unable to draw labs she opens her eyes on the vent day #8 covid19 pcr still pending followed some simple commands for the nurse today on vanco by levels zerbaxa and zithromax Vital Signs Period Temp Pulse Resp BP Sys/Huff Pulse Ox Last 24 Hr 97.0 F-98.8 F 102-115 16-22 90-115/50-70 98-100 cor-rrr lungs decreased bs at bases abd soft,nt ext positive edema CBC, BMP 08/21/19 15:00 08/21/19 15:00 Microbiology 08/19/19 14:26 Blood - Peripheral Venous Blood Culture - Preliminary NO GROWTH OBTAINED AFTER 72 HOURS, INCUBATION TO CONTINUE FOR 2 DAYS. 08/19/19 14:26 Blood - Peripheral Venous Blood Culture - Preliminary NO GROWTH OBTAINED AFTER 72 HOURS, INCUBATION TO CONTINUE FOR 2 DAYS. 08/16/19 13:32 Blood - Peripheral Venous Blood Culture - Final NO GROWTH AFTER 5 DAYS INCUBATION 08/16/19 13:32 Blood - Peripheral Venous Blood Culture - Final Brevibacterium Species 08/14/19 14:50 Blood - Central Line Blood Culture - Final Mr S Aureus 08/14/19 14:30 Blood - Central Line Blood Culture - Final Mr S Aureus 08/14/19 19:03 Sputum - Endotrachea Suction/Ventilator Gram Stain - Final 08/14/19 19:03 Sputum - Endotrachea Suction/Ventilator Sputum Culture - Final Mr S Aureus Pseudomonas Aeruginosa 08/14/19 00:25 Urine - Urine - Catheterized Urine Culture - Final NO GROWTH OBTAINED 08/14/19 14:50 Urine - Urine Christy Legionella Antigen - Final 08/14/19 14:50 Urine - Urine Christy Streptococcus pneumoniae Antigen (M - Final 08/14/19 00:25 Stool Clostridioides difficile Antigen - Final 08/14/19 00:25 Stool Clostridioides difficile Toxin Assay - Final a/p continue antibiotics for pneumonia leukocytosis- still with diarrhea repeat stool cdiff s/p renal transplant chronic resp failure- trach to vent will d/w lab regarding still outstanding covd 19 results
[2019-08-23] MEDS: CEFTOLOZANE IVPB SCH ×3 (02:49→17:28)
[2019-08-23] MEDS: WATER IVPB SCH ×3 (02:49→17:28)
[2019-08-23] MEDS: DEXTROSE 5% IVPB SCH ×3 (02:49→17:28)
[2019-08-23] MEDS: TAZOBACTAM IVPB SCH ×3 (02:49→17:28)
[2019-08-23] MEDS ORDERED: PT OWN MED DRAWER 7, Y5N ONE (10:45)
[2019-08-23] MEDS: predniSONE 10 MG TABLET (UD) PO SCH (10:51)
[2019-08-23] MEDS: levETIRAcetam 500 MG/5 ML ORAL SOLUTION (UNIT-DOSE CUPS) GT SCH (10:51)
[2019-08-23] MEDS: PANTOPRAZOLE SODIUM 40 MG VIAL IVPUSH SCH (10:51)
[2019-08-23] MEDS: COLLAGENASE CLOSTRIDIUM HIST. 30 GRAMS TUBE TP SCH (10:51)
[2019-08-23] MEDS: AZITHROMYCIN IVPB 500 MG/250 ML BAG IVPB SCH (10:51)
--- NOTE | 2019-08-23 11:28 | PN ---
Progress Note (short form) - Note Progress Note: PULMONARY vss/afebrile air leak trach noted will likely need trach change Gen: vented,minimally responsive, Heart: RRR Lung: scattered rhonchi Abd: soft, nontender Ext: left arm 4+ edema/ right hand weeping B/L SCD's labs/meds/notes/images reviewed A/P Acute on Chronic Hypoxic Respiratory Failure Pneumonia Septic Shock Acute on Chronic Renal Failure h/o Renal Transplant Lactic Acidosis Hyponatremia CHF HTN Anemia - continue antibiotics - f/u cultures, serologies - off pressors, maintain MAP >65 - monitor urine output, creatinine - O2 to keep SpO2 >90% - replete lytes - continue assist control for now - DVT/GI prophylaxis - low clinical suspicion for COVID-19, results pending Camilo TOVAR MD
--- NOTE | 2019-08-23 12:04 | PN ---
Progress Note, Physician Chief Complaint: IN BED EVENTS AND NOTES REVIEWED UNABLE TO DRAW LABS ARMS TO SWOLLEN - Current Medication List Current Medications: Active Medications Collagenase (Santyl -) 1 applic TP DAILY [facility]; Protocol Last Admin: 08/23/19 10:51 Dose: 1 applic Documented by: Azithromycin (Zithromax 500mg Ivpb (Pre-Docked)) 500 mg in 250 mls @ 250 mls/hr IVPB DAILY [facility] Last Admin: 08/23/19 10:51 Dose: 250 mls/hr Documented by: Ceftolozane/Tazobactam 0.375 (gm/ Dextrose) 102.85 mls @ 102.85 mls/hr IVPB Q8H [facility] Last Admin: 08/23/19 02:49 Dose: 102.85 mls/hr Documented by: Levetiracetam (Keppra Oral Solution -) 750 mg GT DAILY [facility] Last Admin: 08/23/19 10:51 Dose: 750 mg Documented by: Pantoprazole Sodium (Protonix Iv) 40 mg IVPUSH DAILY [facility] Last Admin: 08/23/19 10:51 Dose: 40 mg Documented by: Prednisone (Deltasone -) 10 mg PO DAILY [facility] Last Admin: 08/23/19 10:51 Dose: 10 mg Documented by: - Objective Vital Signs: Vital Signs Temperature 98 F 08/23/19 11:23 Pulse Rate 105 H 08/23/19 11:23 Respiratory Rate 18 08/23/19 11:39 Blood Pressure 100/70 08/23/19 11:23 O2 Sat by Pulse Oximetry (%) 98 08/23/19 09:00 Constitutional: Yes: Moderate Distress Cardiovascular: Yes: Pulse Irregular Respiratory: Yes: Mechanically Ventilated Gastrointestinal: Yes: Soft Genitourinary: Yes: Incontinence Musculoskeletal: Yes: Muscle Weakness Edema: Yes Edema: LUE: 2+, RUE: 2+, LLE: 2+, RLE: 2+ Integumentary: Yes: Erythema, Rash, Skin Tear Wound/Incision: Yes: Other Neurological: Yes: Unresponsive Labs: CBC, BMP 08/21/19 15:00 08/21/19 15:00 INR, PTT INR 1.03 (0.83-1.09) 08/17/19 13:00 Problem List - Problems (1) Anemia Code(s): D64.9 - ANEMIA, UNSPECIFIED (2) CHF (congestive heart failure) Code(s): I50.9 - HEART FAILURE, UNSPECIFIED Qualifiers: Heart failure chronicity: chronic (3) Chronic respiratory failure with hypoxia and hypercapnia Code(s): J96.11 - CHRONIC RESPIRATORY FAILURE WITH HYPOXIA; J96.12 - CHRONIC RESPIRATORY FAILURE WITH HYPERCAPNIA (4) HTN (hypertension) Code(s): I10 - ESSENTIAL (PRIMARY) HYPERTENSION (5) PNA (pneumonia) Code(s): J18.9 - PNEUMONIA, UNSPECIFIED ORGANISM (6) Renal failure Code(s): N19 - UNSPECIFIED KIDNEY FAILURE (7) Renal transplant recipient Code(s): Z94.0 - KIDNEY TRANSPLANT STATUS (8) Seizure disorder Code(s): G40.909 - EPILEPSY, UNSP, NOT INTRACTABLE, WITHOUT STATUS EPILEPTICUS (9) Sepsis Code(s): A41.9 - SEPSIS, UNSPECIFIED ORGANISM Assessment/Plan IV ABX LABS UNABLE TO DRAW, RETRY LATER TODAY LASIX IV ORDERED MONITOR H/H AND RENAL FUNCTION 02 SUPPORT ON VENTILATOR PULM EVAL ADVANCED DIRECTIVES FULL CODE
--- NOTE | 2019-08-23 12:21 | PN ---
Progress Note (short form) - Note Progress Note: RENAL pt seen and examined she is not responsive Last Vital Signs Temp Pulse Resp BP Pulse Ox 98 F 105 H 18 100/70 98 08/23/19 11:23 08/23/19 11:23 08/23/19 11:39 08/23/19 11:23 08/23/19 09:00 lungs bilat decreased breath sounds, has crackles at right base anteriorly cvs s1s2 rr abd soft ext +edema neuro lethargic LABS PENDING TODAY Current Medications Generic Name Dose Route Start Last Admin Trade Name Josemanuel PRN Reason Stop Dose Admin Collagenase 1 applic 08/21/19 10:00 08/23/19 10:51 Santyl - TP 1 applic DAILY VASHTI Administration Protocol Azithromycin 500 mg in 250 mls @ 250 mls/hr 08/21/19 10:00 08/23/19 10:51 Zithromax 500mg Ivpb (Pre-Docked) IVPB 250 mls/hr DAILY VASHTI Administration Ceftolozane/Tazobactam 0.375 102.85 mls @ 102.85 mls/hr 08/21/19 18:00 08/23/19 02:49 gm/ Dextrose IVPB 102.85 mls/hr Q8H VASHTI Administration Levetiracetam 750 mg 08/21/19 10:00 08/23/19 10:51 Keppra Oral Solution - GT 750 mg DAILY VASHTI Administration Pantoprazole Sodium 40 mg 08/21/19 10:00 08/23/19 10:51 Protonix Iv IVPUSH 40 mg DAILY VASHTI Administration Prednisone 10 mg 08/19/19 10:00 08/23/19 10:51 Deltasone - PO 10 mg DAILY VASHTI Administration Impression 1. GORDON 2. kidney transplant - maintained with prednisone 10 mg daily 3. chronic resp failure with trache 4. peg tube 5. r/o covid19 6. sepsis 7. anemia 8. hypotension 9. shock 10. lactic acidosis 11. CKD Plan - would transfer to tertiary care center if covid 19 test is neg for possible rx of rejection - renal function worsening - pt on prednisone 10 mg for rejection - cellcept and prograf were stopped by transplant team after last septic episode and the plan was to keep her on prednisone and start dialysis when the kidney completely fails - follow covid status - cxr pending - vent support MV -
[2019-08-23 12:23] LABS: BASO % 0.3 % (0-2.0); EOS % 0.4 % (0-4.5); HEMOGLOBIN 7.4 GM/dL (10.7-15.3); LYMPH % 2.9 % (8-40); MCH 31.5 pg (25.7-33.7); MCHC 32.1 g/dl (32.0-36.0); MEAN CELL VOLUME 98.1 fl (80-96); MONO % 0.9 % (3.8-10.2); NEUT % 95.5 % (42.8-82.8); PLATELET COUNT 137 K/MM3 (134-434); RBC 2.34 M/mm3 (3.60-5.2); RDW 17.1 % (11.6-15.6)
[2019-08-23 12:25] LABS: WHITE BLOOD COUNT 41.3 K/mm3 (4.0-10.0)
[2019-08-23 12:56] LABS: ALBUMIN 1.6 g/dl (3.4-5.0); BILIRUBIN,TOTAL 0.3 mg/dL (0.2-1); CALCIUM 8.6 mg/dL (8.5-10.1); TOT PROT 5.9 g/dl (6.4-8.2)
[2019-08-23 12:57] LABS: PLATELET ESTIMATE ADEQUATE
[2019-08-23 13:06] LABS: BLOOD UREA NITROGEN 108.3 mg/dL (7-18)
[2019-08-24] MEDS: WATER IVPB SCH ×3 (01:14→20:29)
[2019-08-24] MEDS: DEXTROSE 5% IVPB SCH ×3 (01:14→20:29)
[2019-08-24] MEDS: CEFTOLOZANE IVPB SCH ×3 (01:14→20:29)
[2019-08-24] MEDS: TAZOBACTAM IVPB SCH ×3 (01:14→20:29)
[2019-08-24] MEDS ORDERED: PT OWN MED DRAWER 7, Y5N ONE (10:31)
[2019-08-24] MEDS: PANTOPRAZOLE SODIUM 40 MG VIAL IVPUSH SCH (10:47)
[2019-08-24] MEDS: AZITHROMYCIN IVPB 500 MG/250 ML BAG IVPB SCH (10:47)
[2019-08-24] MEDS: levETIRAcetam 500 MG/5 ML ORAL SOLUTION (UNIT-DOSE CUPS) GT SCH ×2 (10:48→12:00)
[2019-08-24] MEDS: predniSONE 10 MG TABLET (UD) PO SCH ×2 (10:49→12:00)
--- NOTE | 2019-08-24 14:12 | PN ---
Progress Note, Physician Chief Complaint: Acute on Chronic Hypoxic Respiratory Failure Pneumonia Septic Shock Acute on Chronic Renal Failure h/o Renal Transplant Lactic Acidosis CHF HTN Anemia History of Present Illness: Mechanically vented to trach Awaiting COVID serology - Current Medication List Current Medications: Active Medications Collagenase (Santyl -) 1 applic TP DAILY VASHTI; Protocol Last Admin: 08/23/19 10:51 Dose: 1 applic Documented by: Azithromycin (Zithromax 500mg Ivpb (Pre-Docked)) 500 mg in 250 mls @ 250 mls/hr IVPB DAILY VASHTI Last Admin: 08/24/19 10:47 Dose: 250 mls/hr Documented by: Ceftolozane/Tazobactam 0.375 (gm/ Dextrose) 102.85 mls @ 102.85 mls/hr IVPB Q8H [facility]ASHTI Last Admin: 08/24/19 12:12 Dose: 102.85 mls/hr Documented by: Levetiracetam (Keppra Oral Solution -) 750 mg GT DAILY VASHTI Last Admin: 08/24/19 12:00 Dose: 750 mg Documented by: Pantoprazole Sodium (Protonix Iv) 40 mg IVPUSH DAILY [facility]I Last Admin: 08/24/19 10:47 Dose: 40 mg Documented by: Prednisone (Deltasone -) 10 mg PO DAILY [facility]ASHTI Last Admin: 08/24/19 12:00 Dose: 10 mg Documented by: - Objective Vital Signs: Vital Signs Temperature 98 F 08/24/19 08:45 Pulse Rate 105 H 08/24/19 10:39 Respiratory Rate 24 H 08/24/19 12:04 Blood Pressure 100/50 L 08/24/19 10:39 O2 Sat by Pulse Oximetry (%) 100 08/24/19 08:47 Labs: CBC, BMP 08/23/19 10:50 08/23/19 10:50 INR, PTT INR 1.03 (0.83-1.09) 08/17/19 13:00 Problem List - Problems (1) Anemia Code(s): D64.9 - ANEMIA, UNSPECIFIED (2) Chronic respiratory failure with hypoxia and hypercapnia Code(s): J96.11 - CHRONIC RESPIRATORY FAILURE WITH HYPOXIA; J96.12 - CHRONIC RESPIRATORY FAILURE WITH HYPERCAPNIA (3) Renal failure Code(s): N19 - UNSPECIFIED KIDNEY FAILURE (4) Renal transplant recipient Code(s): Z94.0 - KIDNEY TRANSPLANT STATUS (5) Sepsis Code(s): A41.9 - SEPSIS, UNSPECIFIED ORGANISM
--- NOTE | 2019-08-24 15:31 | PN ---
Progress Note, Physician History of Present Illness: Pt remains lethargic. Pt vent dependent. - Current Medication List Current Medications: Active Medications Collagenase (Santyl -) 1 applic TP DAILY [facility]ASHTI; Protocol Last Admin: 08/23/19 10:51 Dose: 1 applic Documented by: Azithromycin (Zithromax 500mg Ivpb (Pre-Docked)) 500 mg in 250 mls @ 250 mls/hr IVPB DAILY [facility] Last Admin: 08/24/19 10:47 Dose: 250 mls/hr Documented by: Ceftolozane/Tazobactam 0.375 (gm/ Dextrose) 102.85 mls @ 102.85 mls/hr IVPB Q8H [facility] Last Admin: 08/24/19 12:12 Dose: 102.85 mls/hr Documented by: Levetiracetam (Keppra Oral Solution -) 750 mg GT DAILY [facility] Last Admin: 08/24/19 12:00 Dose: 750 mg Documented by: Pantoprazole Sodium (Protonix Iv) 40 mg IVPUSH DAILY [facility] Last Admin: 08/24/19 10:47 Dose: 40 mg Documented by: Prednisone (Deltasone -) 10 mg PO DAILY [facility] Last Admin: 08/24/19 12:00 Dose: 10 mg Documented by: - Objective Vital Signs: Vital Signs Temperature 97.6 F 08/24/19 14:00 Pulse Rate 105 H 08/24/19 10:39 Respiratory Rate 24 H 08/24/19 14:00 Blood Pressure 92/60 08/24/19 14:00 O2 Sat by Pulse Oximetry (%) 100 08/24/19 08:47 Constitutional: Yes: Calm Eyes: Yes: Conjunctiva Clear HENT: Yes: Atraumatic Neck: Yes: Other (trache) Cardiovascular: Yes: S1, S2 Respiratory: Yes: Mechanically Ventilated Edema: Yes Neurological: Yes: Lethargy Labs: CBC, BMP 08/23/19 10:50 08/23/19 10:50 INR, PTT INR 1.03 (0.83-1.09) 08/17/19 13:00 Problem List - Problems (1) CHF (congestive heart failure) Code(s): I50.9 - HEART FAILURE, UNSPECIFIED Qualifiers: Heart failure chronicity: chronic (2) Renal failure Code(s): N19 - UNSPECIFIED KIDNEY FAILURE (3) Renal transplant recipient Code(s): Z94.0 - KIDNEY TRANSPLANT STATUS Assessment/Plan Current Medications Generic Name Dose Route Start Last Admin Trade Name Josemanuel PRN Reason Stop Dose Admin Collagenase 1 applic 08/21/19 10:00 08/23/19 10:51 Santyl - TP 1 applic DAILY VASHTI Administration Protocol Azithromycin 500 mg in 250 mls @ 250 mls/hr 08/21/19 10:00 08/24/19 10:47 Zithromax 500mg Ivpb (Pre-Docked) IVPB 250 mls/hr DAILY [facility]HTI Administration Ceftolozane/Tazobactam 0.375 102.85 mls @ 102.85 mls/hr 08/21/19 18:00 08/24/19 12:12 gm/ Dextrose IVPB 102.85 mls/hr Q8H VASHTI Administration Levetiracetam 750 mg 08/21/19 10:00 08/24/19 12:00 Keppra Oral Solution - GT 750 mg DAILY VASHTI Administration Pantoprazole Sodium 40 mg 08/21/19 10:00 08/24/19 10:47 Protonix Iv IVPUSH 40 mg DAILY VASHTI Administration Prednisone 10 mg 08/19/19 10:00 08/24/19 12:00 Deltasone - PO 10 mg DAILY VASHTI Administration Laboratory Tests 08/14/19 07:35 Coronavirus (PCR) Pending Impression 1. GORDON 2. kidney transplant - maintained with prednisone 10 mg daily 3. chronic resp failure with trache 4. peg tube 5. r/o covid19 6. sepsis 7. anemia 8. hypotension 9. shock 10. lactic acidosis 11. CKD Plan - covid results still pending - renal function worsening - transfer to [facility] pending covid results - lasix for volume control - cellcept and prograf were stopped by transplant team after last septic episode and the plan was to keep her on prednisone and start dialysis when the kidney completely fails - vent support
[2019-08-24] MEDS ORDERED: FUROSEMIDE 40 MG/4 ML INJECTABLE VIAL IVPUSH ONE (15:45)
[2019-08-24] MEDS: BACITRACIN 15 GM TUBE TOPICAL OINTMENT TP SCH (16:38)
[2019-08-24] MEDS: COLLAGENASE CLOSTRIDIUM HIST. 30 GRAMS TUBE TP SCH (18:20)
[2019-08-24] MEDS ORDERED: LORazepam 2 MG/ML SDV VIAL IVPUSH ONE (19:06)
[2019-08-24] MEDS ORDERED: LORazepam 2 MG/ML SDV VIAL ONE (19:07)
[2019-08-24] MEDS ORDERED: levETIRAcetam 500 MG/5 ML INJECTION VIAL IVPB ONE (22:00)
--- NOTE | 2019-08-24 22:31 | CONSULT ---
Consult - text type - Consultation Consultation Note: 63 year old female with pmhx of ckd, kidney transplant, chf, htn, chronic resp failure with trache and peg who was sent in for fever and hypotension. She was also noted to be hypoxic. She was treated for acute on chronic resp. failure,pneumonia, GORDON MRSSA bacter emia,pseudomonalin sputum cx, brevibacterium spp. bacteremia We have been consulted for leukocytosis - History Source History Provided By: Medical Record - Past Medical History Cardio/Vascular: Yes: CHF, HTN Renal/: Yes: Renal Failure, Other (transplant) Psych: Yes: Depression - Past Surgical History Past Surgical History: Yes: AV Fistula/Graft - Smoking History Smoking history: Unknown if ever smoked Home Medications - Allergies Allergies/Adverse Reactions: Allergies Allergy/AdvReac Type Severity Reaction Status Date / Time perry Allergy Verified 08/14/19 00:45 peach Allergy Verified 08/14/19 00:45 prunes Allergy Verified 08/14/19 00:45 - Home Medications Home Medications: Ambulatory Orders Tacrolimus [Prograf] 5 mg GT BID 12/02/18 Vitamins A and D [Vitamin A and D] 113.4 gm TP BID 12/02/18 levETIRAcetam [Keppra Oral Solution -] 750 mg GT DAILY 12/02/18 Aa/Hydrolyzed Collagen, Whey [Lps 15-30 Liquid] 30 ml PO DAILY 12/30/18 Cholecalciferol (Vitamin D3) [Vitamin D3 -] 800 unit GT BID 12/30/18 Darbepoetin Mervin [Aranesp] 40 mcg IM WEEKLY 12/30/18 Fluconazole [Diflucan 40Mg/ml Suspension -] 5 ml GT TID 12/30/18 Heparin - 5,000 unit SQ BID 12/30/18 Lidocaine 5% Patch [Lidoderm Patch -] 1 patch TP DAILY 12/30/18 Metoprolol Tartrate 25 mg PO BID 12/30/18 Tramadol HCl [Ultram] 50 mg GT Q6H PRN 12/30/18 Family Medical History Family History: Unable to Obtain Review of Systems Unable to obtain ROS, reason: lethargy Physical Exam Vital Signs: AFVSS Neck: Yes: Other (trache) Cardiovascular: Yes: Tachycardia, S1, S2 Respiratory: Yes: Mechanically Ventilated Gastrointestinal: Yes: Other (peg) Renal/: Yes: Christy Present, Musculoskeletal: Yes: Muscle Weakness Edema: LLE: Trace, RLE: Trace Imaging - Results Chest X-ray: Report Reviewe Active Medications Generic Name Dose Route Start Last Admin Trade Name Josemanuel PRN Reason Stop Dose Admin Bacitracin 1 applic 08/24/19 16:00 08/24/19 16:38 Bacitracin - TP 1 applic DAILY VASHTI Administration Collagenase 1 applic 08/21/19 10:00 08/24/19 18:20 Santyl - TP 1 applic DAILY VASHTI Administration Protocol Azithromycin 500 mg in 250 mls @ 250 mls/hr 08/21/19 10:00 08/24/19 10:47 Zithromax 500mg Ivpb (Pre-Docked) IVPB 250 mls/hr DAILY [facility]ASHTI Administration Ceftolozane/Tazobactam 0.375 102.85 mls @ 102.85 mls/hr 08/21/19 18:00 08/25/19 02:13 gm/ Dextrose IVPB 102.85 mls/hr Q8H VASHTI Administration Levetiracetam 750 mg 08/21/19 10:00 08/24/19 12:00 Keppra Oral Solution - GT 750 mg DAILY VASHTI Administration Pantoprazole Sodium 40 mg 08/21/19 10:00 08/24/19 10:47 Protonix Iv IVPUSH 40 mg DAILY VASHTI Administration Prednisone 10 mg 08/19/19 10:00 08/24/19 12:00 Deltasone - PO 10 mg DAILY VASHTI Administration A/P 63 year old female with pmhx of ckd, kidney transplant, chf, htn, chronic resp failure with trache and peg who was sent in for fever and hypotension. She was also noted to be hypoxic. She was treated for acute on chronic resp. failure,pneumonia, GORDON MRSSA bacteremia,pseudomonalin sputum cx, brevibacterium spp. bacteremia We have been consulted for leukocytosis Persistent leukocytosis -- neutrophilia-- suspect due to chronic steroid use and infection ruling out c.diff check flow
--- NOTE | 2019-08-25 01:49 | RAPID ---
Physical Examination Vital Signs: Vital Signs Temperature 97 F L 08/24/19 16:31 Pulse Rate 102 H 08/24/19 21:15 Respiratory Rate 19 08/24/19 21:00 Blood Pressure 100/60 08/24/19 16:31 O2 Sat by Pulse Oximetry (%) 99 08/24/19 21:15 Labs: CBC, BMP 08/23/19 10:50 08/23/19 10:50 Rapid Response - Rapid Response Assessment: called at 7:05pm patient was found to be switching her right arm/ face HR 90 Sp02 99 % geN: trach in place; non-labored breathing CV RRR lungs: coarse breath sounds patient was given 2mg of ativan dr raines was called- wanted keppra level drawn and to give 500mg keppra
[2019-08-25] MEDS: TAZOBACTAM IVPB SCH ×3 (02:13→18:36)
[2019-08-25] MEDS: CEFTOLOZANE IVPB SCH ×3 (02:13→18:36)
[2019-08-25] MEDS: WATER IVPB SCH ×3 (02:13→18:36)
[2019-08-25] MEDS: DEXTROSE 5% IVPB SCH ×3 (02:13→18:36)
[2019-08-25] MEDS: BACITRACIN 15 GM TUBE TOPICAL OINTMENT TP SCH (11:29)
[2019-08-25] MEDS: levETIRAcetam 500 MG/5 ML ORAL SOLUTION (UNIT-DOSE CUPS) GT SCH (11:29)
[2019-08-25] MEDS: predniSONE 10 MG TABLET (UD) PO SCH (11:29)
[2019-08-25] MEDS: PANTOPRAZOLE SODIUM 40 MG VIAL IVPUSH SCH (11:29)
[2019-08-25] MEDS: AZITHROMYCIN IVPB 500 MG/250 ML BAG IVPB SCH (11:30)
--- NOTE | 2019-08-25 13:05 | PN ---
Progress Note (short form) - Note Progress Note: PULMONARY vss/afebrile air leak trach noted will likely need trach change Gen: vented,unresponse Heart: RRR Lung: scattered rhonchi Abd: soft, nontender Ext: left arm 4+ edema/ right hand weeping B/L SCD's labs/meds/notes/images reviewed A/P Acute on Chronic Hypoxic Respiratory Failure Pneumonia Septic Shock Acute on Chronic Renal Failure h/o Renal Transplant Lactic Acidosis Hyponatremia CHF HTN Anemia - continue antibiotics - f/u serologies - off pressors, maintain MAP >65 - monitor urine output, creatinine - O2 to keep SpO2 >90% - replete lytes - continue assist control for now - DVT/GI prophylaxis - low clinical suspicion for COVID-19, results pending Camilo TOVAR MD
[2019-08-25] MEDS ORDERED: FUROSEMIDE 40 MG/4 ML INJECTABLE VIAL IVPUSH ONE ×2 (14:03→20:51)
--- NOTE | 2019-08-25 14:08 | RAPID ---
Physical Examination Vital Signs: Vital Signs Temperature 97.0 F L 08/25/19 09:47 Pulse Rate 76 08/25/19 12:40 Respiratory Rate 25 H 08/25/19 12:40 Blood Pressure 110/50 L 08/25/19 09:47 O2 Sat by Pulse Oximetry (%) 98 08/25/19 12:40 Rapid response called, rapid team immediately to bedside. Rapid response called by Nurse who noted that patient SpO2 saturation was decreased to 80s and had increased work of breathing. Physical Exam: NC/AT Poorly responsive at baseline bilateral lower extremity pitting edema up to knees Crackles bilaterally on auscultation abd soft, nondistended Plan: 40mg Lasix IVpush CBC CMP Cardiac profile CXR to evaluate for congestion Primary team, Dr. Ward, notified by me about rapid response Labs: CBC, BMP 08/23/19 10:50 08/23/19 10:50
[2019-08-25] MEDS: COLLAGENASE CLOSTRIDIUM HIST. 30 GRAMS TUBE TP SCH (15:09)
--- NOTE | 2019-08-25 15:41 | PN ---
Progress Note, Physician History of Present Illness: Pt had a rapid response for desaturation. Pt remains lethargic. - Current Medication List Current Medications: Active Medications Bacitracin (Bacitracin -) 1 applic TP DAILY [facility] Last Admin: 08/25/19 11:29 Dose: 1 applic Documented by: Collagenase (Santyl -) 1 applic TP DAILY [facility]; Protocol Last Admin: 08/25/19 15:09 Dose: Not Given Documented by: Azithromycin (Zithromax 500mg Ivpb (Pre-Docked)) 500 mg in 250 mls @ 250 mls/hr IVPB DAILY [facility] Last Admin: 08/25/19 11:30 Dose: 250 mls/hr Documented by: Ceftolozane/Tazobactam 0.375 (gm/ Dextrose) 102.85 mls @ 102.85 mls/hr IVPB Q8H [facility] Last Admin: 08/25/19 13:00 Dose: 102.85 mls/hr Documented by: Levetiracetam (Keppra Oral Solution -) 750 mg GT DAILY [facility] Last Admin: 08/25/19 11:29 Dose: 750 mg Documented by: Pantoprazole Sodium (Protonix Iv) 40 mg IVPUSH DAILY [facility] Last Admin: 08/25/19 11:29 Dose: 40 mg Documented by: Prednisone (Deltasone -) 10 mg PO DAILY [facility] Last Admin: 08/25/19 11:29 Dose: 10 mg Documented by: - Objective Vital Signs: Vital Signs Temperature 97.3 F L 08/25/19 13:55 Pulse Rate 76 08/25/19 15:19 Respiratory Rate 24 H 08/25/19 15:19 Blood Pressure 98/40 L 08/25/19 15:19 O2 Sat by Pulse Oximetry (%) 98 08/25/19 12:40 Constitutional: Yes: Calm Neck: Yes: Other (trache) Cardiovascular: Yes: S1, S2 Respiratory: Yes: Mechanically Ventilated, Rhonchi Gastrointestinal: Yes: Soft Genitourinary: Yes: Incontinence Musculoskeletal: Yes: Muscle Weakness Edema: Yes Neurological: Yes: Lethargy Labs: CBC, BMP 08/23/19 10:50 INR, PTT INR 1.03 (0.83-1.09) 08/17/19 13:00 Problem List - Problems (1) CHF (congestive heart failure) Code(s): I50.9 - HEART FAILURE, UNSPECIFIED Qualifiers: Heart failure chronicity: chronic (2) Renal failure Code(s): N19 - UNSPECIFIED KIDNEY FAILURE (3) Renal transplant recipient Code(s): Z94.0 - KIDNEY TRANSPLANT STATUS Assessment/Plan Current Medications Generic Name Dose Route Start Last Admin Trade Name Freq PRN Reason Stop Dose Admin Bacitracin 1 applic 08/24/19 16:00 08/25/19 11:29 Bacitracin - TP 1 applic DAILY VASHTI Administration Collagenase 1 applic 08/21/19 10:00 08/25/19 15:09 Santyl - TP Not Given DAILY [facility]ASHTI Protocol Azithromycin 500 mg in 250 mls @ 250 mls/hr 08/21/19 10:00 08/25/19 11:30 Zithromax 500mg Ivpb (Pre-Docked) IVPB 250 mls/hr DAILY [facility]I Administration Ceftolozane/Tazobactam 0.375 102.85 mls @ 102.85 mls/hr 08/21/19 18:00 08/25/19 13:00 gm/ Dextrose IVPB 102.85 mls/hr Q8H VASHTI Administration Levetiracetam 750 mg 08/21/19 10:00 08/25/19 11:29 Keppra Oral Solution - GT 750 mg DAILY [facility]ASHTI Administration Pantoprazole Sodium 40 mg 08/21/19 10:00 08/25/19 11:29 Protonix Iv IVPUSH 40 mg DAILY [facility]HTI Administration Prednisone 10 mg 08/19/19 10:00 08/25/19 11:29 Deltasone - PO 10 mg DAILY [facility]ASHTI Administration Impression 1. GORDON 2. kidney transplant - maintained with prednisone 10 mg daily 3. chronic resp failure with trache 4. peg tube 5. r/o covid19 6. sepsis 7. anemia 8. hypotension 9. shock 10. lactic acidosis 11. CKD Plan - labs pending - vascular to evaluate fistula for use - will likely need to start HD - will give more lasix to evaluate response - vent support - overall prognosis is poor - follow covid panel, pending since 08/13 - cellcept and prograf were stopped by transplant team after last septic episode and the plan was to keep her on prednisone and start dialysis when the kidney completely fails - vent support
[2019-08-25 16:18] LABS: ALBUMIN 1.6 g/dl (3.4-5.0); BILIRUBIN,TOTAL 0.2 mg/dL (0.2-1); CALCIUM 7.8 mg/dL (8.5-10.1); CREATININE 5.8 mg/dL (0.55-1.3); POTASSIUM 4.5 mmol/L (3.5-5.1); TOT PROT 5.6 g/dl (6.4-8.2)
[2019-08-25 16:31] LABS: BLOOD UREA NITROGEN 120.4 mg/dL (7-18)
[2019-08-25] MEDS: FUROSEMIDE 40 MG/4 ML INJECTABLE VIAL IVPB SCH (18:06)
--- NOTE | 2019-08-25 18:23 | PN ---
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 Problem List - Problems (1) Anemia Code(s): D64.9 - ANEMIA, UNSPECIFIED (2) CHF (congestive heart failure) Code(s): I50.9 - HEART FAILURE, UNSPECIFIED Qualifiers: Heart failure chronicity: chronic (3) Chronic respiratory failure with hypoxia and hypercapnia Code(s): J96.11 - CHRONIC RESPIRATORY FAILURE WITH HYPOXIA; J96.12 - CHRONIC RESPIRATORY FAILURE WITH HYPERCAPNIA (4) HTN (hypertension) Code(s): I10 - ESSENTIAL (PRIMARY) HYPERTENSION (5) PNA (pneumonia) Code(s): J18.9 - PNEUMONIA, UNSPECIFIED ORGANISM (6) Renal failure Code(s): N19 - UNSPECIFIED KIDNEY FAILURE (7) Renal transplant recipient Code(s): Z94.0 - KIDNEY TRANSPLANT STATUS (8) Seizure disorder Code(s): G40.909 - EPILEPSY, UNSP, NOT INTRACTABLE, WITHOUT STATUS EPILEPTICUS (9) Sepsis Code(s): A41.9 - SEPSIS, UNSPECIFIED ORGANISM
--- NOTE | 2019-08-25 20:44 | PN ---
Physical Exam: SUBJECTIVE: Patient seen and examined. 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 given lasix 80 with 50cc total urine output. blood tinged sputum noted during suctioning. OBJECTIVE: Vital Signs Period Temp Pulse Resp BP Sys/Huff Pulse Ox Last 24 Hr 96.8 F-97.9 F 75-102 16-31 90-110/40-60 98-100 GENERAL: The patient is awake, unresponsive. HEAD: Normal with no signs of trauma. EYES: Sclera anicteric, conjunctiva clear. ENT: Ears normal, nares patent, oropharynx clear without exudates, moist mucous membranes. NECK: Trachea midline, full range of motion, supple. LUNGS: Breath sounds equal, + rhonchi, + wheezes, + crackles, + tachypnea, no accessory muscle use. HEART: Regular rate and rhythm, S1, S2 without murmur, rub or gallop. ABDOMEN: Soft, nontender, nondistended, normoactive bowel sounds, no guarding, no rebound, no hepatosplenomegaly, no masses. EXTREMITIES: 2+ pulses, warm, well-perfused, 2+ edema left upper extremity, 1+ RUE, LLE, LUE. Left forearm AVF + bruit/+ thrill NEUROLOGICAL: no speech at baseline. SKIN: sacral PU Laboratory Results - last 24 hr 08/14/19 08/25/19 07:35 15:15 Sodium 124 L Potassium 4.5 Chloride 92 L Carbon Dioxide 17 L Anion Gap 15 BUN 120.4 H* Creatinine 5.8 H Est GFR (CKD-EPI)AfAm 8.35 Est GFR (CKD-EPI)NonAf 7.20 Random Glucose 298 H Calcium 7.8 L Total Bilirubin 0.2 AST 23 ALT 20 Alkaline Phosphatase 197 H Total Protein 5.6 L Albumin 1.6 L COVID-19 (ELIZABET) Not detected Ref Lab Test Result Cancelled Active Medications Generic Name Dose Route Start Last Admin Trade Name Freq PRN Reason Stop Dose Admin Bacitracin 1 applic 08/24/19 16:00 08/25/19 11:29 Bacitracin - TP 1 applic DAILY [facility] Administration Collagenase 1 applic 08/21/19 10:00 08/25/19 15:09 Santyl - TP Not Given DAILY [facility] Protocol Furosemide 80 mg 08/25/19 17:00 08/25/19 18:06 Lasix Injection - IVPB 80 mg BID@0600,1400 [facility]HTI Administration Azithromycin 500 mg in 250 mls @ 250 mls/hr 08/21/19 10:00 08/25/19 11:30 Zithromax 500mg Ivpb (Pre-Docked) IVPB 250 mls/hr DAILY [facility] Administration Ceftolozane/Tazobactam 0.375 102.85 mls @ 102.85 mls/hr 08/21/19 18:00 08/25/19 18:36 gm/ Dextrose IVPB 102.85 mls/hr Q8H [facility] Administration Levetiracetam 750 mg 08/21/19 10:00 08/25/19 11:29 Keppra Oral Solution - GT 750 mg DAILY [facility] Administration Pantoprazole Sodium 40 mg 08/21/19 10:00 08/25/19 11:29 Protonix Iv IVPUSH 40 mg DAILY [facility] Administration Prednisone 10 mg 08/19/19 10:00 08/25/19 11:29 Deltasone - PO 10 mg DAILY [facility] Administration ASSESSMENT/PLAN: 63yF with PMH seizures, ESRD s/p kidney transplant, HTN, CHF, chronic resp failure s/p trach/peg admitted for sepsis due to pneumonia with acute on chronic respiratory failure. Sepsis due to pneumonia with acute on chronic respiratory failure - cont azithromycin and ceftolozane/tazobactam - judicious suctioning in s/o bloody sputum - cont current vent settings, maintain O2 > 90% - COVID 19 not detected Acute on chronic renal failure - was taken of cellcept/prograf by transplant team in s/o recurrent sepsis, cont prednisone for now, likely can d/c but defer to renal - DW Dr. 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 Guadalupe, will give keppra 750 IV x 1 now and increase daily dose to 750 BID vvia GT from QD DVT PPX - hold heparin in s/o bloody sputum FEN - hold water flushes - BMP in am, replete lytes as indicated - tube feed as ordered. Dispo: pt continues to require inpatient management of her emergent condition. Visit type - Emergency Visit Emergency Visit: Yes ED Registration Date: 08/14/19 Care time: The patient presented to the Emergency Department on the above date and was hospitalized for further evaluation of their emergent condition. - New Patient This patient is new to me today: Yes Date on this admission: 08/25/19 - Critical Care Critical Care patient: No - Discharge Referral Referred to [facility] Med P.C.: No
[2019-08-25] MEDS ORDERED: ALBUTEROL SO4 0.083% IH SOL 2.5 MG/3 ML VIAL.NEB. NEB ONE (20:46)
[2019-08-25] MEDS ORDERED: LORazepam 2 MG/ML SDV VIAL IVPUSH ONE ×2 (21:01→21:30)
[2019-08-25] MEDS ORDERED: LORazepam 2 MG/ML SDV VIAL ONE ×2 (21:02→21:19)
[2019-08-25] MEDS ORDERED: SODIUM CHLORIDE 250 ML IV PRN (21:06)
[2019-08-25] MEDS ORDERED: levETIRAcetam 500 MG/5 ML INJECTION VIAL IVPB ONE (21:11)
[2019-08-25] MEDS: INSULIN (NOVOLOG) ASPART 100 UNITS/ML 10ML VIAL SQ SCH (22:00)
[2019-08-26] MEDS: CEFTOLOZANE IVPB SCH ×3 (04:08→19:16)
[2019-08-26] MEDS: DEXTROSE 5% IVPB SCH ×3 (04:08→19:16)
[2019-08-26] MEDS: TAZOBACTAM IVPB SCH ×3 (04:08→19:16)
[2019-08-26] MEDS: WATER IVPB SCH ×3 (04:08→19:16)
[2019-08-26] MEDS: INSULIN (NOVOLOG) ASPART 100 UNITS/ML 10ML VIAL SQ SCH (06:02)
[2019-08-26] MEDS: FUROSEMIDE 40 MG/4 ML INJECTABLE VIAL IVPB SCH (06:13)
[2019-08-26] MEDS ORDERED: levETIRAcetam 500 MG/5 ML ORAL SOLUTION (UNIT-DOSE CUPS) GT SCH ×3 (10:00→12:30)
[2019-08-26] MEDS: AZITHROMYCIN IVPB 500 MG/250 ML BAG IVPB SCH ×2 (10:00→22:05)
--- NOTE | 2019-08-26 10:13 | PN ---
Progress Note, Physician Chief Complaint: I HAVE HAD MULTIPLE CONVERSATIONS WITH RAFFY THE PATIENT'S DAUGHTER. I EXPLAINED THE GRAVE CRITICAL CONDITION THAT HER MOM (PATIENT) IS IN. THEY ARE AGREEING TO DNR/DNI COMPASSIONATE CARE. - Current Medication List Current Medications: Active Medications Albumin Human (Albumin Human 25%) 12.5 gm IVPB Q30M [facility] Stop: 08/26/19 11:46 Albuterol/Ipratropium (Duoneb -) 1 amp NEB RQID [facility] Bacitracin (Bacitracin -) 1 applic TP DAILY [facility] Last Admin: 08/25/19 11:29 Dose: 1 applic Documented by: Collagenase (Santyl -) 1 applic TP DAILY [facility]; Protocol Last Admin: 08/25/19 15:09 Dose: Not Given Documented by: Furosemide (Lasix Injection -) 80 mg IVPB BID@0600,1400 [facility] Last Admin: 08/26/19 06:13 Dose: 80 mg Documented by: Azithromycin (Zithromax 500mg Ivpb (Pre-Docked)) 500 mg in 250 mls @ 250 mls/hr IVPB DAILY [facility] Last Admin: 08/25/19 11:30 Dose: 250 mls/hr Documented by: Ceftolozane/Tazobactam 0.375 (gm/ Dextrose) 102.85 mls @ 102.85 mls/hr IVPB Q8H [facility] Last Admin: 08/26/19 04:08 Dose: 102.85 mls/hr Documented by: Sodium Chloride (Normal Saline -) 250 mls @ 3,000 mls/hr IV PRN PRN PRN Reason: Hypotension during Dialysis Stop: 08/26/19 21:07 Insulin Aspart (Novolog Vial Sliding Scale -) 1 vial SQ Q6HPO [facility]; Protocol Levetiracetam (Keppra Oral Solution -) 750 mg GT BID [facility] Pantoprazole Sodium (Protonix Iv) 40 mg IVPUSH DAILY [facility] Last Admin: 08/25/19 11:29 Dose: 40 mg Documented by: Prednisone (Deltasone -) 10 mg PO DAILY [facility] Last Admin: 08/25/19 11:29 Dose: 10 mg Documented by: - Objective Vital Signs: Vital Signs Temperature 97 F L 08/26/19 09:16 Pulse Rate 66 08/26/19 09:16 Respiratory Rate 23 H 03/25/20 09:16 Blood Pressure 86/30 L 08/26/19 09:16 O2 Sat by Pulse Oximetry (%) 100 08/25/19 21:00 Constitutional: Yes: Severe Distress Cardiovascular: Yes: Pulse Irregular Respiratory: Yes: Diminished, Mechanically Ventilated Gastrointestinal: Yes: Other Genitourinary: Yes: Christy Present (RECTAL TUBES) Edema: Yes Neurological: Yes: Unresponsive, Weakness Labs: CBC, BMP 08/23/19 10:50 08/25/19 15:15 INR, PTT INR 1.03 (0.83-1.09) 08/17/19 13:00 Problem List - Problems (1) Anemia Code(s): D64.9 - ANEMIA, UNSPECIFIED (2) CHF (congestive heart failure) Code(s): I50.9 - HEART FAILURE, UNSPECIFIED Qualifiers: Heart failure chronicity: chronic (3) Chronic respiratory failure with hypoxia and hypercapnia Code(s): J96.11 - CHRONIC RESPIRATORY FAILURE WITH HYPOXIA; J96.12 - CHRONIC RESPIRATORY FAILURE WITH HYPERCAPNIA (4) HTN (hypertension) Code(s): I10 - ESSENTIAL (PRIMARY) HYPERTENSION (5) PNA (pneumonia) Code(s): J18.9 - PNEUMONIA, UNSPECIFIED ORGANISM (6) Renal failure Code(s): N19 - UNSPECIFIED KIDNEY FAILURE (7) Renal transplant recipient Code(s): Z94.0 - KIDNEY TRANSPLANT STATUS (8) Seizure disorder Code(s): G40.909 - EPILEPSY, UNSP, NOT INTRACTABLE, WITHOUT STATUS EPILEPTICUS (9) Sepsis Code(s): A41.9 - SEPSIS, UNSPECIFIED ORGANISM Assessment/Plan PATIENT IS DNR/DNI COMPASSIONATE CARE KEEP ON VENT NO PRESSORS NO CHEST COMPRESSIONS PULM F/U STOP DIALYSIS NO BLOOD DRAWS
[2019-08-26] MEDS ORDERED: ALBUMIN HUMAN 25% 12.5 GM/50 ML VIAL IVPB SCH ×2 (10:15→15:45)
[2019-08-26] MEDS: predniSONE 10 MG TABLET (UD) PO SCH ×2 (10:30→18:51)
[2019-08-26] MEDS: PANTOPRAZOLE SODIUM 40 MG VIAL IVPUSH SCH (10:30)
[2019-08-26] MEDS: INSULIN SLIDING SCALE (NOVOLOG) 1 VIAL SQ SCH ×2 (11:14→17:47)
--- NOTE | 2019-08-26 14:58 | PN ---
Progress Note, Physician History of Present Illness: Pt seen and examined at bedside. She is minimally responsive. I called and spoke to her daughter again and explained her status. Daughter is a nurse and is aware of her mothers medical condition. She would like us to proceed with a trial of dialysis. Fistula is not yet ready to use. Vascular surgery to place access. - Current Medication List Current Medications: Active Medications Albuterol/Ipratropium (Duoneb -) 1 amp NEB RQID [facility] Bacitracin (Bacitracin -) 1 applic TP DAILY [facility] Last Admin: 08/25/19 11:29 Dose: 1 applic Documented by: Collagenase (Santyl -) 1 applic TP DAILY [facility]; Protocol Last Admin: 08/25/19 15:09 Dose: Not Given Documented by: Furosemide (Lasix Injection -) 80 mg IVPB BID@0600,1400 [facility]PL[facility] Last Admin: 08/26/19 06:13 Dose: 80 mg Documented by: Azithromycin (Zithromax 500mg Ivpb (Pre-Docked)) 500 mg in 250 mls @ 250 mls/hr IVPB DAILY [facility] Last Admin: 08/25/19 11:30 Dose: 250 mls/hr Documented by: Ceftolozane/Tazobactam 0.375 (gm/ Dextrose) 102.85 mls @ 102.85 mls/hr IVPB Q8H [facility] Last Admin: 08/26/19 04:08 Dose: 102.85 mls/hr Documented by: Sodium Chloride (Normal Saline -) 250 mls @ 3,000 mls/hr IV PRN PRN PRN Reason: Hypotension during Dialysis Stop: 08/26/19 21:07 Insulin Aspart (Novolog Vial Sliding Scale -) 1 vial SQ Q6HPO [facility]; Protocol Last Admin: 08/26/19 11:14 Dose: Not Given Documented by: Levetiracetam (Keppra Oral Solution -) 250 mg GT BID [facility] Pantoprazole Sodium (Protonix Iv) 40 mg IVPUSH DAILY [facility] Last Admin: 08/25/19 11:29 Dose: 40 mg Documented by: Prednisone (Deltasone -) 10 mg PO DAILY [facility] Last Admin: 08/25/19 11:29 Dose: 10 mg Documented by: - Objective Vital Signs: Vital Signs Temperature 97.9 F 08/26/19 13:07 Pulse Rate 66 08/26/19 12:39 Respiratory Rate 32 H 03/25/20 12:39 Blood Pressure 81/35 L 08/26/19 12:39 O2 Sat by Pulse Oximetry (%) 100 08/25/19 21:00 Constitutional: Yes: Calm Eyes: Yes: Conjunctiva Clear Neck: Yes: Other (trache) Cardiovascular: Yes: S1, S2 Respiratory: Yes: Mechanically Ventilated Gastrointestinal: Yes: Soft Musculoskeletal: Yes: Muscle Weakness Edema: Yes Edema: LUE: 2+, RUE: 2+, LLE: 2+, RLE: 2+ Neurological: Yes: Lethargy Labs: CBC, BMP 08/23/19 10:50 08/25/19 15:15 INR, PTT INR 1.03 (0.83-1.09) 08/17/19 13:00 Problem List - Problems (1) CHF (congestive heart failure) Code(s): I50.9 - HEART FAILURE, UNSPECIFIED Qualifiers: Heart failure chronicity: chronic (2) Renal failure Code(s): N19 - UNSPECIFIED KIDNEY FAILURE (3) Renal transplant recipient Code(s): Z94.0 - KIDNEY TRANSPLANT STATUS Assessment/Plan Current Medications Generic Name Dose Route Start Last Admin Trade Name Freq PRN Reason Stop Dose Admin Albuterol/Ipratropium 1 amp 08/26/19 20:45 Duoneb - NEB RQID [facility] Bacitracin 1 applic 08/24/19 16:00 08/25/19 11:29 Bacitracin - TP 1 applic DAILY [facility] Administration Collagenase 1 applic 08/21/19 10:00 08/25/19 15:09 Santyl - TP Not Given DAILY [facility] Protocol Furosemide 80 mg 08/25/19 17:00 08/26/19 06:13 Lasix Injection - IVPB 80 mg BID@0600,1400 [facility] Administration Azithromycin 500 mg in 250 mls @ 250 mls/hr 08/21/19 10:00 08/25/19 11:30 Zithromax 500mg Ivpb (Pre-Docked) IVPB 250 mls/hr DAILY [facility] Administration Ceftolozane/Tazobactam 0.375 102.85 mls @ 102.85 mls/hr 08/21/19 18:00 08/26/19 04:08 gm/ Dextrose IVPB 102.85 mls/hr Q8H [facility] Administration Sodium Chloride 250 mls @ 3,000 mls/hr 08/25/19 21:06 Normal Saline - IV 08/26/19 21:07 PRN PRN Hypotension during Dialysis Insulin Aspart 1 vial 08/26/19 10:02 08/26/19 11:14 Novolog Vial Sliding Scale - SQ Not Given Q6HPO REPLACED BY [facility] Protocol Levetiracetam 250 mg 08/26/19 12:30 Keppra Oral Solution - GT BID REPLACED BY [facility] Pantoprazole Sodium 40 mg 08/21/19 10:00 08/25/19 11:29 Protonix Iv IVPUSH 40 mg DAILY [facility] Administration Prednisone 10 mg 08/19/19 10:00 08/25/19 11:29 Deltasone - PO 10 mg DAILY [facility] Administration Impression 1. GORDON 2. kidney transplant - maintained with prednisone 10 mg daily 3. chronic resp failure with trache 4. peg tube 5. r/o covid19 6. sepsis 7. anemia 8. hypotension 9. shock 10. lactic acidosis 11. CKD Plan - HD today - will attempt to UF volume - send pre HD labs - vascular to place criss - ultrasound shows access not yet mature - called and discussed with daughter, she gave consent over the phone - daughter who is a nurse is aware of the risks associated with HD - covid negative - vent support
--- NOTE | 2019-08-26 15:06 | PROC ---
Central Line Insertion - Procedure Note TIME OUT performed prior to this procedure with verbal confirmation of correct patient identity, correct side, agreement of the procedure, correct patient position, availability of necessary equipment. The telephone consent obtained from daughter Tanja Romero. Form is complete and accurate placed in patient's paper chart. Risk of possible infection, bleeding and pneumothorax have been discussed with the patient. Safety precautions based on patient history or medication use has been addressed. Indication: Poor Venous Access, Other (need HD, hypotensive) Central Line: Dialysis Cath, Tri Lumen Position: Supine Area prepped with Chlorhexidine solution then draped using sterile barrier protection. Anesthesia: Lidocaine 1% Technique used: Seldinger Ultrasound Guided Assistance: Yes Site: Right Internal Jugular (attempted right groin first...able to get venous access (poor flow and unable to thread guidewire after 3 attempts). Tried left groin and met with same problem. Switched to right neck (prep drape as above). Rt IJ access after one attempt. Ultrasound was used for bilat groins u nsuccessfully.) Dark venous non-pulsatile flow noted from hub of needle. The catheter was introduced. Guide wire removed intact. Each port aspirated then flushed with sterile normal saline and capped. Line secured to skin with nylon suture. Biopatch placed around base of line. Sterile occlusive dressing applied. No complications. Patient tolerated the procedure well. STAT chest xray ordered to confirm position and rule out pneumothorax
[2019-08-26] MEDS: BACITRACIN 15 GM TUBE TOPICAL OINTMENT TP SCH (15:16)
[2019-08-26] MEDS ORDERED: ALBUMIN HUMAN 25% 12.5 GM/50 ML VIAL IVPB ONE ×2 (15:39→15:40)
--- NOTE | 2019-08-26 15:44 | PN ---
Progress Note (short form) - Note Progress Note: - pts bp is worse - ICU eval - discussed with medical team, they will start pressor agents - overall prognosis remains poor, this was discussed with daughter - hold of HD for now until she is more stable Problem List - Problems (1) CHF (congestive heart failure) Code(s): I50.9 - HEART FAILURE, UNSPECIFIED Qualifiers: Heart failure chronicity: chronic (2) Renal failure Code(s): N19 - UNSPECIFIED KIDNEY FAILURE (3) Renal transplant recipient Code(s): Z94.0 - KIDNEY TRANSPLANT STATUS
[2019-08-26] MEDS ORDERED: DOPAMINE HCL 400,000 MCG in SODIUM CHLORIDE 240 ML IV SCH (15:45)
--- NOTE | 2019-08-26 16:00 | RAPID ---
Physical Examination Vital Signs: Vital Signs Temperature 97.9 F 08/26/19 13:07 Pulse Rate 50 L 08/26/19 15:21 Respiratory Rate 28 H 08/26/19 15:21 Blood Pressure 68/29 L 08/26/19 15:21 O2 Sat by Pulse Oximetry (%) 100 08/25/19 21:00 BP 63/28 HR 50 O2 sat 100% Findings/Remarks: Rapid response called on . Patient was about to be put on to dialysis machine, however vitals were taken at that moment. Vitals were 59/30 HR 51 o2 sat of 100%. Patient was then put in trendelenburg position, was noted to have O2 sat drop to 22%. Patient was repositioned and BP was remeasured to be 56/30 HR 50 O2 of 94%. Patient was suctioned. Patient had diffuse crackles in b/l lungs. Baseline mental activity. Decision was made to give patient Albumin 25 grams, and repeat cbc,cmp, mag, phos. Primary team was made aware. Dialysis was not peformed, spoke with Nephrology. Spoke with ID and gave 1 gram of Vancomycin. ICU consulted, will hang dopamine drip and arrange for later transfer with MD monitoring. As per discussion with Dr. Ward, he spoke with patient's family. Family does not want compressions or pressors. Family amenable to small fluid bolus. Primary team will write a note with further explanation. At 5:[address] Ward patient's family wishes DNR/DNI. Order pl aced (amy phone order). Family is aware of her condition and is en route to see the patient. They do not want transfusion of blood despite knowledge of Hemoglobin of 4.9 Dr. Ward will follow up with full note and paper work. Labs: CBC, BMP 08/23/19 10:50 08/25/19 15:15
[2019-08-26] MEDS: ALBUMIN HUMAN 25% 12.5 GM/50 ML VIAL IVPB ONE ×2 (16:17→16:53)
[2019-08-26] MEDS ORDERED: SODIUM CHLORIDE 250 ML IV STA ×2 (16:29→17:14)
[2019-08-26 16:55] LABS: BASO % 0.2 % (0-2.0); EOS % 0.1 % (0-4.5); HEMATOCRIT 15.1 % (32.4-45.2); MCH 31.2 pg (25.7-33.7); MCHC 32.4 g/dl (32.0-36.0); MEAN CELL VOLUME 96.3 fl (80-96); MEAN PLT VOLUME 8.1 fl (7.5-11.1); MONO % 2.2 % (3.8-10.2); NEUT % 94.5 % (42.8-82.8); PLATELET COUNT 118 K/MM3 (134-434); RBC 1.57 M/mm3 (3.60-5.2); WHITE BLOOD COUNT 21.8 K/mm3 (4.0-10.0)
[2019-08-26 17:01] LABS: HEMOGLOBIN 4.9 GM/dL (10.7-15.3)
[2019-08-26 17:53] LABS: ALBUMIN 1.8 g/dl (3.4-5.0); BILIRUBIN,TOTAL 0.4 mg/dL (0.2-1); CALCIUM 7.9 mg/dL (8.5-10.1); MAGNESIUM 2.8 mg/dL (1.8-2.4); POTASSIUM 4.5 mmol/L (3.5-5.1)
[2019-08-26 17:56] LABS: BLOOD UREA NITROGEN 137.6 mg/dL (7-18); PHOSPHOROUS 9.1 mg/dL (2.5-4.9)
[2019-08-26] MEDS ORDERED: PANTOPRAZOLE SODIUM 40 MG VIAL IVPUSH SCH (18:00)
[2019-08-26] MEDS: COLLAGENASE CLOSTRIDIUM HIST. 30 GRAMS TUBE TP SCH (18:00)
[2019-08-26 18:22] LABS: ANISOCYTOSIS 1+; MACROCYTOSIS 2+; PLATELET ESTIMATE DECREASED
[2019-08-26] MEDS: levETIRAcetam 500 MG/5 ML ORAL SOLUTION (UNIT-DOSE CUPS) GT SCH (18:51)
--- NOTE | 2019-08-26 19:04 | CONSULT ---
Consult - text type - Consultation Consultation Note: NEUROLOGY CONSULTATION is greatly appreciated: Events reviewed and discussewd with Kacie De La Cruz last night. Patient examined with her and daughter, Tanja, at the bedside. This 63 yo RH, woman with ESRD, is s/p Renal transplant (15months ago), complicated by aspirgillis pneumonia due to immunosuppression. Trach/.vent dependent, Anemia, HTN, CHF. s/p PEG. Daughter notes chronic Leukocytosis x 1 year. Now admited with pneumonia, hypotension, tachycardia and fever. On multiple antibiotics for persistent pulmonary infiltrates. Has not had antifungal Rx. During the hospitalization patient has had progressive increase in leukocytosis and progressive hypotension. Today, could not be dialyzed due to BP < 60 systolic, and desaturation to 22%%. This AM Cr/BUN= 6/137. Saturday night Pt had the new onset of seizures. Given Keppra. Seizures recurred x 2 last night. Given Lorazepam x2 and Keppra 750 (in anticipation of HD today) Now on levetiracetam 250 BID. Levetiracetam levels not sent. ADALBERTO: On vent. Neck supple. BP palp. Cold skin temperature NEURO: No response to name or sternal pressure. + spontaneous respirations Pupils unreactive. 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 C/W severe cerebral hypoperfusion (anoxic/hypoxic) encephalopathy and severe Toxic metabolic encephalopathy. New onset seizures due to cerebral hypoperfusion. SUGGEST: Pressors if desired. Low volume HD Levetiracetam levels. Continue levetiracetam 250 BID Prognosis grave. Discussed with family. Thank you very much, Satish Guadalupe MD
[2019-08-26] MEDS: ALBUTEROL SO4 2.5/IPRATROPIUM 0.5 INH SOL 3 ML VIAL.NEB. NEB SCH (20:02)
[2019-08-27] MEDS ORDERED: INSULIN (NOVOLOG) ASPART 100 UNITS/ML 10ML VIAL ONE (01:35)
[2019-08-27] MEDS: CEFTOLOZANE IVPB SCH ×2 (01:49→11:07)
[2019-08-27] MEDS: DEXTROSE 5% IVPB SCH ×2 (01:49→11:07)
[2019-08-27] MEDS: TAZOBACTAM IVPB SCH ×2 (01:49→11:07)
[2019-08-27] MEDS: INSULIN SLIDING SCALE (NOVOLOG) 1 VIAL SQ SCH ×4 (01:49→18:52)
[2019-08-27] MEDS: WATER IVPB SCH ×2 (01:49→11:07)
[2019-08-27] MEDS ORDERED: SODIUM CHLORIDE 250 ML IV STA (03:27)
[2019-08-27] MEDS: FUROSEMIDE 40 MG/4 ML INJECTABLE VIAL IVPB SCH (07:41)
[2019-08-27] MEDS: ALBUTEROL SO4 2.5/IPRATROPIUM 0.5 INH SOL 3 ML VIAL.NEB. NEB SCH ×4 (09:30→20:40)
[2019-08-27] MEDS: AZITHROMYCIN IVPB 500 MG/250 ML BAG IVPB SCH (10:00)
[2019-08-27] MEDS: predniSONE 10 MG TABLET (UD) PO SCH (11:07)
[2019-08-27] MEDS: levETIRAcetam 500 MG/5 ML ORAL SOLUTION (UNIT-DOSE CUPS) GT SCH ×2 (11:07→21:38)
--- NOTE | 2019-08-27 14:35 | PN ---
Progress Note, Physician History of Present Illness: Pt remains hypotensive and bradycardic. She is minimally responsive. - Current Medication List Current Medications: Active Medications Albuterol/Ipratropium (Duoneb -) 1 amp NEB RQID [facility] Last Admin: 08/26/19 20:02 Dose: 1 amp Documented by: Bacitracin (Bacitracin -) 1 applic TP DAILY [facility] Last Admin: 08/26/19 15:16 Dose: 1 applic Documented by: Collagenase (Santyl -) 1 applic TP DAILY [facility]; Protocol Last Admin: 08/26/19 18:00 Dose: 1 applic Documented by: Ceftolozane/Tazobactam 0.375 (gm/ Dextrose) 102.85 mls @ 102.85 mls/hr IVPB Q8H [facility] Last Admin: 08/27/19 11:07 Dose: 102.85 mls/hr Documented by: Azithromycin (Zithromax 500mg Ivpb (Pre-Docked)) 500 mg in 250 mls @ 250 mls/hr IVPB DAILY [facility] Last Admin: 08/26/19 22:05 Dose: 250 mls/hr Documented by: Insulin Aspart (Novolog Vial Sliding Scale -) 1 vial SQ Q6HPO [facility]; Protocol Last Admin: 08/27/19 06:39 Dose: 2 unit Documented by: Levetiracetam (Keppra Oral Solution -) 250 mg GT BID [facility] Last Admin: 08/27/19 11:07 Dose: 250 mg Documented by: Prednisone (Deltasone -) 10 mg PO DAILY [facility] Last Admin: 08/27/19 11:07 Dose: 10 mg Documented by: - Objective Vital Signs: Vital Signs Temperature 96.8 F L 08/27/19 12:20 Pulse Rate 52 L 08/27/19 12:20 Respiratory Rate 23 H 08/27/19 12:20 Blood Pressure 62/36 L 08/27/19 12:20 O2 Sat by Pulse Oximetry (%) 100 08/27/19 09:45 Constitutional: Yes: Calm Eyes: Yes: Conjunctiva Clear HENT: Yes: Other (trache) Neck: Yes: Supple Cardiovascular: Yes: S1, S2 Respiratory: Yes: Mechanically Ventilated Gastrointestinal: Yes: Soft Genitourinary: Yes: Christy Present Edema: Yes (anasarca) Edema: LUE: 3+, RUE: 3+, LLE: 2+, RLE: 2+ Neurological: Yes: Lethargy Labs: CBC, BMP 08/26/19 16:00 08/26/19 16:00 INR, PTT INR 1.03 (0.83-1.09) 08/17/19 13:00 Problem List - Problems (1) CHF (congestive heart failure) Code(s): I50.9 - HEART FAILURE, UNSPECIFIED Qualifiers: Heart failure chronicity: chronic (2) Renal failure Code(s): N19 - UNSPECIFIED KIDNEY FAILURE (3) Renal transplant recipient Code(s): Z94.0 - KIDNEY TRANSPLANT STATUS Assessment/Plan Current Medications Generic Name Dose Route Start Last Admin Trade Name Freq PRN Reason Stop Dose Admin Albuterol/Ipratropium 1 amp 08/26/19 20:45 08/26/19 20:02 Duoneb - NEB 1 amp RQID [facility] Administration Bacitracin 1 applic 08/24/19 16:00 08/26/19 15:16 Bacitracin - TP 1 applic DAILY [facility] Administration Collagenase 1 applic 08/21/19 10:00 08/26/19 18:00 Santyl - TP 1 applic DAILY [facility] Administration Protocol Ceftolozane/Tazobactam 0.375 102.85 mls @ 102.85 mls/hr 08/21/19 18:00 08/27/19 11:07 gm/ Dextrose IVPB 102.85 mls/hr Q8H [facility] Administration Azithromycin 500 mg in 250 mls @ 250 mls/hr 08/26/19 19:30 08/26/19 22:05 Zithromax 500mg Ivpb (Pre-Docked) IVPB 250 mls/hr DAILY [facility] Administration Insulin Aspart 1 vial 08/26/19 10:02 08/27/19 06:39 Novolog Vial Sliding Scale - SQ 2 unit Q6HPO [facility] Administration Protocol Levetiracetam 250 mg 08/26/19 18:00 08/27/19 11:07 Keppra Oral Solution - GT 250 mg BID [facility] Administration Prednisone 10 mg 08/26/19 18:00 08/27/19 11:07 Deltasone - PO 10 mg DAILY [facility] Administration Impression 1. GORDON 2. kidney transplant - maintained with prednisone 10 mg daily 3. chronic resp failure with trache 4. peg tube 5. r/o covid19 6. sepsis 7. anemia 8. hypotension 9. shock 10. lactic acidosis 11. CKD Plan - pt remains hypotensive - renal function worsening - family did not want prbc transfusing per medicine - prognosis poor - vent support - pt now DNR
[2019-08-27] MEDS: BACITRACIN 15 GM TUBE TOPICAL OINTMENT TP SCH (15:00)
[2019-08-27] MEDS ORDERED: AZITHROMYCIN IVPB 500 MG/250 ML BAG IVPB SCH (15:15)
--- NOTE | 2019-08-27 17:08 | PN ---
Progress Note, Physician Chief Complaint: I SPOKE WITH THOMAS MULTIPLE TIMES YESTERDAY AND TODAY OUTLINING ADVANCED DIRECTIVES AND PLANS OF CARE. THOMAS AND HER DAD LORRAINE AGREE FOR A DNR, COMFORT MEASURES NO HEROIC TREATMENT WITH A STOP ON ALL LABS/MEDICATIONS/DIALYSIS. - Current Medication List Current Medications: Active Medications Albuterol/Ipratropium (Duoneb -) 1 amp NEB RQID [facility] Last Admin: 08/27/19 15:00 Dose: 1 amp Documented by: Bacitracin (Bacitracin -) 1 applic TP DAILY [facility] Last Admin: 08/26/19 15:16 Dose: 1 applic Documented by: Collagenase (Santyl -) 1 applic TP DAILY [facility]; Protocol Last Admin: 08/26/19 18:00 Dose: 1 applic Documented by: Ceftolozane/Tazobactam 0.375 (gm/ Dextrose) 102.85 mls @ 102.85 mls/hr IVPB Q8H [facility] Last Admin: 08/27/19 11:07 Dose: 102.85 mls/hr Documented by: Azithromycin (Zithromax 500mg Ivpb (Pre-Docked)) 500 mg in 250 mls @ 250 mls/hr IVPB DAILY [facility] Last Admin: 08/27/19 15:38 Dose: 250 mls/hr Documented by: Insulin Aspart (Novolog Vial Sliding Scale -) 1 vial SQ Q6HPO [facility]; Protocol Last Admin: 08/27/19 06:39 Dose: 2 unit Documented by: Levetiracetam (Keppra Oral Solution -) 250 mg GT BID [facility] Last Admin: 08/27/19 11:07 Dose: 250 mg Documented by: Prednisone (Deltasone -) 10 mg PO DAILY [facility] Last Admin: 08/27/19 11:07 Dose: 10 mg Documented by: - Objective Vital Signs: Vital Signs Temperature 96 F L 08/27/19 14:00 Pulse Rate 48 L 08/27/19 15:54 Respiratory Rate 28 H 08/27/19 16:16 Blood Pressure 62/27 L 08/27/19 15:54 O2 Sat by Pulse Oximetry (%) 100 08/27/19 09:45 Constitutional: Yes: Severe Distress Cardiovascular: Yes: Bradycardia Respiratory: Yes: Diminished, Mechanically Ventilated Genitourinary: Yes: Christy Present Musculoskeletal: Yes: Muscle Weakness Neurological: Yes: Unresponsive Labs: CBC, BMP 08/26/19 16:00 08/26/19 16:00 INR, PTT INR 1.03 (0.83-1.09) 08/17/19 13:00 Problem List - Problems (1) Anemia Code(s): D64.9 - ANEMIA, UNSPECIFIED (2) CHF (congestive heart failure) Code(s): I50.9 - HEART FAILURE, UNSPECIFIED Qualifiers: Heart failure chronicity: chronic (3) Chronic respiratory failure with hypoxia and hypercapnia Code(s): J96.11 - CHRONIC RESPIRATORY FAILURE WITH HYPOXIA; J96.12 - CHRONIC RESPIRATORY FAILURE WITH HYPERCAPNIA (4) HTN (hypertension) Code(s): I10 - ESSENTIAL (PRIMARY) HYPERTENSION (5) PNA (pneumonia) Code(s): J18.9 - PNEUMONIA, UNSPECIFIED ORGANISM (6) Renal failure Code(s): N19 - UNSPECIFIED KIDNEY FAILURE (7) Renal transplant recipient Code(s): Z94.0 - KIDNEY TRANSPLANT STATUS (8) Seizure disorder Code(s): G40.909 - EPILEPSY, UNSP, NOT INTRACTABLE, WITHOUT STATUS EPILEPTICUS (9) Sepsis Code(s): A41.9 - SEPSIS, UNSPECIFIED ORGANISM Assessment/Plan PATIENT IS DNR COMPASSIONATE CARE KEEP ON VENT NO PRESSORS NO CHEST COMPRESSIONS PULM F/U STOP DIALYSIS NO BLOOD DRAWS
[2019-08-27] MEDS ORDERED: SCOPOLAMINE HYDROBROMIDE 1 PATCH PATCH.TD72 TD SCH (17:15)
[2019-08-27] MEDS: COLLAGENASE CLOSTRIDIUM HIST. 30 GRAMS TUBE TP SCH (18:54)
[2019-08-27] MEDS ORDERED: PT OWN MED DRAWER 7, Y5N ONE (20:35)
[2019-08-27] MEDS: MORPHINE SULFATE 2 MG/ML VIAL IVPUSH PRN (21:34)
[2019-08-28] MEDS: INSULIN SLIDING SCALE (NOVOLOG) 1 VIAL SQ SCH ×3 (03:36→12:16)
[2019-08-28] MEDS: ALBUTEROL SO4 2.5/IPRATROPIUM 0.5 INH SOL 3 ML VIAL.NEB. NEB SCH ×4 (07:45→20:39)
[2019-08-28] MEDS: levETIRAcetam 500 MG/5 ML ORAL SOLUTION (UNIT-DOSE CUPS) GT SCH ×2 (09:45→23:26)
[2019-08-28] MEDS: predniSONE 10 MG TABLET (UD) PO SCH (09:45)
[2019-08-28] MEDS: MORPHINE SULFATE 2 MG/ML VIAL IVPUSH PRN ×3 (09:47→23:26)
[2019-08-28] MEDS: BACITRACIN 15 GM TUBE TOPICAL OINTMENT TP SCH (09:49)
[2019-08-28] MEDS: COLLAGENASE CLOSTRIDIUM HIST. 30 GRAMS TUBE TP SCH (10:24)
--- NOTE | 2019-08-28 14:40 | PN ---
Progress Note, Physician Chief Complaint: hypotension and fevers History of Present Illness: 63 year old female with PMH ESRD, s/p renal transplant, left avf, anemia, htn, chf, trach/peg presents to the ED with hypotension and fevers, admitted to ICU and transferred to [facility], consulted by neurology, nephrology, cardiology, pulmonology - Current Medication List Current Medications: Active Medications Albuterol/Ipratropium (Duoneb -) 1 amp NEB RQID [facility] Last Admin: 08/28/19 12:33 Dose: 1 amp Documented by: Bacitracin (Bacitracin -) 1 applic TP DAILY [facility] Last Admin: 08/28/19 09:49 Dose: 1 applic Documented by: Collagenase (Santyl -) 1 applic TP DAILY [facility]; Protocol Last Admin: 08/28/19 10:24 Dose: 1 applic Documented by: Insulin Aspart (Novolog Vial Sliding Scale -) 1 vial SQ Q6HPO [facility]; Protocol Last Admin: 08/28/19 12:16 Dose: Not Given Documented by: Levetiracetam (Keppra Oral Solution -) 250 mg GT BID [facility] Last Admin: 08/28/19 09:45 Dose: 250 mg Documented by: Morphine Sulfate (Morphine Sulfate) 2 mg IVPUSH Q4H PRN PRN Reason: PAIN LEVEL 6-10 Last Admin: 08/28/19 09:47 Dose: 2 mg Documented by: Prednisone (Deltasone -) 10 mg PO DAILY [facility] Last Admin: 08/28/19 09:45 Dose: 10 mg Documented by: Scopolamine HBr (Transderm-Scop -) 1 patch TD Q72H [facility] Last Admin: 08/27/19 21:37 Dose: 1 patch Documented by: - Objective Vital Signs: Vital Signs Temperature 97.3 F L 08/28/19 05:30 Pulse Rate 50 L 08/28/19 10:00 Respiratory Rate 26 H 08/28/19 12:00 Blood Pressure 110/90 08/28/19 10:00 O2 Sat by Pulse Oximetry (%) 98 08/28/19 09:00 Constitutional: Yes: Other HENT: Yes: Atraumatic, Normocephalic Neck: Yes: Other (trach, cvc, mechanically vented) Cardiovascular: Yes: Bradycardia Respiratory: Yes: Diminished Gastrointestinal: Yes: Distention, Other (peg) ...Rectal Exam: Yes: Other (flexiseal) Genitourinary: Yes: Lucia Present Extremities: Yes: Cool Edema: LUE: 2+, LLE: 1+, RLE: 1+ Integumentary: Yes: Pressure Ulcer (sacral) Neurological: Yes: Unresponsive Labs: CBC, BMP 08/26/19 16:00 08/26/19 16:00 INR, PTT INR 1.03 (0.83-1.09) 08/17/19 13:00 Problem List - Problems (1) Anemia Assessment/Plan: s/p transfusion receives procit as outpatient stool occult negative iv ppi monitor cbc Code(s): D64.9 - ANEMIA, UNSPECIFIED (2) PNA (pneumonia) Assessment/Plan: Pulm eval appreciated ID eval appreciated IV antbx completed course chest xray noted ct chest noted Code(s): J18.9 - PNEUMONIA, UNSPECIFIED ORGANISM (3) Renal failure Assessment/Plan: nephrology eval appreciated renal transplant patient ARF left avf no dialysis Code(s): N19 - UNSPECIFIED KIDNEY FAILURE (4) Renal transplant recipient Assessment/Plan: transplant physician Dr. Valdez at [facility] prednisone outpatient solucortef dc, continued outpatient prednisone regimen Code(s): Z94.0 - KIDNEY TRANSPLANT STATUS (5) Chronic respiratory failure with hypoxia and hypercapnia Assessment/Plan: pulm eval appreciated mechanically ventilated DNR Code(s): J96.11 - CHRONIC RESPIRATORY FAILURE WITH HYPOXIA; J96.12 - CHRONIC RESPIRATORY FAILURE WITH HYPERCAPNIA (6) HTN (hypertension) Assessment/Plan: hold home metoprolol tartrate off pressors Code(s): I10 - ESSENTIAL (PRIMARY) HYPERTENSION (7) CHF (congestive heart failure) Assessment/Plan: I & O monitor fluid status Code(s): I50.9 - HEART FAILURE, UNSPECIFIED Qualifiers: Heart failure chronicity: chronic (8) Seizure disorder Assessment/Plan: cont keppra neuro eval appreciated Code(s): G40.909 - EPILEPSY, UNSP, NOT INTRACTABLE, WITHOUT STATUS EPILEPTICUS Assessment/Plan DNR no heroic measures trach/peg bradycardic lucia with no output dc blood glucose monitoring, dc feeds- discussed with daughter Tanja over the telephone palliative f/u
--- NOTE | 2019-08-28 14:45 | PN ---
Progress Note, Physician History of Present Illness: Pt seen and examined. She remains lethargic. - Current Medication List Current Medications: Active Medications Albuterol/Ipratropium (Duoneb -) 1 amp NEB RQID [facility] Last Admin: 08/28/19 12:33 Dose: 1 amp Documented by: Bacitracin (Bacitracin -) 1 applic TP DAILY [facility] Last Admin: 08/28/19 09:49 Dose: 1 applic Documented by: Collagenase (Santyl -) 1 applic TP DAILY [facility]; Protocol Last Admin: 08/28/19 10:24 Dose: 1 applic Documented by: Insulin Aspart (Novolog Vial Sliding Scale -) 1 vial SQ Q6HPO [facility]; Protocol Last Admin: 08/28/19 12:16 Dose: Not Given Documented by: Levetiracetam (Keppra Oral Solution -) 250 mg GT BID [facility] Last Admin: 08/28/19 09:45 Dose: 250 mg Documented by: Morphine Sulfate (Morphine Sulfate) 2 mg IVPUSH Q4H PRN PRN Reason: PAIN LEVEL 6-10 Last Admin: 08/28/19 09:47 Dose: 2 mg Documented by: Prednisone (Deltasone -) 10 mg PO DAILY [facility] Last Admin: 08/28/19 09:45 Dose: 10 mg Documented by: Scopolamine HBr (Transderm-Scop -) 1 patch TD Q72H [facility] Last Admin: 08/27/19 21:37 Dose: 1 patch Documented by: - Objective Vital Signs: Vital Signs Temperature 97.3 F L 08/28/19 05:30 Pulse Rate 50 L 08/28/19 10:00 Respiratory Rate 26 H 08/28/19 12:00 Blood Pressure 110/90 08/28/19 10:00 O2 Sat by Pulse Oximetry (%) 98 08/28/19 09:00 Constitutional: Yes: Calm Neck: Yes: Other (trache) Cardiovascular: Yes: S1, S2 Respiratory: Yes: Mechanically Ventilated Genitourinary: Yes: Incontinence Edema: Yes Edema: LUE: 2+, RUE: 2+, LLE: 2+, RLE: 2+ Neurological: Yes: Lethargy Labs: CBC, BMP 08/26/19 16:00 08/26/19 16:00 INR, PTT INR 1.03 (0.83-1.09) 08/17/19 13:00 Problem List - Problems (1) CHF (congestive heart failure) Code(s): I50.9 - HEART FAILURE, UNSPECIFIED (2) Renal failure Code(s): N19 - UNSPECIFIED KIDNEY FAILURE (3) Renal transplant recipient Code(s): Z94.0 - KIDNEY TRANSPLANT STATUS Assessment/Plan Current Medications Generic Name Dose Route Start Last Admin Trade Name Freq PRN Reason Stop Dose Admin Albuterol/Ipratropium 1 amp 08/26/19 20:45 08/28/19 12:33 Duoneb - NEB 1 amp RQID [facility] Administration Bacitracin 1 applic 08/24/19 16:00 08/28/19 09:49 Bacitracin - TP 1 applic DAILY [facility] Administration Collagenase 1 applic 08/21/19 10:00 08/28/19 10:24 Santyl - TP 1 applic DAILY [facility] Administration Protocol Insulin Aspart 1 vial 08/26/19 10:02 08/28/19 12:16 Novolog Vial Sliding Scale - SQ Not Given Q6HPO [facility] Protocol Levetiracetam 250 mg 08/26/19 18:00 08/28/19 09:45 Keppra Oral Solution - GT 250 mg BID [facility] Administration Morphine Sulfate 2 mg 08/27/19 17:15 08/28/19 09:47 Morphine Sulfate IVPUSH 2 mg Q4H PRN Administration PAIN LEVEL 6-10 Prednisone 10 mg 08/26/19 18:00 08/28/19 09:45 Deltasone - PO 10 mg DAILY [facility] Administration Scopolamine HBr 1 patch 08/27/19 17:15 08/27/19 21:37 Transderm-Scop - TD 1 patch Q72H [facility] Administration Impression 1. GORDON 2. kidney transplant - maintained with prednisone 10 mg daily 3. chronic resp failure with trache 4. peg tube 5. r/o covid19 6. sepsis 7. anemia 8. hypotension 9. shock 10. lactic acidosis 11. CKD Plan - bp remains very labile - family do not want heroic measures - no new labs - cont current management - will follow prn, recall as needed
[2019-08-28 19:07] LABS: HEP B CORE AB, TOT Positive (Negative)
[2019-08-29 00:09] VITALS: TEMP 96
[2019-08-29] MEDS: MORPHINE SULFATE 2 MG/ML VIAL IVPUSH PRN ×3 (04:58→11:33)
[2019-08-29] MEDS: ALBUTEROL SO4 2.5/IPRATROPIUM 0.5 INH SOL 3 ML VIAL.NEB. NEB SCH (08:00)
--- NOTE | 2019-08-29 10:40 | PN ---
Progress Note (short form) - Note Progress Note: PULMONARY Vented, poorly responsive. No pressors. No fevers. Agonal breaths and hypotensive. Vital Signs Period Temp Pulse Resp BP Sys/Huff Pulse Ox Last 24 Hr 96.0 F-96.4 F 48-90 20-28 51-101/30-85 Gen: vented, poorly responsive, less tachypneic Heart: RRR Lung: scattered rhonchi Abd: soft, nontender Ext: + edema CBC, BMP 08/26/19 16:00 08/26/19 16:00 Active Medications Albuterol/Ipratropium (Duoneb -) 1 amp NEB RQID [facility] Last Admin: 08/28/19 20:39 Dose: 1 amp Documented by: Bacitracin (Bacitracin -) 1 applic TP DAILY [facility] Last Admin: 08/28/19 09:49 Dose: 1 applic Documented by: Collagenase (Santyl -) 1 applic TP DAILY [facility]; Protocol Last Admin: 08/28/19 10:24 Dose: 1 applic Documented by: Levetiracetam (Keppra Oral Solution -) 250 mg GT BID [facility] Last Admin: 08/28/19 23:26 Dose: 250 mg Documented by: Morphine Sulfate (Morphine Sulfate) 2 mg IVPUSH Q4H PRN PRN Reason: PAIN LEVEL 6-10 Last Admin: 08/29/19 04:58 Dose: 2 mg Documented by: Prednisone (Deltasone -) 10 mg PO DAILY [facility] Last Admin: 08/28/19 09:45 Dose: 10 mg Documented by: Scopolamine HBr (Transderm-Scop -) 1 patch TD Q72H [facility] Last Admin: 08/27/19 21:37 Dose: 1 patch Documented by: A/P Acute on Chronic Hypoxic Respiratory Failure Pneumonia Septic Shock Acute on Chronic Renal Failure h/o Renal Transplant Lactic Acidosis Hyponatremia CHF HTN Anemia - agree with comfort measures - titrate morphine to comfort
--- NOTE | 2019-08-29 11:06 | PN ---
Progress Note, Physician Chief Complaint: COMFORTABLE NO DISTRESS NO EVENTS OVERNIGHT - Current Medication List Current Medications: Active Medications Albuterol/Ipratropium (Duoneb -) 1 amp NEB RQID [facility] Last Admin: 08/29/19 08:00 Dose: 1 amp Documented by: Bacitracin (Bacitracin -) 1 applic TP DAILY [facility] Last Admin: 08/28/19 09:49 Dose: 1 applic Documented by: Collagenase (Santyl -) 1 applic TP DAILY [facility]; Protocol Last Admin: 08/28/19 10:24 Dose: 1 applic Documented by: Levetiracetam (Keppra Oral Solution -) 250 mg GT BID [facility] Last Admin: 08/28/19 23:26 Dose: 250 mg Documented by: Morphine Sulfate (Morphine Sulfate) 2 mg IVPUSH Q4H PRN PRN Reason: PAIN LEVEL 6-10 Last Admin: 08/29/19 04:58 Dose: 2 mg Documented by: Prednisone (Deltasone -) 10 mg PO DAILY [facility] Last Admin: 08/28/19 09:45 Dose: 10 mg Documented by: Scopolamine HBr (Transderm-Scop -) 1 patch TD Q72H [facility] Last Admin: 08/27/19 21:37 Dose: 1 patch Documented by: - Objective Vital Signs: Vital Signs Temperature 96.0 F L 08/28/19 22:00 Pulse Rate 48 L 08/29/19 09:01 Respiratory Rate 20 08/29/19 09:01 Blood Pressure 61/31 L 08/29/19 09:01 O2 Sat by Pulse Oximetry (%) 100 08/29/19 08:00 Constitutional: Yes: Mild Distress Cardiovascular: Yes: Pulse Irregular Respiratory: Yes: Diminished, Mechanically Ventilated Gastrointestinal: Yes: Soft Genitourinary: Yes: Incontinence Neurological: Yes: Unresponsive Labs: CBC, BMP 08/26/19 16:00 08/26/19 16:00 INR, PTT INR 1.03 (0.83-1.09) 08/17/19 13:00 Problem List - Problems (1) Anemia Code(s): D64.9 - ANEMIA, UNSPECIFIED (2) CHF (congestive heart failure) Code(s): I50.9 - HEART FAILURE, UNSPECIFIED Qualifiers: Heart failure chronicity: chronic (3) Chronic respiratory failure with hypoxia and hypercapnia Code(s): J96.11 - CHRONIC RESPIRATORY FAILURE WITH HYPOXIA; J96.12 - CHRONIC RESPIRATORY FAILURE WITH HYPERCAPNIA (4) HTN (hypertension) Code(s): I10 - ESSENTIAL (PRIMARY) HYPERTENSION (5) PNA (pneumonia) Code(s): J18.9 - PNEUMONIA, UNSPECIFIED ORGANISM (6) Renal failure Code(s): N19 - UNSPECIFIED KIDNEY FAILURE (7) Renal transplant recipient Code(s): Z94.0 - KIDNEY TRANSPLANT STATUS (8) Seizure disorder Code(s): G40.909 - EPILEPSY, UNSP, NOT INTRACTABLE, WITHOUT STATUS EPILEPTICUS (9) Sepsis Code(s): A41.9 - SEPSIS, UNSPECIFIED ORGANISM Assessment/Plan PATIENT IS DNR COMPASSIONATE CARE KEEP ON VENT NO PRESSORS NO CHEST COMPRESSIONS PULM F/U STOP DIALYSIS NO BLOOD DRAWS
[2019-08-29] MEDS: predniSONE 10 MG TABLET (UD) PO SCH (11:12)
[2019-08-29] MEDS: levETIRAcetam 500 MG/5 ML ORAL SOLUTION (UNIT-DOSE CUPS) GT SCH ×2 (11:13→21:54)
[2019-08-29] MEDS: BACITRACIN 15 GM TUBE TOPICAL OINTMENT TP SCH (11:13)
[2019-08-29] MEDS: COLLAGENASE CLOSTRIDIUM HIST. 30 GRAMS TUBE TP SCH (11:13)
[2019-08-29 22:10] VITALS: BP 68/22; PULSE 28
--- NOTE | 2019-08-29 23:28 | HOSP ---
Subjective - Review of Symptoms Events since last encounter: Hospitalist Encounter Notified by the RN that the patient was unresponsive and is a DNR, was asked to assess. Arrived to bedside, patient is unresponsive, no response to verbal or tactile stimulus, no spontaneous respirations, no apical or palpable pulses, pupils fixed and dilated, no corneal reflex, no gag reflex, no voluntary movement of extremities. Time pronounced 23:16. Physical Examination Vital Signs: Vital Signs Temperature 96.0 F L 08/28/19 22:00 Pulse Rate 28 L 08/29/19 22:00 Respiratory Rate 12 08/29/19 22:00 Blood Pressure 68/22 L 08/29/19 22:00 O2 Sat by Pulse Oximetry (%) 100 08/29/19 09:00 Constitutional: Yes: Pallor, Other (unresponsive) Eyes: Yes: Other (pupils fixed and dilated, no corneal reflex) Cardiovascular: Yes: Other (no apical or palpable pulses) Respiratory: Yes: Mechanically Ventilated (trach), Other (no spotaneous respirations) Gastrointestinal: Yes: Soft, Other (absent BS) Edema: Yes Edema: LLE: 1+, RLE: 1+ Peripheral Pulses WNL: No Neurological: Yes: Unresponsive Labs: CBC, BMP 08/26/19 16:00 08/26/19 16:00 Hospitalist Encounter Assessment: 63yF with PMH seizures, ESRD s/p kidney transplant, HTN, CHF, chronic resp failure s/p trach/peg admitted for sepsis due to pneumonia with acute on chronic respiratory failure. Plan: 23:16 RN to notify family and VENKATA RN to prepare body for Mariella RN to notify PMD in am
--- NOTE | 2019-08-30 10:46 | DS ---
Physical Examination Vital Signs: Vital Signs Temperature 96.0 F L 08/28/19 22:00 Pulse Rate 28 L 08/29/19 22:00 Respiratory Rate 12 08/29/19 22:00 Blood Pressure 68/22 L 08/29/19 22:00 O2 Sat by Pulse Oximetry (%) 100 08/29/19 09:00 Findings/Remarks: Labs: CBC, BMP 08/26/19 16:00 08/26/19 16:00 Discharge Summary Problems reviewed: Yes Reason For Visit: SEPSIS Condition: - Instructions Referrals: Manas Michael MD [Primary Care Provider] - Disposition: - Home Medications Comprehensive Discharge Medication List: Ambulatory Orders Tacrolimus [Prograf] 5 mg GT BID 12/02/18 Vitamins A and D [Vitamin A and D] 113.4 gm TP BID 12/02/18 levETIRAcetam [Keppra Oral Solution -] 750 mg GT DAILY 12/02/18 Aa/Hydrolyzed Collagen, Whey [Lps 15-30 Liquid] 30 ml PO DAILY 12/30/18 Cholecalciferol (Vitamin D3) [Vitamin D3 -] 800 unit GT BID 12/30/18 Darbepoetin Mervin [Aranesp] 40 mcg IM WEEKLY 12/30/18 Fluconazole [Diflucan 40Mg/ml Suspension -] 5 ml GT TID 12/30/18 Heparin - 5,000 unit SQ BID 12/30/18 Lidocaine 5% Patch [Lidoderm Patch -] 1 patch TP DAILY 12/30/18 Metoprolol Tartrate 25 mg PO BID 12/30/18 Tramadol HCl [Ultram] 50 mg GT Q6H PRN 12/30/18
--- NOTE | 2019-08-31 14:22 | PATH ---
Surgical Pathology Report Patient Name: BONITA RUEDA Med. Rec. #: [id number] /Age/Gender: 1955 (Age: 63) / F Account: [id number] Location: [address] [place] [address] Taken: 08/26/2019 Received: 08/27/2019 Reported: 08/31/2019 Physicians: Serenity Emmanuel M.D. Specimen(s) Received PERIPHERAL BLOOD Clinical History Leukocytosis Final Diagnosis COMPREHENSIVE FLOW PANEL performed and interpreted at [facility], [place], [place] ([id number]) shows the following: INTERPRETATION: No atypical flow cytometric findings seen. Phenotype: Granulocytes comprise about 95% of the WBCs and are immunophenotypically mature. Lymphocytes account for 2%. See [facility] report for additional details. Electronically Signed Ngoc Cao M.D. Gross Description Received are 2 green top tubes of peripheral blood which are sent [facility]. /08/27/2019 saudi/08/27/2019
== END 2019-08-30 02:12 | disposition expired | DRG 870 ==
LOC: JER 23:08 → JERBED 08-14 08:19 → JICU 08-14 13:47 → J5S 08-20 21:32
PROVIDERS: ADMIT Family Medicine; ATTEND Family Medicine
PROC: 5A1955Z Respiratory Ventilation, Greater than 96 Consecutive Hours (ICD-10-PCS; principal; 2019-08-14)
PROC: 30233N1 Transfusion of Nonautologous Red Blood Cells into Peripheral Vein, Percutaneous Approach (ICD-10-PCS; 2019-08-14)
PROC: 05HM33Z Insertion of Infusion Device into Right Internal Jugular Vein, Percutaneous Approach (ICD-10-PCS; 2019-08-26)
DX: A41.02 Sepsis due to Methicillin resistant Staphylococcus aureus (principal); R65.21 Severe sepsis with septic shock; N18.6 End stage renal disease; J18.9 Pneumonia, unspecified organism; J96.21 Acute and chronic respiratory failure with hypoxia; J96.22 Acute and chronic respiratory failure with hypercapnia; G93.41 Metabolic encephalopathy; N17.9 Acute kidney failure, unspecified; Z94.0 Kidney transplant status; E87.2 Acidosis; E87.1 Hypo-osmolality and hyponatremia; G93.1 Anoxic brain damage, not elsewhere classified; R64 Cachexia; Z99.11 Dependence on respirator [ventilator] status; Z93.0 Tracheostomy status; D64.9 Anemia, unspecified; I95.9 Hypotension, unspecified; D72.829 Elevated white blood cell count, unspecified; Z68.22 Body mass index [BMI] 22.0-22.9, adult; R00.0 Tachycardia, unspecified
CPT/HCPCS: 36415; 36430; 36511; 36600; 71045-TC-FY; 80053; 80177; 81003; 82272; 82375; 82436; 82550; 82565; 82607; 82728; 82803; 82962; 83050; 83540; 83550; 83605; 83735; 83880; 84100; 84133; 84300; 84439; 84443; 84484; 85025; 85027; 85610; 85730; 86704; 86706; 86707; 86708; 86709; 86803; 86850; 86870; 86900; 86901; 86902; 86922; 87040; 87070; 87077; 87086; 87186; 87205; 87324; 87340; 87449; 87633; 87798; 87804; 87899; 88300-TC; 93005; 93010; 93931; 94002; 94640; 99291; G0480; J0131; J0695; J7030; P9038; P9047; P9058